=== PATIENT | female | born 1945 | race Caucasian/White ===

== ENCOUNTER → 2016-07-15 | Outpatient (REF) | payer MEDICARE ==
[2016-07-15 12:05] LABS: MEAN CORPUSCULAR HEMOGLOBIN 31.6 pg (27.0-33.0); MEAN CORPUSCULAR HGB CONC 34.4 g/dl (32.0-36.5); MEAN CORPUSCULAR VOLUME 91.9 fl (80.0-96.0); RED CELL DISTRIBUTION WIDTH 12.7 % (11.5-14.5); WHITE BLOOD COUNT 5.2 K/mm3 (4.0-10.0)
[2016-07-15 12:32] LABS: ALBUMIN 4.2 GM/DL (3.2-5.2); ALBUMIN/GLOBULIN RATIO 1.45 (1.00-1.93); ALKALINE PHOSPHATASE 83 U/L (45-117); ALT/SGPT 22 U/L (12-78); ANION GAP 7 MEQ/L (8-16); AST/SGOT 14 U/L (15-37); BILIRUBIN,TOTAL 0.5 MG/DL (0.2-1.0); BLOOD UREA NITROGEN 16 MG/DL (7-18); CALCIUM LEVEL 9.5 MG/DL (8.8-10.2); CARBON DIOXIDE LEVEL 31 MEQ/L (21-32); CHLORIDE LEVEL 104 MEQ/L (98-107); CHOLESTEROL LEVEL 174 MG/DL (<200); CREATININE FOR GFR 0.93 MG/DL (0.55-1.02); FERRITIN 34 NG/ML (8-252); GLOMERULAR FILTRATION RATE > 60.0 (>39); GLUCOSE, FASTING 108 MG/DL (83-110); PERCENT SATURATION 21.3 % (13.2-37.4); POTASSIUM SERUM 4.1 MEQ/L (3.5-5.1); SODIUM LEVEL 142 MEQ/L (136-145); TOTAL IRON BINDING CAPACITY 367 UG/DL (250-450); TOTAL PROTEIN 7.1 GM/DL (6.4-8.2); TRIGLYCERIDES LEVEL 120 MG/DL (<150)
== END ==
LOC: M SFHCPLAZ 08:22
PROVIDERS: ATTEND Family Medicine
DX: D64.9 Anemia, unspecified (principal); E78.2 Mixed hyperlipidemia

== ENCOUNTER → 2016-07-16 | Outpatient (CLI) | payer MEDICARE ==
--- NOTE | 2016-07-16 16:00 | REP ---
LEFT KNEE, FIVE VIEWS: HISTORY: Arthritis. There is no acute fracture or dislocation. There is narrowing of the joint spaces. Osteophytes are present on the femur, tibia and patella. IMPRESSION: Degenerative change as described above. Signed by Doug Butler MD 07/16/2016 04:01 P
== END ==
LOC: M ADAMS 15:06
PROVIDERS: ATTEND Family Medicine
DX: M17.12 Unilateral primary osteoarthritis, left knee (principal)

== ENCOUNTER 2016-10-22 06:24 | Day surgery (SDC) | payer MEDICARE ==
[~2016-10-22] VITALS: Ht 160 cm; Wt 94.8 kg
[~2016-10-22 06:24] MED LIST: CALC500T49 PO; LIPI10TA PO; LISI-538 PO; LUTE6CAP2 PO; NORV2TAB PO; OCUVCAP PO; OMEP40CA2 PO; STOO100C PO; TORS10TA3 PO; TYLE650T35 PO; VITA100067 PO
[2016-10-22] MEDS ORDERED: BALANCED SALT IRRIGATION SOLUTION 500ML BAG (FOR OR EYE MACHINE) As Ordered ONE (06:30)
[2016-10-22] MEDS ORDERED: LR 1,000 ML IV ONE (06:30)
[2016-10-22] MEDS ORDERED: ACETYLCHOLINE OPHTH SOLN 1% 2ML (MIOCHOL-E) As Ordered ONE (06:30)
[2016-10-22] MEDS ORDERED: LIDOCAINE 1% MDV 20ML VIAL SC ONE (06:30)
[2016-10-22] MEDS ORDERED: POVIDONE-IODINE 5% OPHTH PREP SOL 30ML As Ordered ONE (06:30)
[2016-10-22] MEDS ORDERED: DUOVISC (0.50ML VISCOAT/0.55ML PROVISC) OPHTH KIT As Ordered ONE (06:31)
[2016-10-22] MEDS ORDERED: LIDOCAINE 0.75%/EPINEPHRINE 0.025% IN BSS 1ML SYR INTRACAMERAL (OR ONLY) As Ordered ONE (06:31)
[2016-10-22] MEDS ORDERED: PROPARACAINE 0.5% OPHTH SOL 15ML OD ONE (07:00)
[2016-10-22] MEDS ORDERED: TROPICAMIDE 1% OPHTH SOLN 2ML OD ONE (07:00)
[2016-10-22] MEDS ORDERED: OFLOXACIN 0.3 % (OCUFLOX) OPTH SOL 5ML OD ONE (07:00)
[2016-10-22] MEDS ORDERED: PHENYLEPHRINE 2.5% OPHTH SOL 2ML OD ONE (07:00)
[2016-10-22] MEDS ORDERED: fentaNYL 100 MCG/2 ML INJECTION (J3010) As Ordered ONE (07:41)
[2016-10-22] MEDS ORDERED: MIDAZOLAM INJ 2 MG/2 ML VIAL (J2250) As Ordered ONE (07:41)
[2016-10-22 09:00] VITALS: BP 184/81
[2016-10-22] MEDS ORDERED: CEFUROXIME 1MG/0.1ML INTRACAMERAL INJ As Ordered ONE (10:06)
--- NOTE | 2016-10-22 17:00 | RO ---
DATE OF PROCEDURE: 10/22/2016 PREOPERATIVE DIAGNOSIS: Visually significant nuclear sclerotic cataract right eye. POSTOPERATIVE DIAGNOSIS: Visually significant nuclear sclerotic cataract right eye. PROCEDURE: Cataract extraction with use of phacoemulsification, and placement of intraocular lens, AU00T0 23.5D, right eye. SURGEON: Keon Galeas DO OPERATIONAL RISK ANALYST: ANESTHESIA: Local with monitored anesthesia care (MAC). COMPLICATIONS: None. POSTOPERATIVE CONDITION: Stable. INDICATION FOR SURGERY: Blurred vision right eye affecting patient's activities of daily living. DESCRIPTION OF PROCEDURE: The patient was seen in the preoperative area and properly identified. The correct operative eye was identified and marked. Attention was turned to that eye. The patient received topical antibiotics in the preoperative area. The patient then received topical dilating drops consisting of Tropicamide and Phenylephrine. The patient was then transferred to the operating room. The correct side was re-identified. The patient received topical anesthetics and antibiotics on the surface of the eye. The eye was prepped and draped in a sterile fashion. The upper and lower eyelids were isolated with Tegaderm tape, and the lids were held open with an adjustable speculum. Using a sideport blade, a paracentesis incision was made. Intraocular preservative-free lidocaine was then injected into the anterior chamber. Viscoelastic was then injected into the anterior chamber through the paracentesis. Using a 2.6 mm sharp-tipped keratome, the anterior chamber was entered via a temporal clear corneal incision. A continuous curvilinear capsulorrhexis was created with the aid of a 26g cystotome and utrata forceps. Hydrodissection was performed with balanced salt solution (BSS) on a blunt cannula until the nucleus was freely mobile. The crystalline lens was phacoemulsified and aspirated. Additional cohesive viscoelastic was placed into the capsular bag to deepen it. An AU00T0 23.5 lens D was placed into the capsular bag and confirmed by visualizing the continuous curvilinear capsulorrhexis. Additional irrigation and aspiration was used to remove cortical material and remaining viscoelastic. The clear corneal incision was hydrated with BSS on a blunt cannula. The lens was well positioned. The incisions were then tested for leaks and found to be negative. The eye was then palpated for appropriate pressure and adjusted accordingly with BSS. The eyelid speculum was carefully removed. A shield was placed. The patient tolerated the procedure well and was discharged to the recovery unit in a stable condition. [facility]
== END 2016-10-22 09:00 | disposition home or self-care (01) ==
LOC: M SDC 06:24
PROVIDERS: ATTEND Ophthalmology
DX: H25.11 Age-related nuclear cataract, right eye (principal); I10 Essential (primary) hypertension; E78.5 Hyperlipidemia, unspecified; D64.9 Anemia, unspecified; R01.1 Cardiac murmur, unspecified; K44.9 Diaphragmatic hernia without obstruction or gangrene; K21.9 Gastro-esophageal reflux disease without esophagitis; R06.83 Snoring; Z88.0 Allergy status to penicillin; Z88.1 Allergy status to other antibiotic agents; Z88.8 Allergy status to other drugs, medicaments and biological substances; Z79.899 Other long term (current) drug therapy; Z84.89 Family history of other specified conditions; Z78.0 Asymptomatic menopausal state
CPT/HCPCS: 66984; J2250; J3010; V2632

== ENCOUNTER → 2017-01-06 | Outpatient (REF) | payer MEDICARE ==
[2017-01-06 12:06] LABS: MEAN CORPUSCULAR HEMOGLOBIN 26.2 pg (27.0-33.0); MEAN CORPUSCULAR HGB CONC 30.8 g/dl (32.0-36.5); MEAN CORPUSCULAR VOLUME 85.1 fl (80.0-96.0); PLATELET COUNT, AUTOMATED 280 10^3/uL (150-450); RED CELL DISTRIBUTION WIDTH 12.6 % (11.5-14.5); RETIC HEMOGLOBIN EQUIVALENT 23.2 pg (24-36); RETICULOCYTE % 2.2 % (0.5-1.5); WHITE BLOOD COUNT 3.5 10^3/uL (4.0-10.0)
[2017-01-06 13:08] LABS: CALCIUM LEVEL 9.2 MG/DL (8.8-10.2); CREATININE FOR GFR 0.99 MG/DL (0.55-1.02); GLOMERULAR FILTRATION RATE 58.7 (>39); PERCENT SATURATION 6.3 % (13.2-45.0); POTASSIUM SERUM 4.3 MEQ/L (3.5-5.1)
== END ==
LOC: M SFHCPLAZ 09:02
PROVIDERS: ATTEND Family Medicine
DX: D50.8 Other iron deficiency anemias (principal); I10 Essential (primary) hypertension

== ENCOUNTER → 2017-06-02 | Outpatient (REF) | payer MEDICARE ==
[2017-06-02 11:46] LABS: HEMOGLOBIN 11.2 g/dl (12.0-15.5); MEAN CORPUSCULAR HEMOGLOBIN 29.9 pg (27.0-33.0); MEAN CORPUSCULAR HGB CONC 32.9 g/dl (32.0-36.5); MEAN CORPUSCULAR VOLUME 90.7 fl (80.0-96.0); PLATELET COUNT, AUTOMATED 215 10^3/uL (150-450); RED BLOOD COUNT 3.75 10^6/uL (4.00-5.40); RED CELL DISTRIBUTION WIDTH 12.7 % (11.5-14.5); RETIC HEMOGLOBIN EQUIVALENT 35.2 pg (24-36); RETICULOCYTE # 59.6 10^9/L (17-77); RETICULOCYTE % 1.6 % (0.5-1.5); WHITE BLOOD COUNT 4.1 10^3/uL (4.0-10.0)
[2017-06-02 12:16] LABS: ANION GAP 5 MEQ/L (8-16); BLOOD UREA NITROGEN 17 MG/DL (7-18); CALCIUM LEVEL 9.5 MG/DL (8.8-10.2); CARBON DIOXIDE LEVEL 31 MEQ/L (21-32); CHLORIDE LEVEL 109 MEQ/L (98-107); CREATININE FOR GFR 1.03 MG/DL (0.55-1.30); FERRITIN 26 NG/ML (8-252); GLOMERULAR FILTRATION RATE 55.9 (>39); GLUCOSE, FASTING 109 MG/DL (70-100); IRON (FE) 109 UG/DL (50-170); PERCENT SATURATION 31.7 % (13.2-45.0); POTASSIUM SERUM 4.3 MEQ/L (3.5-5.1); SODIUM LEVEL 145 MEQ/L (136-145); TOTAL IRON BINDING CAPACITY 344 UG/DL (250-450)
== END ==
LOC: M SFHCPLAZ 08:57
DX: D50.8 Other iron deficiency anemias (principal); I10 Essential (primary) hypertension
CPT/HCPCS: 83550

== ENCOUNTER → 2017-09-24 | Outpatient (CLI) | payer MEDICARE | LOC: M WHC 10:07 | DX: Z12.31 Encounter for screening mammogram for malignant neoplasm of breast (principal); Z78.0 Asymptomatic menopausal state; Z92.89 Personal history of other medical treatment | CPT/HCPCS: 77067 ==

== ENCOUNTER → 2018-04-21 | Outpatient (REF) | payer MEDICARE ==
[~2018-04-21] MED LIST changes: +FERR325T3 PO; +OPTI0.5D5 OU; +SODI2OPD OU
[2018-04-21 13:17] LABS: HEMATOCRIT 30.4 % (36.0-47.0); HEMOGLOBIN 9.6 g/dl (12.0-15.5); MEAN CORPUSCULAR HEMOGLOBIN 29.2 pg (27.0-33.0); MEAN CORPUSCULAR HGB CONC 31.6 g/dl (32.0-36.5); MEAN CORPUSCULAR VOLUME 92.4 fl (80.0-96.0); PLATELET COUNT, AUTOMATED 285 10^3/uL (150-450); RED BLOOD COUNT 3.29 10^6/uL (4.00-5.40); WHITE BLOOD COUNT 4.7 10^3/uL (4.0-10.0)
[2018-04-21 14:01] LABS: ALBUMIN 4.4 GM/DL (3.2-5.2); BILIRUBIN,TOTAL 0.3 MG/DL (0.2-1.0); CHOLESTEROL RISK RATIO 2.314 (<5); CREATININE FOR GFR 1.03 MG/DL (0.55-1.30); GLOMERULAR FILTRATION RATE 55.9 (>39); PERCENT SATURATION 61.8 % (13.2-45.0); POTASSIUM SERUM 4.6 MEQ/L (3.5-5.1); TOTAL 25(OH) VITAMIN D 33.9 NG/ML (30.0-100.0); TOTAL PROTEIN 7.1 GM/DL (6.4-8.2)
[2018-04-21 14:42] LABS: HEMOGLOBIN A1c 4.6 %
== END ==
LOC: M SFHCPLAZ 10:23
PROVIDERS: ATTEND Family Medicine
DX: D50.8 Other iron deficiency anemias (principal); E78.2 Mixed hyperlipidemia; R73.01 Impaired fasting glucose; E55.9 Vitamin D deficiency, unspecified; Z79.899 Other long term (current) drug therapy

== ENCOUNTER 2018-06-02 12:28 | Outpatient (CLI) | payer MEDICARE ==
[~2018-06-02] VITALS: Ht 160 cm; Wt 92.7 kg
[2018-06-02 12:30] VITALS: BP 173/81
[2018-06-02] MEDS ORDERED: IRON SUCROSE 200 MG in NS 200 ML IV ONE (13:00)
[2018-06-02 13:23] VITALS: BP 154/69
[2018-06-02 14:30] VITALS: BP 155/68
[2018-06-02 15:00] VITALS: BP 150/67
[2018-06-02 15:20] VITALS: BP 176/74
== END 2018-06-02 15:20 | disposition home or self-care (01) ==
LOC: M INFU 12:28
PROVIDERS: ATTEND Family Medicine
DX: D50.8 Other iron deficiency anemias (principal); Z79.899 Other long term (current) drug therapy
CPT/HCPCS: 96365; 96366; J1756

== ENCOUNTER 2018-06-15 12:41 | Outpatient (CLI) | payer MEDICARE ==
[~2018-06-15] VITALS: Ht 160 cm; Wt 92.7 kg
[2018-06-15 13:01] VITALS: BP 169/69
[2018-06-15] MEDS ORDERED: IRON SUCROSE 200 MG in NS 200 ML IV ONE (14:00)
[2018-06-15 14:05] VITALS: BP 150/69
[2018-06-15 15:15] VITALS: BP 122/57
[2018-06-15 16:16] VITALS: BP 139/63
[2018-06-15 16:42] VITALS: BP 147/62
== END 2018-06-15 16:45 | disposition home or self-care (01) ==
LOC: M INFU 12:41
PROVIDERS: ATTEND Family Medicine
DX: D50.9 Iron deficiency anemia, unspecified (principal); Z88.0 Allergy status to penicillin; Z88.1 Allergy status to other antibiotic agents
CPT/HCPCS: 96365; 96366; J1756

== ENCOUNTER → 2018-10-14 | Outpatient (CLI) | payer MEDICARE ==
[~2018-10-14] MED LIST changes: +ACET-897 PO; +ASPE16CR TOP; +CALC500T68 PO; +D200CAP3 PO; +EUFL10IN INJ; +MM S100C PO; +RISATAB3 PO; -STOO100C PO; +SUCR10SS PO
[2018-10-14 20:22] LABS: PERCENT SATURATION 4.7 % (13.2-45.0)
[2018-10-14 20:24] LABS: HEMATOCRIT 29.7 % (36.0-47.0); HEMOGLOBIN 8.9 g/dl (12.0-15.5); MEAN CORPUSCULAR HEMOGLOBIN 24.4 pg (27.0-33.0); MEAN CORPUSCULAR VOLUME 81.4 fl (80.0-96.0); PLATELET COUNT, AUTOMATED 255 10^3/uL (150-450); RED BLOOD COUNT 3.65 10^6/uL (4.00-5.40); WHITE BLOOD COUNT 5.4 10^3/uL (4.0-10.0)
== END ==
LOC: M WUC 15:42
PROVIDERS: ATTEND Family Medicine
DX: D50.8 Other iron deficiency anemias (principal)

== ENCOUNTER 2018-10-15 21:44 | Inpatient (IN) | payer MEDICARE ==
[~2018-10-15] VITALS: Ht 157.5 cm; Wt 93.6 kg
[~2018-10-15 21:44] MED LIST changes: -ACET-897 PO; -ASPE16CR TOP; -CALC500T68 PO; -D200CAP3 PO; -EUFL10IN INJ; -RISATAB3 PO; -SUCR10SS PO
[2018-10-15] MEDS ORDERED: NS 1,000 ML IV ONE (22:00)
[2018-10-15] MEDS ORDERED: ONDANSETRON 4MG/2ML VIAL (J2405) IV ONE (22:00)
[2018-10-15 22:31] LABS: BASO % 0.2 % (0.0-1.0); EOS % 0.2 % (0.0-3.0); HEMATOCRIT 22.1 % (36.0-47.0); LYMPH # 0.7 10^3/uL (1.5-4.5); LYMPH % 8.3 % (24.0-44.0); MEAN CORPUSCULAR HEMOGLOBIN 24.2 pg (27.0-33.0); MEAN CORPUSCULAR HGB CONC 29.9 g/dl (32.0-36.5); MONO # 0.5 10^3/uL (0.0-0.8); MONO % 5.6 % (0.0-5.0); NEUTROPHILS # 7.4 10^3/uL (1.8-7.7); NEUTROPHILS % 85.4 % (36.0-66.0); PLATELET COUNT, AUTOMATED 240 10^3/uL (150-450); RED BLOOD COUNT 2.73 10^6/uL (4.00-5.40); WHITE BLOOD COUNT 8.7 10^3/uL (4.0-10.0)
[2018-10-15 22:36] LABS: HEMOGLOBIN 6.6 g/dl (12.0-15.5)
[2018-10-15 22:55] LABS: MEAN CORPUSCULAR HEMOGLOBIN 23.6 pg (27.0-33.0); MEAN CORPUSCULAR VOLUME 81.1 fl (80.0-96.0); PLATELET COUNT, AUTOMATED 224 10^3/uL (150-450); RED BLOOD COUNT 2.59 10^6/uL (4.00-5.40); WHITE BLOOD COUNT 8.6 10^3/uL (4.0-10.0)
[2018-10-15 22:57] LABS: HEMOGLOBIN 6.1 g/dl (12.0-15.5)
[2018-10-15 23:03] LABS: ALBUMIN 3.3 GM/DL (3.2-5.2); ALT/SGPT 16 U/L (12-78); BILIRUBIN,DIRECT < 0.1 MG/DL (0.0-0.2); BILIRUBIN,TOTAL 0.2 MG/DL (0.2-1.0); BLOOD UREA NITROGEN 64 MG/DL (7-18); CALCIUM LEVEL 8.2 MG/DL (8.8-10.2); CARBON DIOXIDE LEVEL 24 MEQ/L (21-32); CHLORIDE LEVEL 113 MEQ/L (98-107); CREATININE FOR GFR 1.05 MG/DL (0.55-1.30); GLOMERULAR FILTRATION RATE 54.5 (>39); GLUCOSE, FASTING 144 MG/DL (70-100); LIPASE 133 U/L (73-393); POTASSIUM SERUM 4.3 MEQ/L (3.5-5.1); SODIUM LEVEL 146 MEQ/L (136-145)
[2018-10-15] MEDS ORDERED: PANTOPRAZOLE 40MG INJ (PROTONIX) (C9113) IV ONE (23:45)
[2018-10-16] VITALS (10 sets, daily range): BP systolic 122–161; BP diastolic 59–74
[2018-10-16] MEDS ORDERED: ASPE16CR TOP (00:10)
[2018-10-16] MEDS ORDERED: EUFL10IN INJ (00:10)
[2018-10-16] MEDS ORDERED: D200CAP3 PO (00:10)
[2018-10-16] MEDS ORDERED: CALC500T68 PO (00:10)
[2018-10-16] MEDS ORDERED: ACET-897 PO (00:10)
[2018-10-16] MEDS ORDERED: PANTOPRAZOLE 40MG INJ (PROTONIX) (C9113) IV ONE (00:45)
[2018-10-16] MEDS ORDERED: ISOVUE-370 76% 100ML VIAL (Q9967) As Ordered ONE (00:55)
[2018-10-16] MEDS: PANTOPRAZOLE SODIUM 40 MG in D5W 50 ML IV SCH ×5 (01:10→20:47)
[2018-10-16 01:23] LABS: MAGNESIUM LEVEL 1.9 MG/DL (1.8-2.4); THYROID STIMULATING HORMONE 0.442 uIU/ML (0.358-3.740)
[2018-10-16] MEDS: ACETAMINOPHEN TAB 650MG DOSE (2X325MG) PO PRN (02:14)
--- NOTE | 2018-10-16 02:17 | REPVR ---
EXAM: CT Abdomen and Pelvis With Contrast EXAM DATE/TIME: 10/16/18 (1:24am) CLINICAL HISTORY: 73 year old female with nausea and vomiting. Possible GI bleeding. TECHNIQUE: Imaging protocol: Computed tomography of the abdomen and pelvis with intravenous contrast. Radiation optimization: All CT scans at this facility use at least one of these dose optimization techniques: automated exposure control; mA and/or kV adjustment per patient size (includes targeted exams where dose is matched to clinical indication); or iterative reconstruction. Contrast material: Isovue 370 Contrast volume: 100 ml Contrast route: IV COMPARISON: CT ABDOMEN PELVIS of 07/31/15 FINDINGS: Liver: Normal. No solid mass. Gallbladder and bile ducts: Previous cholecystectomy. No ductal dilatation. Pancreas: Normal. No ductal dilatation. Spleen: Normal. No splenomegaly. Adrenals: Normal. No mass. Kidneys and ureters: No hydronephrosis. Small left lower renal pole cyst. Stomach and bowel: Large hiatal hernia (7.8 x 4.5 cm in axial dimensions) (vs. intrathoracic location of the proximal stomach). No bowel obstruction. Appendix: No evidence of appendicitis. Intraperitoneal space: Normal. No free air. No significant fluid collection. Vasculature: Unremarkable. No abdominal aortic aneurysm. Lymph nodes: Unremarkable. No enlarged lymph nodes. Bladder: Unremarkable as visualized. Reproductive: Unremarkable as visualized. Bones/joints: No acute fracture. Scattered degenerative thoracolumbar spine changes. Soft tissues: Unremarkable. IMPRESSION: No acute findings. No acute bowel pathology. No hydronephrosis. Previous cholecystectomy. See additional comments above. Electronically signed by: Ana Mayen On 10/16/2018 02:17:24 AM
--- NOTE | 2018-10-16 05:11 | HPEPDOC ---
General Date of Admission Oct 16, 2018 at 00:30 Date of Service: Oct 16, 2018 Primary Care Physician: Jay Chou MD Attending Physician: SRIRAM LOWE MD Chief Complaint The patient is a 73-year-old female admitted with a reason for visit of Gastrointestinal Bleed. Source: Patient, Family, Old records Exam Limitations: No limitations Timing/Duration: Day(s) Severity: Moderate Associated Symptoms: Malaise, Nausea, Vomiting, Shortness of breath History of Present Illness 73 year old elderly female presents to the ED at [facility] with complaints of shortness of breath with ambulation, fatigue, weakness, dry mouth, lightheadedness which began a couple days ago with an episode of diarrhea. Yesterday she experienced nausea, vomiting and abdominal pain with those symptoms before making the decision to come to the ED. She reports she had some popcorn and had a hamburger from a local restaurant which she thought was perhaps undercooked causing her to have food poisoning thus the culprit of her symptoms. She denies chest pain, syncope and collapse, palpitations, fever, body aches and chills at this time. She has a significant medical history of Essential Hypertension, Hyperlipidemia, GERD, Iron Deficient Anemia, DJD/Arthritis, Varicose Veins, Osteoporosis.Labs collected CBC with H&H 6.6/22.1 which was repeated and confirmed H&H 6.1/22.1, patient typed and cross with blood transfusion consent signed in ED for 2 units of PRBC. Patient will be admitted to Inpatient services under Hospitalist program for ongoing evaluation. Home Medications Scheduled Acetaminophen (Tylenol Extra Strength) 500 Mg Tablet, 1,000 MG PO Q4H, (Reported) Amlodipine Besylate (Norvasc) 2.5 Mg Tab, 2.5 MG PO DAILY, (Reported) Atorvastatin Calcium (Lipitor) 10 Mg Tab, 10 MG PO DAILY, (Reported) Calcium Carbonate (Calcium) 500 Mg Tab.chew, 500 MG PO DAILY, (Reported) Cholecalciferol (Vitamin D3) (Vitamin D3) 2,000 Unit Capsule, 2,000 UNIT PO DAILY, (Reported) Hyaluronate Sodium (Euflexxa) 20 Mg/2 Ml Syringe, 20 MG INJ QWEEK, (Reported) INJ IN KNEE WEEKLY FOR 3 WEEKS; DUE 10/19/18 FOR INJ. Lisinopril (Lisinopril) 20 Mg Tab, 40 MG PO DAILY, (Reported) Lutein (Lutein) 6 Mg Cap, 20 MG PO DAILY, (Reported) Omeprazole (Omeprazole) 40 Mg Cap, 40 MG PO DAILY, (Reported) Torsemide (Torsemide) 10 Mg Tab, 10 MG PO DAILY, (Reported) Vit C/E/Zn/Coppr/Lutein/Zeaxan (Ocuvite Lutein-Zeaxanthin Cap) 1 Cap Cap, 1 CAP PO DAILY, (Reported) Scheduled PRN Acetaminophen (Tylenol Arthritis) 650 Mg Tab, 1,300 MG PO Q12H PRN for PAIN, (Reported) Carboxymethylcellulos/Glycerin (Refresh Optive Eye Drops) 1 Jewel Jewel, 1 JEWEL OU for DRY EYES, (Reported) Docusate Sodium (Stool Softener) 100 Mg Cap, 100 MG PO DAILY PRN for CONSTIPATION, (Reported) Lidocaine HCl (Aspercreme) 4% Cream..g., 1 APLCT TOP TID PRN for PAIN, (Reported) APPLIES TO KNEES Allergies Coded Allergies: Anesthetics - Kirsten Type- Parabens (Verified Allergy, Severe, MALIGNANT HYPERTHERMIA, 10/16/18) REACTION TO ANESTHETIC GASES; FAMILY MEMBERS HAVE FROM REACTION tetracycline (Verified Allergy, Severe, TONGUE SWELLING, 05/26/18) Penicillins (Verified Allergy, Intermediate, RASH, 05/26/18) Past Medical History Medical History Essential Hypertension, Hyperlipidemia, Congestive Heart Failure, GERD, Iron Deficient Anemia, DJD/Arthritis, Varicose Veins, Osteoporosis Surgical History Tonsillectomy and adenoidectomy in childhood, Cholecystectomy-2002, Right Eye Cataract, Colonoscopy & EGD Family History Significant Family History: Diabetes (mom), Heart disease (mpm), Vascular disease (CVA-DAD-62 ), Other (IN-Dad) Social History * Smoker: former Smoker (cigarettes) Alcohol: occationally Drugs: denies Recent Travel/Sick Contacts: Denies: Recent travel, Recent sick contacts Psychosocial History: Derick SI and HI A-FIB/CHADSVASC A-FIB History Current/History of A-Fib/PAF?: No Review of Systems Constitutional: Reports: Malaise, Weakness, Fatigue Eyes: Denies: Pain, Vision change ENT: Reports: Other Symptoms (dry mouth) Skin: Denies: Rash, Lesions, Breakdown Pulmonary: Reports: Dyspnea Cardiovascular: Reports: Lt Headedness Gastrointestinal: Reports: Nausea, Vomiting, Abdominal Pain, Diarrhea Genitourinary: Denies: Dysuria, Frequency, Incontinence, Retention Endocrine: Denies: Polydipsia, Polyphagia, Polyuria, Heat Intolerance, Cold Intolerance, Other Endocrine Sx Musculoskeletal: Reports: Back Pain Neurological: Reports: Weakness Psych: Reports: Anxiety Physical Examination General Exam: Positive: Alert, Cooperative, No Acute Distress Eye Exam: Positive: PERRLA, Conjunctiva & lids normal, Sclera icteric ENT Exam: Positive: Atraumatic, Pharynx Normal, Tongue Midline Neck Exam: Positive: Supple, JVD Chest Exam: Positive: Clear to auscultation, Normal air movement Heart Exam: Positive: Tachycardic, Regular Rhythm, Normal S1, Normal S2 Telemetry: Positive: Sinus, Tachycardia Abdomen Exam: Positive: Normal bowel sounds, Soft, Tenderness (to palpation periumbilical) Extremity Exam: Positive: Edema (pitting BLE and ankles) Skin Exam: Positive: Other skin issue (extra dry peeling skin bilateral lower legs and feet; feet cool to touch) Neuro Exam: Positive: Normal Speech, Normal Tone, Cranial Nerves 3-12 NL Psych Exam: Positive: Mental status NL, Oriented x 3, Other (anxious) Vital Signs Vital Signs Date Time Temp Pulse Resp B/P (MAP) Pulse Ox O2 Delivery O2 Flow Rate FiO2 10/16/18 01:07 153/67 (95) 10/16/18 00:59 100 97 10/15/18 23:55 16 Room Air 10/15/18 22:03 99.3 Laboratory Data Labs 24H Laboratory Tests 2 10/15/18 22:25: Immature Granulocyte % (Auto) 0.3, White Blood Count 8.7, Red Blood Count 2.73L, Hemoglobin 6.6#*L, Hematocrit 22.1L, Mean Corpuscular Volume 81.0, Mean Corpuscular Hemoglobin 24.2L, Mean Corpuscular Hemoglobin Concent 29.9L, Red Cell Distribution Width 15.1H, Platelet Count 240, Neutrophils (%) (Auto) 85.4H, Lymphocytes (%) (Auto) 8.3L, Monocytes (%) (Auto) 5.6H, Eosinophils (%) (Auto) 0.2, Basophils (%) (Auto) 0.2, Neutrophils # (Auto) 7.4, Lymphocytes # (Auto) 0.7L, Monocytes # (Auto) 0.5, Eosinophils # (Auto) 0.0, Basophils # (Auto) 0.0, Nucleated Red Blood Cells % (auto) 0.0, Anion Gap 9, Glomerular Filtration Rate 54.5, Calcium Level 8.2L, Aspartate Amino Transf (AST/SGOT) 20, Alanine Aminotransferase (ALT/SGPT) 16, Alkaline Phosphatase 82, Total Bilirubin 0.2, Direct Bilirubin < 0.1, Total Protein 6.0L, Albumin 3.3, Albumin/Globulin Ratio 1.22, Lipase 133 10/15/18 22:50: Nucleated Red Blood Cells % (auto) 0.0 CBC/BMP Laboratory Tests 10/15/18 22:25 Red Blood Count 2.73 L, Mean Corpuscular Volume 81.0, Mean Corpuscular Hemoglobi n 24.2 L, Mean Corpuscular Hemoglobin Concent 29.9 L, Red Cell Distribution Width 15.1 H, Neutrophils (%) (Auto) 85.4 H, Lymphocytes (%) (Auto) 8.3 L, Monocytes (%) (Auto) 5.6 H, Eosinophils (%) (Auto) 0.2, Basophils (%) (Auto) 0.2, Neutrophils # (Auto) 7.4, Lymphocytes # (Auto) 0.7 L, Monocytes # (Auto) 0.5, Eosinophils # (Auto) 0.0, Basophils # (Auto) 0.0 10/15/18 22:50 Red Blood Count 2.59 L, Mean Corpuscular Volume 81.1, Mean Corpuscular Hemoglobin 23.6 L, Mean Corpuscular Hemoglobin Concent 29.0 L, Red Cell Distribution Width 15.0 H Assessment/Plan 73 year old elderly female presents to the ED at [facility] with complaints of shortness of breath with ambulation, fatigue, weakness, dry mouth, lightheadedness which began a couple days ago with an episode of diarrhea. Yesterday she experienced nausea, vomiting and abdominal pain with those symptoms before making the decision to come to the ED. She reports she had some popcorn and had a hamburger from a local restaurant which she thought was perhaps undercooked causing her to have food poisoning thus the culprit of her symptoms. She denies chest pain, syncope and collapse, palpitations, fever, body aches and chills at this time. She has a significant medical history of Essential Hypertension, Hyperlipidemia, Congestive Heart Failure, GERD, Iron Deficient Anemia, DJD/Arthritis, Varicose Veins, Osteoporosis.Labs collected CBC with H&H 6.08/06.1 which was repeated and confirmed H&H 6.03/08., patient typed and cross with blood transfusion consent signed in ED for 2 units of PRBC. Patient will be admitted to Inpatient services under Hospitalist program for ongoing evaluation. I personally reviewed patients CT Chest/Abdomen with IV Contrast which shows no abdominal aneurysm, no appendicitis, Large Hiatal hernia, and degenerative changes in thoracolumbar spine, I personally reviewed patients EKG which shows sinus tachycardia with nonspecific ST & T wave abnormality. Vent rate 89, MT interval 134, QRS duration 79, QT/QTc 349/396, PRT axis 55 20 59 GI Bleed-Acute -Admit to Inpatient PCU under Hospitalist -Telemetry monitory with continuous pulse oximetry -Fecal Occult Blood -Positive (in ED) - CBC repeat 1 hour post blood transfusion -StrictI&O's, daily weight -IV Fluid resuscitation Normal Saline 125 cc/hr -Trending H&H q 6 hour -CT Chest Abdomen w IV contrast Stat -Morning labs: CBC, CMP, LA (lactic acid), MG, Phos Nausea/Vomiting and diarrhea Acute Possible gastroenteritis -Stop Zofran 4mg -Compazine 5 mg IV q 6 hours as needed for nausea/vomiting Essential Hypertension-chronic -Continue taking home medication Amlodipine 2.5 mg daily, Lisinopril 20 mg po twice a day, Torsemide 10 mg po daily (EDEMA BLE) -Repeat EKG on unit GERD-chronic -Hold Omeprazole 40 mg daily -Start Protonix 40 mg IV now -Protonix 10 mg IV drip Hyperlipidemia-chronic -Continue Lipitor 10 mg po at bedtime Macular Degeneration -Chronic -Continue vitamins DJD/Osteoarthritis-chronic -Continue taking Tylenol Arthritis as needed Prognosis: Fair DVT prophylaxis: SCDS bilateral lower extremities Discharge: Pending Problems (1) GI bleed Status: Acute Response to Treatment: Progressing Discussed With: Patient, Family with Pt Consent Problem Specific Plan: Monitor Clinically, Repeat Labs Plan / VTE VTE Prophylaxis Ordered?: Yes VTE Exclusion Mechanical Proph: Ruddy Lower Ex DVT Plan IVF: Continue Diet: Make NPO Activity: Continue Current Medications: Replete Electrolytes IV Diagnostics: Check Labs, Repeat Labs in AM Attending Note Attending Note Will check GI panel. Severe Iron deficiency possibly has underlying chronic slow GIB. I dose of lasix in between 2 units of PRBC. will not give fluid for now. allow clear liquids. DAPHNEY GOODWIN Oct 16, 2018 01:31 SRIRAM LOWE MD Oct 16, 2018 22:51
[2018-10-16 05:45] LABS: PLATELET COUNT, AUTOMATED 201 10^3/uL (150-450)
[2018-10-16 06:08] LABS: INR 1.14; PARTIAL THROMBOPLASTIN TIME 20.9 SECONDS (25.0-38.4); PROTHROMBIN TIME 14.3 SECONDS (11.8-14.0)
[2018-10-16 06:11] LABS: D-DIMER QUANT 3278.69 ng/ml (<500)
[2018-10-16] MEDS ORDERED: NS 1,000 ML IV SCH ×2 (06:15→18:30)
[2018-10-16] MEDS ORDERED: PROCHLORPERAZINE 10 MG/2 ML VIAL (J0780) IV PRN (06:15)
[2018-10-16 06:54] LABS: PHOSPHORUS LEVEL 3.6 MG/DL (2.5-4.9)
--- NOTE | 2018-10-16 07:20 | ECGEPIP ---
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
[2018-10-16 07:45] LABS: HEMATOCRIT 25.5 % (36.0-47.0)
[2018-10-16] MEDS: ATORVASTATIN 10 MG TAB PO SCH (10:02)
[2018-10-16] MEDS: OCUVITE 1 TAB PO SCH (10:03)
[2018-10-16] MEDS: LISINOPRIL 20 MG TAB PO SCH (10:03)
[2018-10-16] MEDS: TORSEMIDE 10 MG TABLET PO SCH (10:06)
[2018-10-16] MEDS: VITAMIN D 1,000 INTERNATIONAL UNITS TABLET PO SCH (10:06)
[2018-10-16 12:19] LABS: HEMATOCRIT 24.5 % (36.0-47.0); HEMOGLOBIN 7.9 g/dl (12.0-15.5)
--- NOTE | 2018-10-16 12:20 | ECGEPIP ---
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
--- NOTE | 2018-10-16 14:02 | IPNPDOC ---
Subjective Date Seen The patient was seen on 10/16/18. Subjective Chief Complaint/HPI improved dyspnea since admission Constitutional: Denies: Chills Eyes: Denies: Pain ENT: Denies: Head Aches Skin: Denies: Rash Pulmonary: Denies: Dyspnea, Cough Cardiovascular: Denies: Chest Pain Gastrointestinal: Denies: Nausea, Vomiting Genitourinary: Denies: Dysuria Objective Physical Examination General Exam: Positive: Alert, Cooperative, No Acute Distress Eye Exam: Positive: PERRLA, Conjunctiva & lids normal, Sclera icteric ENT Exam: Positive: Atraumatic, Pharynx Normal, Tongue Midline Neck Exam: Positive: Supple, JVD Chest Exam: Positive: Clear to auscultation, Normal air movement Heart Exam: Positive: Tachycardic, Regular Rhythm, Normal S1, Normal S2 Telemetry: Positive: Sinus, Tachycardia Abdomen Exam: Positive: Normal bowel sounds, Soft, Tenderness (to palpation periumbilical) Extremity Exam: Positive: Edema (pitting BLE and ankles) Skin Exam: Positive: Other skin issue (extra dry peeling skin bilateral lower legs and feet; feet cool to touch) Neuro Exam: Positive: Normal Speech, Normal Tone, Cranial Nerves 3-12 NL Psych Exam: Positive: Mental status NL, Oriented x 3, Other (anxious) Assessment /Plan Problems (1) GI bleed Status: Acute Response to Treatment: Progressing Discussed With: Patient, Family with Pt Consent Problem Specific Plan: Monitor Clinically, Repeat Labs Problem Text: acute on chronic, favor acute GE (4D prior low grade fever, intermittent diarrhea, increased burping; on DOA NBNB vomitus x 3 and black diarrhea) continue panto gtt (was on HD omep 40) 10/18 UGISBFT P (tc EGD/colon repeat by W, +/- outpx capsule) 10/16 7.4-tx 1u, SLIV, advance to clears, + sulcraf, check GI panel-ETCE; therefore, cipro 3D 10/15/18 6.1 sp 2u PRBCs 04/2018 9.6, 92 06/2016 hgb 13.4 10/16 TTG, H pylori Ab P 10/15 +HO 10/15 5%/meghann 8/CHr 22/RC 2 10/15 B12 P 10/15 CT AP NAD 05/2017 EGD/colon desc/sig/rectal losis-W (2) Hypertension Problem Text: Stable on HD lsin 40, tor 10, amlo 2.5 (3) Systolic murmur Status: Chronic Problem Text: repeat 05/2006 TTE c mild aortic sclerosis (4) Anemia, iron deficiency Status: Chronic Problem Text: as per GI bleed plan Fe sucrose 500 mg total prior to dc Plan/VTE VTE Prophylaxis Ordered?: No VTE Exclusion Mechanical Proph: Ruddy Lower Ex DVT VTE Exclusion Pharmacological: Hemorrhage Plan IVF: Continue Diet: Make NPO Activity: Continue Current Medications: Replete Electrolytes IV Diagnostics: Check Labs, Repeat Labs in AM VS, I&O, 24H, Fishbone Vital Signs/I&O Vital Signs Date Time Temp Pulse Resp B/P (MAP) Pulse Ox O2 Delivery O2 Flow Rate FiO2 10/16/18 11:55 99.2 83 18 122/67 (85) 100 10/15/18 23:55 Room Air I&O- Last 24 Hours up to 6 AM 10/16/18 05:59 Intake Total 1132 ml Balance 1132 ml Laboratory Data 24H LABS Laboratory Tests 2 10/15/18 22:25: Immature Granulocyte % (Auto) 0.3, White Blood Count 8.7, Red Blood Count 2.73L, Hemoglobin 6.6#*L, Hematocrit 22.1L, Mean Corpuscular Volume 81.0, Mean Corpuscular Hemoglobin 24.2L, Mean Corpuscular Hemoglobin Concent 29.9L, Red Cell Distribution Width 15.1H, Platelet Count 240, Neutrophils (%) (Auto) 85.4H, Lymphocytes (%) (Auto) 8.3L, Monocytes (%) (Auto) 5.6H, Eosinophils (%) (Auto) 0.2, Basophils (%) (Auto) 0.2, Neutrophils # (Auto) 7.4, Lymphocytes # (Auto) 0.7L, Monocytes # (Auto) 0.5, Eosinophils # (Auto) 0.0, Basophils # (Auto) 0.0, Nucleated Red Blood Cells % (auto) 0.0, Anion Gap 9, Glomerular Filtration Rate 54.5, Calcium Level 8.2L, Magnesium Level 1.9, Aspartate Amino Transf (AST/SGOT) 20, Alanine Aminotransferase (ALT/SGPT) 16, Alkaline Phosphatase 82, Total Bilirubin 0.2, Direct Bilirubin < 0.1, Total Protein 6.0L, Albumin 3.3, Albumin/Globulin Ratio 1.22, Lipase 133, Thyroid Stimulating Hormone (TSH) 0.442 10/15/18 22:50: Nucleated Red Blood Cells % (auto) 0.0 10/16/18 05:35: Prothrombin Time 14.3H, Prothromb Time International Ratio 1.14, Activated Partial Thromboplast Time 20.9L, Fibrinogen 284, D-Dimer, Quantitative 3278.69H, Ammonia 39H, Lactate Dehydrogenase 322H 10/16/18 06:22: Magnesium Level 2.0, Lactic Acid Level 0.8, Phosphorus Level 3.6 CBC/BMP Laboratory Tests 10/15/18 22:25 Red Blood Count 2.73 L, Mean Corpuscular Volume 81.0, Mean Corpuscular Hemoglobin 24.2 L, Mean Corpuscular Hemoglobin Concent 29.9 L, Red Cell Distribution Width 15.1 H, Neutrophils (%) (Auto) 85.4 H, Lymphocytes (%) (Auto) 8.3 L, Monocytes (%) (Auto) 5.6 H, Eosinophils (%) (Auto) 0.2, Basophils (%) (Auto) 0.2, Neutrophils # (Auto) 7.4, Lymphocytes # (Auto) 0.7 L, Monocytes # (Auto) 0.5, Eosinophils # (Auto) 0.0, Basophils # (Auto) 0.0 10/15/18 22:50 Red Blood Count 2.59 L, Mean Corpuscular Volume 81.1, Mean Corpuscular Hemoglobin 23.6 L, Mean Corpuscular Hemoglobin Concent 29.0 L, Red Cell Distribution Width 15.0 H 10/16/18 05:35 10/16/18 12:07 Massimo Mayen M.D. Oct 16, 2018 14:02
[2018-10-16] MEDS: SUCRALFATE SUSP 1GM/10ML UD PO SCH ×2 (14:40→18:31)
[2018-10-16 18:03] LABS: HEMATOCRIT 23.6 % (36.0-47.0); HEMOGLOBIN 7.4 g/dl (12.0-15.5)
[2018-10-16] MEDS: CIPROFLOXACIN 500 MG TAB PO SCH (18:46)
[2018-10-16] MEDS ORDERED: FUROSEMIDE 40 MG/4 ML VIAL (J1940) IV ONE (20:00)
[2018-10-17] MEDS: ACETAMINOPHEN TAB 650MG DOSE (2X325MG) PO PRN ×2 (00:08→12:43)
[2018-10-17] MEDS: SUCRALFATE SUSP 1GM/10ML UD PO SCH ×4 (00:08→17:46)
[2018-10-17 00:50] VITALS: BP 150/68
[2018-10-17 00:54] LABS: HEMATOCRIT 28.9 % (36.0-47.0)
[2018-10-17 01:06] LABS: HEMOGLOBIN 9.4 g/dl (12.0-15.5)
[2018-10-17] MEDS: PANTOPRAZOLE SODIUM 40 MG in D5W 50 ML IV SCH ×2 (01:15→06:13)
[2018-10-17 04:00] VITALS: BP 138/61
[2018-10-17 06:13] LABS: HEMATOCRIT 25.4 % (36.0-47.0); MEAN CORPUSCULAR HEMOGLOBIN 25.3 pg (27.0-33.0); MEAN CORPUSCULAR HGB CONC 31.5 g/dl (32.0-36.5); MEAN CORPUSCULAR VOLUME 80.4 fl (80.0-96.0); PLATELET COUNT, AUTOMATED 185 10^3/uL (150-450); RED BLOOD COUNT 3.16 10^6/uL (4.00-5.40); WHITE BLOOD COUNT 6.7 10^3/uL (4.0-10.0)
[2018-10-17] MEDS: CIPROFLOXACIN 500 MG TAB PO SCH ×2 (06:13→17:46)
[2018-10-17 06:50] LABS: ALBUMIN 3.2 GM/DL (3.2-5.2); ALT/SGPT 13 U/L (12-78); BILIRUBIN,TOTAL 0.5 MG/DL (0.2-1.0); BLOOD UREA NITROGEN 22 MG/DL (7-18); CALCIUM LEVEL 8.3 MG/DL (8.8-10.2); CARBON DIOXIDE LEVEL 27 MEQ/L (21-32); CHLORIDE LEVEL 114 MEQ/L (98-107); CREATININE FOR GFR 0.91 MG/DL (0.55-1.30); GLOMERULAR FILTRATION RATE > 60.0 (>39); GLUCOSE, FASTING 101 MG/DL (70-100); POTASSIUM SERUM 3.2 MEQ/L (3.5-5.1); SODIUM LEVEL 149 MEQ/L (136-145); TOTAL PROTEIN 5.8 GM/DL (6.4-8.2)
[2018-10-17 08:00] VITALS: BP 138/64
[2018-10-17] MEDS: OCUVITE 1 TAB PO SCH (09:22)
[2018-10-17] MEDS: ATORVASTATIN 10 MG TAB PO SCH (09:22)
[2018-10-17] MEDS: VITAMIN D 1,000 INTERNATIONAL UNITS TABLET PO SCH (09:22)
[2018-10-17] MEDS: LISINOPRIL 20 MG TAB PO SCH (09:23)
[2018-10-17] MEDS: TORSEMIDE 10 MG TABLET PO SCH (10:08)
[2018-10-17] MEDS ORDERED: POTASSIUM CHLORIDE 10 MEQ SR TABLET PO ONE (10:15)
--- NOTE | 2018-10-17 10:27 | IPNPDOC ---
Subjective Date Seen The patient was seen on 10/17/18. Subjective Chief Complaint/HPI GIB, EPEC Events since last encounter Stool + for EPEC. Started on Cipro. Had 2 very small formed black stools last evening. tolerating full liquids. States fatigue is mildly improved. Planned capsule endoscopy in am. Constitutional: Denies: Chills, Fever, Night Sweats Pulmonary: Denies: Dyspnea, Cough Cardiovascular: Denies: Chest Pain, Palpitations, Orthopnea, Paroxysmal Noc. Dyspnea, Lt Headedness Gastrointestinal: Reports: Nausea; Denies: Vomiting, Abdominal Pain, Diarrhea, Constipation Psych: Reports: Mood Normal; Denies: Depression, Memory Issues Objective Physical Examination General Exam: Positive: Alert, Cooperative, No Acute Distress Eye Exam: Positive: PERRLA, Conjunctiva & lids normal, Sclera icteric ENT Exam: Positive: Atraumatic, Pharynx Normal, Tongue Midline Neck Exam: Positive: Supple, JVD Chest Exam: Positive: Clear to auscultation, Normal air movement Heart Exam: Positive: Tachycardic, Regular Rhythm, Normal S1, Normal S2 Telemetry: Positive: Sinus, Tachycardia Abdomen Exam: Positive: Normal bowel sounds, Soft, Tenderness (to palpation periumbilical) Extremity Exam: Positive: Edema (trace, + PP) Skin Exam: Positive: Other skin issue (extra dry peeling skin bilateral lower legs and feet; feet cool to touch) Neuro Exam: Positive: Normal Speech, Normal Tone, Cranial Nerves 3-12 NL Psych Exam: Positive: Mental status NL, Oriented x 3, Other (anxious) Assessment /Plan Problems (1) Enteropathogenic Escherichia coli infection Status: Acute Problem Text: D2/3 cipro BID (2) GI bleed Status: Acute Response to Treatment: Progressing Discussed With: Patient, Family with Pt Consent Problem Specific Plan: Monitor Clinically, Repeat Labs Problem Text: acute on chronic, favor acute GE (4D prior low grade fever, intermittent diarrhea, increased burping; on DOA NBNB vomitus x 3 and black diarrhea) 10/18 UGISBFT P (tc EGD/colon repeat by W, +/- outpx capsule) 10/17/2018: planned capsule endoscopy 10/18. Change to Pantoprazole 40 mg IV q 12hrs. DC tele. Add on probiotic. 10/16 7.4-tx 1u, SLIV, advance to clears, + sulcraf, check GI panel-ETCE; therefore, cipro 3D 10/15/18 6.1 sp 2u PRBCs 04/2018 9.6, 92 06/2016 hgb 13.4 10/16 TTG, H pylori Ab P 10/15 +HO 10/15 5%/meghann 8/CHr 22/RC 2 10/15 B12 P 10/15 CT AP NAD 05/2017 EGD/colon desc/sig/rectal losis-W (3) Hypertension Problem Text: Stable on HD lsin 40, tor 10, amlo 2.5 (4) Anemia, iron deficiency Status: Chronic Problem Text: as per GI bleed 10/17 + Fe sucrose 100 IV QD x 5D (5) Diastolic congestive heart failure Status: Acute Response to Treatment: Stable Problem Text: Euvolemic on current regimen 1. Moderate focal wall thickening and focal calcific deposits of a 3-cusp aortic valve. Moderate aortic valve sclerosis. No aortic stenosis or regurgitation. 2. Moderate mitral annular calcification. No mitral stenosis or regurgitation. 3. Mild concentric left ventricle hypertrophy. Normal regional LV wall motion and wall thickening. Normal LV systolic function. Left ventricular ejection fraction of 65% by visual estimate. Grade 1 LV diastolic dysfunction. 4. Otherwise normal appearing echocardiogram Doppler findings. Plan/VTE VTE Prophylaxis Ordered?: No VTE Exclusion Mechanical Proph: Ruddy Lower Ex DVT VTE Exclusion Pharmacological: Hemorrhage Plan IVF: Continue Diet: Make NPO Activity: Continue Current Medications: Replete Electrolytes IV Diagnostics: Check Labs, Repeat Labs in AM VS, I&O, 24H, Fishbone Vital Signs/I&O Vital Signs Date Time Temp Pulse Resp B/P (MAP) Pulse Ox O2 Delivery O2 Flow Rate FiO2 10/17/18 09:23 138/64 10/17/18 09:23 80 10/17/18 08:00 98.2 20 97 10/15/18 23:55 Room Air I&O- Last 24 Hours up to 6 AM 10/17/18 06:00 Intake Total 1268 ml Output Total 3800 ml Balance -2532 ml Laboratory Data 24H LABS Laboratory Tests 2 10/17/18 05:29: Nucleated Red Blood Cells % (auto) 0.0, Anion Gap 8, Glomerular Filtration Rate > 60.0, Blood Urea Nitrogen 22#H, Creatinine 0.91, Sodium Level 149H, Potassium Level 3.2#L, Chloride Level 114H, Carbon Dioxide Level 27, Calcium Level 8.3L, Aspartate Amino Transf (AST/SGOT) 10, Alanine Aminotransferase (ALT/SGPT) 13, Alkaline Phosphatase 71, Total Bilirubin 0.5#, Total Protein 5.8L, Albumin 3.2, Albumin/Globulin Ratio 1.23 CBC/BMP Laboratory Tests 10/16/18 12:07 10/16/18 17:52 10/17/18 00:47 10/17/18 05:29 Red Blood Count 3.16 L, Mean Corpuscular Volume 80.4, Mean Corpuscular Hemoglobin 25.3 L, Mean Corpuscular Hemoglobin Concent 31.5 L, Red Cell Distribution Width 14.7 H, Calcium Level 8.3 L, Aspartate Amino Transf (AST/SGOT) 10, Alanine Aminotransferase (ALT/SGPT) 13, Alkaline Phosphatase 71, Total Bilirubin 0.5 #, Total Protein 5.8 L, Albumin 3.2 Microbiology Microbiology 10/16/18 Stool Occult Blood (PABLO) - Final, Complete 10/16/18 Gastrointestinal Tract Panel (PCR) - Final, Complete Enteropathogenic E.coli Loren Alas Oct 17, 2018 10:27 Massimo Mayen M.D. Oct 17, 2018 16:49
[2018-10-17] MEDS: LACTOBACILLUS ACIDOPHILUS CAP (BACID) PO SCH ×2 (12:14→17:46)
--- NOTE | 2018-10-17 12:53 | ECHO ---
DATE OF PROCEDURE: 10/16/2018 REFERRING PHYSICIAN: Dr. Massimo Mayen INDICATION: Cardiac murmur, unspecified. HEIGHT: 62 inches. WEIGHT: 210 pounds. 2D MEASUREMENTS: Aortic root: 3.1 cm Left atrium: 3.2 cm Ventricular septum: 1.23 cm Posterior wall: 1.31 cm Left ventricle diastole: 4.6 cm Left ventricle systole: 2.9 cm Right ventricle 3.8 cm Inferior vena cava: 1.8 cm DOPPLER MEASUREMENTS: Aortic valve velocity: 214 cm/s LVOT velocity: 137 cm/s LVOT VTI: 28.0 cm Mitral E velocity: 86.3 cm/s Mitral A velocity: 108 cm/s Mitral deceleration time: 257 ms Very mild tricuspid regurgitation. Estimated right ventricle systolic pressure: 32 mmHg assuming a right atrial pressure of 5 mmHg. No aortic stenosis. No aortic regurgitation. No mitral regurgitation. No pulmonic regurgitation. MITRAL ANNULAR TISSUE DOPPLER: E prime septal: 6.5 cm/s E prime lateral: 6.5 cm/s DESCRIPTION: Rhythm was sinus, image quality was fair. No pericardial effusion. This was a 2D, M-mode, color flow Doppler and pulse wave Doppler examination and included mitral annular tissue Doppler. CONCLUSIONS: 1. Moderate focal wall thickening and focal calcific deposits of a 3-cusp aortic valve. Moderate aortic valve sclerosis. No aortic stenosis or regurgitation. 2. Moderate mitral annular calcification. No mitral stenosis or regurgitation. 3. Mild concentric left ventricle hypertrophy. Normal regional LV wall motion and wall thickening. Normal LV systolic function. Left ventricular ejection fraction of 65% by visual estimate. Grade 1 LV diastolic dysfunction. 4. Otherwise normal appearing echocardiogram Doppler findings.
[2018-10-17 13:06] LABS: HEMATOCRIT 27.7 % (36.0-47.0)
[2018-10-17 14:55] VITALS: BP 158/80
[2018-10-17] MEDS: PANTOPRAZOLE 40MG INJ (PROTONIX) (C9113) IV SCH (17:46)
[2018-10-17 18:00] VITALS: BP 155/78
[2018-10-17] MEDS: IRON SUCROSE 200 MG in NS 100 ML OVER 1 HR IV SCH (18:48)
[2018-10-17 22:00] VITALS: BP 147/68
[2018-10-18] MEDS: SUCRALFATE SUSP 1GM/10ML UD PO SCH ×5 (00:06→23:33)
[2018-10-18 02:00] VITALS: BP 147/67
[2018-10-18] MEDS: CIPROFLOXACIN 500 MG TAB PO SCH ×2 (05:23→17:34)
[2018-10-18 06:00] VITALS: BP 149/69
[2018-10-18 06:13] LABS: BASO % 0.5 % (0.0-1.0); EOS # 0.3 10^3/uL (0.0-0.5); EOS % 4.6 % (0.0-3.0); HEMOGLOBIN 8.3 g/dl (12.0-15.5); LYMPH # 0.9 10^3/uL (1.5-5.0); LYMPH % 14.9 % (24.0-44.0); MEAN CORPUSCULAR HEMOGLOBIN 26.4 pg (27.0-33.0); MEAN CORPUSCULAR HGB CONC 31.9 g/dl (32.0-36.5); MEAN CORPUSCULAR VOLUME 82.8 fl (80.0-96.0); MONO # 0.6 10^3/uL (0.0-0.8); MONO % 9.4 % (0.0-5.0); NEUTROPHILS # 4.1 10^3/uL (1.5-8.5); NEUTROPHILS % 70.3 % (36.0-66.0); PLATELET COUNT, AUTOMATED 182 10^3/uL (150-450); RED BLOOD COUNT 3.14 10^6/uL (4.00-5.40); WHITE BLOOD COUNT 5.8 10^3/uL (4.0-10.0)
[2018-10-18 06:32] LABS: ALBUMIN 3.2 GM/DL (3.2-5.2); ALT/SGPT 13 U/L (12-78); BILIRUBIN,TOTAL 0.3 MG/DL (0.2-1.0); BLOOD UREA NITROGEN 12 MG/DL (7-18); CALCIUM LEVEL 8.2 MG/DL (8.8-10.2); CARBON DIOXIDE LEVEL 29 MEQ/L (21-32); CHLORIDE LEVEL 114 MEQ/L (98-107); CREATININE FOR GFR 0.85 MG/DL (0.55-1.30); GLOMERULAR FILTRATION RATE > 60.0 (>39); GLUCOSE, FASTING 101 MG/DL (70-100); POTASSIUM SERUM 3.3 MEQ/L (3.5-5.1); SODIUM LEVEL 147 MEQ/L (136-145); TOTAL PROTEIN 5.8 GM/DL (6.4-8.2)
[2018-10-18] MEDS: PANTOPRAZOLE 40MG INJ (PROTONIX) (C9113) IV SCH ×2 (06:34→17:34)
[2018-10-18] MEDS ORDERED: E-Z-PAQUE 96% w/w SUSP 176GM BTL As Ordered ONE (08:33)
[2018-10-18] MEDS ORDERED: E-Z-HD 98% w/w 340GM SUSP BTL As Ordered ONE (08:33)
[2018-10-18] MEDS ORDERED: E-Z-GAS II EFFERVESCENT PACKET (SODIUM BICARB./CITRIC ACID/SIMETHICONE) As Ordered ONE (08:33)
[2018-10-18] MEDS ORDERED: IRON SUCROSE 100MG 5ML VIAL (J1756 PER 1MG) IV SCH (09:00)
[2018-10-18 09:36] LABS: FOLATE 20.1 NG/ML (>5.4)
[2018-10-18] MEDS: LISINOPRIL 20 MG TAB PO SCH (11:54)
[2018-10-18] MEDS: LACTOBACILLUS ACIDOPHILUS CAP (BACID) PO SCH ×3 (11:54→17:34)
[2018-10-18] MEDS: ATORVASTATIN 10 MG TAB PO SCH (11:54)
[2018-10-18] MEDS: VITAMIN D 1,000 INTERNATIONAL UNITS TABLET PO SCH (11:55)
[2018-10-18] MEDS: OCUVITE 1 TAB PO SCH (11:55)
[2018-10-18] MEDS: TORSEMIDE 10 MG TABLET PO SCH (11:55)
[2018-10-18 14:00] VITALS: BP 153/75
--- NOTE | 2018-10-18 16:58 | REP ---
UPPER GI AIR CONTRAST AND SMALL BOWEL FOLLOW THROUGH The procedure was performed under the direct supervision of Dr. Carpenter. The images were reviewed with Dr. Carpenter The eyewear manufacturing tech film shows no organomegaly or pathological masses. The intestinal gas pattern is non-specific. There are surgical clips noted in the right upper quadrant. Liquid barium and gas producing crystals were given in the erect position as well as liquid barium in the prone oblique position in order to perform a double contrast upper GI examination. Additionally liquid barium was given at the end of the examination in order to perform a small bowel follow through. The oral and pharyngeal stages of deglutition are unremarkable. Esophageal transport is prompt and efficient and there is no esophagitis, stricture or mucosal ring. There is a large fixed hiatal hernia. There is gastroesophageal reflux demonstrated to the level of the thoracic inlet. Within the stomach there are suspected multiple sub centimeter polyps. Recommend endoscopy for further evaluation. The stomach is otherwise unremarkable. The duodenal mosher are normally aligned. The mucosal folds are smooth and regular. There is no duodenitis pancreatitis peptic ulcer disease or neoplasm. The visualized portion of the proximal small bowel appears normal in course and caliber. The barium column was followed through the small bowel to the level of the terminal ileum. Small bowel transit time is approximately 60 minutes . During fluoroscopy gentle palpation shows all loops are freely movable and pliable. There are no fixed or angulated loops. The small bowel mucosal pattern is normal in course and caliber. There is no transition to suggest a partial small-bowel obstruction. Spot filming of the terminal ileum shows it to be unremarkable. Impression: 1. There is a large fixed hiatal hernia. There is gastroesophageal reflux demonstrated to the level of the thoracic inlet. 2. There are suspected multiple sub centimeter polyps within the stomach. Recommend endoscopy for further evaluation. 2.2 minutes of fluoro time was utilized for this procedure. Reviewed by SONIA Lizarraga 10/18/2018 04:48 P Electronically Signed by Kaushik Carpenter MD 10/18/2018 04:48 P
[2018-10-18] MEDS: IRON SUCROSE 200 MG in NS 100 ML OVER 1 HR IV SCH (18:38)
--- NOTE | 2018-10-18 20:07 | IPNPDOC ---
Subjective Date Seen The patient was seen on 10/18/18. Subjective Chief Complaint/HPI feels "great", wants to eat, no abdominal pain/diarrhea Constitutional: Denies: Chills, Fever Eyes: Denies: Pain ENT: Denies: Head Aches Skin: Denies: Rash, Lesions Pulmonary: Denies: Dyspnea, Cough Cardiovascular: Denies: Chest Pain Gastrointestinal: Denies: Nausea, Vomiting Genitourinary: Denies: Dysuria Objective Physical Examination General Exam: Positive: Alert, Cooperative, No Acute Distress Eye Exam: Positive: PERRLA, Conjunctiva & lids normal, Sclera icteric ENT Exam: Positive: Atraumatic, Pharynx Normal, Tongue Midline Neck Exam: Positive: Supple, JVD Chest Exam: Positive: Clear to auscultation, Normal air movement Heart Exam: Positive: Tachycardic, Regular Rhythm, Normal S1, Normal S2 Telemetry: Positive: Sinus, Tachycardia Abdomen Exam: Positive: Normal bowel sounds, Soft, Tenderness (to palpation periumbilical) Extremity Exam: Positive: Edema (trace, + PP) Skin Exam: Positive: Other skin issue (extra dry peeling skin bilateral lower legs and feet; feet cool to touch) Neuro Exam: Positive: Normal Speech, Normal Tone, Cranial Nerves 3-12 NL Psych Exam: Positive: Mental status NL, Oriented x 3, Other (anxious) Assessment /Plan Problems (1) GI bleed Status: Acute Response to Treatment: Progressing Discussed With: Patient, Family with Pt Consent Problem Specific Plan: Monitor Clinically, Repeat Labs Problem Text: acute on chronic, favor acute GE (4D prior low grade fever, intermittent diarrhea, increased burping; on DOA NBNB vomitus x 3 and black diarrhea) 10/18 UGISBFT: 1. There is a large fixed hiatal hernia. There is gastroesophageal reflux demonstrated to the level of the thoracic inlet. 2. There are suspected multiple sub centimeter polyps within the stomach. Recommend endoscopy for further evaluation. (04/2001 EGD Kailash: A - Small bowel, biopsy: Small intestinal mucosa with preserved villous architecture. -2. B - Stomach, gastric body polyp, biopsy: Hyperplastic fundal polyps. -2. C - Stomach, antrum, biopsy: Mild nonspecific chronic inflammation. No acute inflammation or H. pylori identified on H&E stains. -2.) W, +/- outpx capsule 10/18 8.3 (9.0)-given UGI results and low (albeit stable) hgb, favor leroy Gudelia in AM re repeat EGD/colon +/- capsule-would favor to do as outpx 10/16 7.4-tx 1u, SLIV, advance to clears, + sulcraf, check GI panel-ETCE; therefore, cipro 3D 10/15/18 6.1 sp 2u PRBCs 04/2018 9.6, 92 06/2016 hgb 13.4 10/16 TTG, H pylori Ab P 10/15 +HO 10/15 5%/meghann 8/CHr 22/RC 2 10/15 B12 P 10/15 CT AP NAD 05/2017 EGD/colon desc/sig/rectal losis-W (2) Enteropathogenic Escherichia coli infection Status: Acute Problem Text: / cipro BID (3) Hypertension Problem Text: Stable on HD lsin 40, tor 10, amlo 2.5 (4) Anemia, iron deficiency Status: Chronic Problem Text: as per GI bleed 10/17 + Fe sucrose 200 IV QD x 3D (5) Diastolic congestive heart failure Status: Acute Response to Treatment: Stable Problem Text: Euvolemic on current regimen 1. Moderate focal wall thickening and focal calcific deposits of a 3-cusp aortic valve. Moderate aortic valve sclerosis. No aortic stenosis or regurgitation. 2. Moderate mitral annular calcification. No mitral stenosis or regurgitation. 3. Mild concentric left ventricle hypertrophy. Normal regional LV wall motion and wall thickening. Normal LV systolic function. Left ventricular ejection fraction of 65% by visual estimate. Grade 1 LV diastolic dysfunction. 4. Otherwise normal appearing echocardiogram Doppler findings. Plan/VTE VTE Prophylaxis Ordered?: No VTE Exclusion Mechanical Proph: Ruddy Lower Ex DVT VTE Exclusion Pharmacological: Hemorrhage Plan IVF: Continue Diet: Make NPO Activity: Continue Current Medications: Replete Electrolytes IV Diagnostics: Check Labs, Repeat Labs in AM VS, I&O, 24H, Fishbone Vital Signs/I&O Vital Signs Date Time Temp Pulse Resp B/P (MAP) Pulse Ox O2 Delivery O2 Flow Rate FiO2 10/18/18 14:00 97.2 70 20 153/75 (101) 97 10/15/18 23:55 Room Air I&O- Last 24 Hours up to 6 AM 10/18/18 06:00 Intake Total 855 ml Output Total 900 ml Balance -45 ml Laboratory Data 24H LABS Laboratory Tests 2 10/18/18 05:32: Immature Granulocyte % (Auto) 0.3, White Blood Count 5.8, Red Blood Count 3.14L, Hemoglobin 8.3L, Hematocrit 26.0L, Mean Corpuscular Volume 82.8, Mean Corpuscular Hemoglobin 26.4L, Mean Corpuscular Hemoglobin Concent 31.9L, Red Cell Distribution Width 15.1H, Platelet Count 182, Neutrophils (%) (Auto) 70.3H, Lymphocytes (%) (Auto) 14.9L, Monocytes (%) (Auto) 9.4H, Eosinophils (%) (Auto) 4.6H, Basophils (%) (Auto) 0.5, Neutrophils # (Auto) 4.1, Lymphocytes # (Auto) 0.9L, Monocytes # (Auto) 0.6, Eosinophils # (Auto) 0.3, Basophils # (Auto) 0.0, Nucleated Red Blood Cells % (auto) 0.0, Anion Gap 4L, Glomerular Filtration Rate > 60.0, Blood Urea Nitrogen 12, Creatinine 0.85, Sodium Level 147H, Potassium Level 3.3L, Chloride Level 114H, Carbon Dioxide Level 29, Calcium Level 8.2L, Aspartate Amino Transf (AST/SGOT) 12, Alanine Aminotransferase (ALT/SGPT) 13, Alkaline Phosphatase 76, Total Bilirubin 0.3, Total Protein 5.8L, Albumin 3.2, Albumin/Globulin Ratio 1.23 CBC/BMP Laboratory Tests 10/18/18 05:32 Red Blood Count 3.14 L, Mean Corpuscular Volume 82.8, Mean Corpuscular Hemoglobin 26.4 L, Mean Corpuscular Hemoglobin Concent 31.9 L, Red Cell Distribution Width 15.1 H, Neutrophils (%) (Auto) 70.3 H, Lymphocytes (%) (Auto) 14.9 L, Monocytes (%) (Auto) 9.4 H, Eosinophils (%) (Auto) 4.6 H, Basophils (%) (Auto) 0.5, Neutrophils # (Auto) 4.1, Lymphocytes # (Auto) 0.9 L, Monocytes # (Auto) 0.6, Eosinophils # (Auto) 0.3, Basophils # (Auto) 0.0, Calcium Level 8.2 L, Aspartate Amino Transf (AST/SGOT) 12, Alanine Aminotransferase (ALT/SGPT) 13, Alkaline Phosphatase 76, Total Bilirubin 0.3, Total Protein 5.8 L, Albumin 3.2 Microbiology Microbiology 10/16/18 Stool Occult Blood (PABLO) - Final, Complete 10/16/18 Gastrointestinal Tract Panel (PCR) - Final, Complete Enteropathogenic E.coli Massimo Mayen M.D. Oct 18, 2018 20:07
[2018-10-18] MEDS ORDERED: POTASSIUM CHLORIDE 10 MEQ SR TABLET PO ONE (21:00)
[2018-10-18 22:00] VITALS: BP 128/72
[2018-10-19 02:00] VITALS: BP 123/75
[2018-10-19] MEDS: CIPROFLOXACIN 500 MG TAB PO SCH (05:25)
[2018-10-19 06:00] VITALS: BP 113/70
[2018-10-19 06:02] LABS: BASO % 0.8 % (0.0-1.0); EOS # 0.2 10^3/uL (0.0-0.5); EOS % 4.8 % (0.0-3.0); HEMATOCRIT 25.3 % (36.0-47.0); LYMPH # 0.8 10^3/uL (1.5-5.0); LYMPH % 14.9 % (24.0-44.0); MEAN CORPUSCULAR HEMOGLOBIN 25.7 pg (27.0-33.0); MEAN CORPUSCULAR HGB CONC 31.6 g/dl (32.0-36.5); MEAN CORPUSCULAR VOLUME 81.4 fl (80.0-96.0); MONO # 0.4 10^3/uL (0.0-0.8); MONO % 8.1 % (0.0-5.0); NEUTROPHILS # 3.6 10^3/uL (1.5-8.5); PLATELET COUNT, AUTOMATED 196 10^3/uL (150-450); RED BLOOD COUNT 3.11 10^6/uL (4.00-5.40); WHITE BLOOD COUNT 5.1 10^3/uL (4.0-10.0)
[2018-10-19 06:19] LABS: ALBUMIN 3.2 GM/DL (3.2-5.2); ALT/SGPT 13 U/L (12-78); BILIRUBIN,TOTAL 0.3 MG/DL (0.2-1.0); BLOOD UREA NITROGEN 8 MG/DL (7-18); CALCIUM LEVEL 8.3 MG/DL (8.8-10.2); CARBON DIOXIDE LEVEL 29 MEQ/L (21-32); CHLORIDE LEVEL 110 MEQ/L (98-107); CREATININE FOR GFR 0.72 MG/DL (0.55-1.30); GLOMERULAR FILTRATION RATE > 60.0 (>39); GLUCOSE, FASTING 95 MG/DL (70-100); POTASSIUM SERUM 3.3 MEQ/L (3.5-5.1); SODIUM LEVEL 145 MEQ/L (136-145); TOTAL PROTEIN 5.9 GM/DL (6.4-8.2)
[2018-10-19] MEDS: SUCRALFATE SUSP 1GM/10ML UD PO SCH (06:26)
[2018-10-19] MEDS ORDERED: PANTOPRAZOLE 40MG TAB (PROTONIX) PO SCH (09:00)
[2018-10-19] MEDS: VITAMIN D 1,000 INTERNATIONAL UNITS TABLET PO SCH (09:34)
[2018-10-19] MEDS: TORSEMIDE 10 MG TABLET PO SCH (09:35)
[2018-10-19] MEDS: ATORVASTATIN 10 MG TAB PO SCH (09:35)
[2018-10-19] MEDS: LACTOBACILLUS ACIDOPHILUS CAP (BACID) PO SCH (09:35)
[2018-10-19 09:36] VITALS: BP 116/58
[2018-10-19] MEDS: LISINOPRIL 20 MG TAB PO SCH (09:36)
[2018-10-19] MEDS: OCUVITE 1 TAB PO SCH (09:36)
[2018-10-19 10:00] VITALS: BP 153/88
[2018-10-19] MEDS ORDERED: RISATAB3 PO (10:12)
[2018-10-19] MEDS ORDERED: SUCR10SS PO (10:12)
[2018-10-19 15:18] LABS: TISSUE TRANSGLUTAMINASE IgA <2 U/mL (0-3)
--- NOTE | 2018-10-20 14:25 | DSES ---
DATE OF ADMISSION: 10/16/2018 DATE OF DISCHARGE: 10/19/2018 HISTORY OF PRESENT ILLNESS: A 73-year-old female who presented to the emergency department (ED) at [facility] with complaints of shortness of breath with ambulation, fatigue, weakness, dry mouth, lightheadedness, along with some diarrhea. Patient had also experienced nausea with vomiting. Workup in the ED proved positive for significant anemia with a hemoglobin and hematocrit of 6.6 and 22.1. Patient was subsequently transfused 2 units of packed red cells and admitted under the family medicine service. HOSPITAL COURSE: Patient is status post CT abdomen and pelvis as well as an upper gastrointestinal (GI) with small-bowel follow-through. CT was negative. Upper GI with small-bowel follow-through completed on October 18. Patient was noted to have a large fixed hiatal hernia, significant gastroesophageal reflux demonstrated to the level of the thoracic inlet, and multiple subcentimeter polyps within the stomach. Patient's hemoglobin has remained stable throughout hospitalization after her transfusion. Her electrolytes have been replaced accordingly. She has had no further bloody stools, and her bowels have become formed. Her diet was advanced yesterday, and she has tolerated oral well and is anxious to return home, as she feels she is at her baseline. Patient did test positive to enteropathogenic Escherichia (E) coli and was placed on ciprofloxacin for 3 days, which she tolerated well. PROCEDURES: Patient received two transfusions of Venofer. PHYSICAL EXAMINATION: Today, vital signs are stable. She is afebrile. HEENT: Neck is supple without lymphadenopathy or jugular venous distention (JVD). CARDIOVASCULAR: Heart rate and rhythm are regular. PULMONARY: Lungs are clear. ABDOMEN: Soft and nontender. Bilateral lower extremities without any edema. NEUROLOGIC: Patient is alert and oriented times three. ASSESSMENT: 1. Gastrointestinal (GI) bleed. 2. Gastroesophageal reflux disease (GERD) to the level of thoracic inlet. 3. Polyps located at the stomach lining. 4. Hypertension. 5. Enteropathogenic Escherichia (E) coli. PLAN: Patient will be discharged home. Diet is as tolerated. Activity is as tolerated. She will followup with primary care physician (PCP) within the next 5 days. She will followup with Dr. Galeas, who is her customer success intern, within the next 2 weeks for consideration of upper endoscopy. Prescriptions are as follows: - probiotic with meals three times a day - Carafate 1 gram by mouth every 6 hours - Tylenol 650 mg by mouth every 12 hours as needed for pain - amlodipine 2.5 mg by mouth daily - atorvastatin 10 mg daily - calcium carbonate 500 mg by mouth daily - Refresh Eyedrops, one drop both eyes as needed for dry eyes - vitamin D3 at 2000 international units by mouth daily - Colace 100 mg by mouth daily as needed for constipation - Euflexxa 20 mg injection weekly - lidocaine one application topically three times a day as needed for pain - lisinopril 20 mg tablets two by mouth daily - lutein eyedrops 20 mg daily - omeprazole 40 mg by mouth daily - torsemide 10 mg by mouth daily - Ocuvite vitamin one capsule by mouth daily Patient is discharged in stable and satisfactory condition with no further questions at time of discharge.
== END 2018-10-19 12:38 | disposition home or self-care (01) | DRG 378 ==
LOC: M ED 21:44 → M ED INP 10-16 00:30 → M PCU 10-16 01:45 → M MSPAV 10-17 14:54
PROVIDERS: ADMIT Internal Medicine Nephrology; ATTEND Family Medicine
PROC: 30233N1 Transfusion of Nonautologous Red Blood Cells into Peripheral Vein, Percutaneous Approach (ICD-10-PCS; principal; 2018-10-16)
DX: K92.2 Gastrointestinal hemorrhage, unspecified (principal); I50.32 Chronic diastolic (congestive) heart failure; A04.0 Enteropathogenic Escherichia coli infection; K21.9 Gastro-esophageal reflux disease without esophagitis; I11.0 Hypertensive heart disease with heart failure; Z79.899 Other long term (current) drug therapy; E78.5 Hyperlipidemia, unspecified; D50.9 Iron deficiency anemia, unspecified; M19.90 Unspecified osteoarthritis, unspecified site; M81.0 Age-related osteoporosis without current pathological fracture; I83.90 Asymptomatic varicose veins of unspecified lower extremity; Z88.0 Allergy status to penicillin; H35.30 Unspecified macular degeneration; K44.9 Diaphragmatic hernia without obstruction or gangrene; K31.7 Polyp of stomach and duodenum

== ENCOUNTER → 2018-10-25 | Outpatient (REF) | payer MEDICARE ==
[~2018-10-25] MED LIST changes: +ACET-897 PO; +ASPE16CR TOP; +CALC500T68 PO; +D200CAP3 PO; +EUFL10IN INJ; +FERR325T18 PO; +LUTE2000 PO; -OMEP40CA2 PO; +OMEP40CA97 PO; +PANT40TA3 PO; +RISATAB3 PO; +SUCR10SS PO; +VITA200010 PO
[2018-10-25 13:16] LABS: HEMATOCRIT 33.3 % (36.0-47.0); HEMOGLOBIN 10.4 g/dl (12.0-15.5); MEAN CORPUSCULAR HEMOGLOBIN 26.5 pg (27.0-33.0); MEAN CORPUSCULAR HGB CONC 31.2 g/dl (32.0-36.5); MEAN CORPUSCULAR VOLUME 84.7 fl (80.0-96.0); PLATELET COUNT, AUTOMATED 297 10^3/uL (150-450); RED BLOOD COUNT 3.93 10^6/uL (4.00-5.40); WHITE BLOOD COUNT 5.2 10^3/uL (4.0-10.0)
[2018-10-25 13:44] LABS: ALBUMIN 4.1 GM/DL (3.2-5.2); ALT/SGPT 18 U/L (12-78); BILIRUBIN,TOTAL 0.4 MG/DL (0.2-1.0); BLOOD UREA NITROGEN 10 MG/DL (7-18); CALCIUM LEVEL 9.4 MG/DL (8.8-10.2); CARBON DIOXIDE LEVEL 31 MEQ/L (21-32); CHLORIDE LEVEL 103 MEQ/L (98-107); CREATININE FOR GFR 0.87 MG/DL (0.55-1.30); FERRITIN 136 NG/ML (8-252); GLOMERULAR FILTRATION RATE > 60.0 (>39); GLUCOSE, FASTING 101 MG/DL (70-100); IRON (FE) 43 UG/DL (50-170); PERCENT SATURATION 10.3 % (13.2-45.0); POTASSIUM SERUM 3.5 MEQ/L (3.5-5.1); SODIUM LEVEL 145 MEQ/L (136-145); TOTAL IRON BINDING CAPACITY 418 UG/DL (250-450); TOTAL PROTEIN 7.1 GM/DL (6.4-8.2)
== END ==
LOC: M SFHCADAM 11:06
PROVIDERS: ATTEND Family Medicine
DX: D50.8 Other iron deficiency anemias (principal); I10 Essential (primary) hypertension

== ENCOUNTER 2018-11-30 06:24 | Day surgery (SDC) | payer MEDICARE ==
[~2018-11-30] VITALS: Ht 158.8 cm; Wt 91.2 kg
[~2018-11-30 06:24] MED LIST changes: -FERR325T18 PO; -LUTE2000 PO; +NS 1,000 ML IV ONE; -PANT40TA3 PO; -VITA200010 PO
[2018-11-30] MEDS ORDERED: PROPOFOL 500 MG/50 ML VIAL As Ordered ONE (07:33)
[2018-11-30] MEDS ORDERED: LIDOCAINE 2% INJ 100 MG/5 ML SDV (FOR ANES.) As Ordered ONE (07:33)
--- NOTE | 2018-11-30 07:51 | ROOR ---
Patient Name: Stephanie Thompson Procedure Date: 11/30/2018 7:32 AM Date of : 1945 Age: 73 Room: [facility] Gender: Female Note Status: Finalized Procedure: Upper Endoscopy + Biopsies Indications: Iron deficiency anemia, Unexplained iron deficiency anemia Providers: Quincy Galeas MD Referring MD: Jay Chou MD Requesting Provider: Medicines: Monitored Anesthesia Care Complications: No immediate complications. Procedure: Pre-Anesthesia Assessment: - The heart rate, respiratory rate, oxygen saturations, blood pressure, adequacy of pulmonary ventilation, and response to care were monitored throughout the procedure. The Endoscope was introduced through the mouth, and advanced to the second part of duodenum. The upper GI endoscopy was accomplished without difficulty. The patient tolerated the procedure well. Findings: The Z-line was variable and was found 30 cm from the incisors. Multiple biopsies were obtained with cold forceps for evaluation to rule out Arroyo's Esophagus randomly at the gastroesophageal junction. A small hiatal hernia was present. Multiple small pedunculated and sessile polyps with no bleeding and no stigmata of recent bleeding were found on the greater curvature of the stomach. Biopsies were taken with a cold forceps for Helicobacter pylori testing. The exam of the duodenum was otherwise normal. Biopsies for histology were taken with a cold forceps in the first portion of the duodenum for evaluation of celiac disease. The exam was otherwise without abnormality. Impression: - Z-line variable, 30 cm from the incisors. - Small hiatal hernia. - Multiple gastric polyps. Resected and retrieved. Biopsied. - The examination was otherwise normal. - Multiple biopsies were obtained at the gastroesophageal junction. - Biopsies were taken with a cold forceps for evaluation of celiac disease. - The examination was otherwise normal. Recommendation: - Patient has a contact number available for emergencies. The signs and symptoms of potential delayed complications were discussed with the patient. Return to normal activities tomorrow. Written discharge instructions were provided to the patient. - High fiber diet. - Discharge patient to home. - Continue present medications. - Await pathology results. - Telephone GI clinic for pathology results in 1 week. - Return to referring physician. - The findings and recommendations were discussed with the patient's family. Quincy Galeas MD Quincy Galeas MD 11/30/2018 7:50:26 AM Electronically signed by Quincy Galeas MD Number of Addenda: 0 Note Initiated On: 11/30/2018 7:32 AM Estimated Blood Loss: Estimated blood loss: none.
--- NOTE | 2018-11-30 08:08 | ROOR ---
Patient Name: Stephanie Thompson Procedure Date: 11/30/2018 7:33 AM Date of : 1945 Age: 73 Room: [facility] Gender: Female Note Status: Finalized Procedure: Total Colonoscopy to Cecum Indications: Iron deficiency anemia, Unexplained iron deficiency anemia Providers: Quincy Galeas MD Referring MD: Jay Chou MD Requesting Provider: Medicines: Monitored Anesthesia Care Complications: No immediate complications. Procedure: Pre-Anesthesia Assessment: - The heart rate, respiratory rate, oxygen saturations, blood pressure, adequacy of pulmonary ventilation, and response to care were monitored throughout the procedure. The Colonoscope was introduced through the anus and advanced to the cecum, identified by appendiceal orifice and ileocecal valve. The colonoscopy was performed without difficulty. The patient tolerated the procedure well. The quality of the bowel preparation was excellent. Findings: The perianal and digital rectal examinations were normal. Non-bleeding internal hemorrhoids were found during retroflexion. The hemorrhoids were small and Grade I (internal hemorrhoids that do not prolapse). No other significant abnormalities were identified in a careful examination of the remainder of the colon. The exam was otherwise without abnormality on direct and retroflexion views. Impression: - Non-bleeding internal hemorrhoids. - The examination was otherwise normal on direct and retroflexion views. - No specimens collected. - The exam was otherwise normal to the cecum. Recommendation: - Patient has a contact number available for emergencies. The signs and symptoms of potential delayed complications were discussed with the patient. Return to normal activities tomorrow. Written discharge instructions were provided to the patient. - High fiber diet. - Discharge patient to home. - Continue present medications. - Repeat colonoscopy for symptoms only. - Return to referring physician. - The findings and recommendations were discussed with the patient's family. Quincy Galeas MD Quincy Galeas MD 11/30/2018 8:07:52 AM Electronically signed by Quincy Galeas MD Number of Addenda: 0 Note Initiated On: 11/30/2018 7:33 AM Estimated Blood Loss: Estimated blood loss: none.
[2018-11-30] MEDS ORDERED: fentaNYL 100 MCG/2 ML INJECTION (J3010) As Ordered ONE (08:17)
[2018-11-30 08:25] VITALS: BP 177/83
== END 2018-11-30 08:37 | disposition home or self-care (01) ==
LOC: M OPP 06:24
PROVIDERS: ATTEND Internal Medicine Gastroenterology
DX: K64.0 First degree hemorrhoids (principal); K22.8 Other specified diseases of esophagus; K44.9 Diaphragmatic hernia without obstruction or gangrene; K31.9 Disease of stomach and duodenum, unspecified; D50.9 Iron deficiency anemia, unspecified; I10 Essential (primary) hypertension; Z79.899 Other long term (current) drug therapy; Z88.0 Allergy status to penicillin; Z88.8 Allergy status to other drugs, medicaments and biological substances; Z91.048 Other nonmedicinal substance allergy status; Z87.891 Personal history of nicotine dependence; Z84.89 Family history of other specified conditions
CPT/HCPCS: 43239; 45378; 88305; J3010

== ENCOUNTER → 2019-01-09 | Outpatient (REF) | payer MEDICARE ==
[~2019-01-09] MED LIST changes: -NS 1,000 ML IV ONE
[2019-01-09 13:02] LABS: HEMATOCRIT 31.3 % (36.0-47.0); HEMOGLOBIN 9.4 g/dl (12.0-15.5); MEAN CORPUSCULAR HEMOGLOBIN 25.5 pg (27.0-33.0); MEAN CORPUSCULAR VOLUME 85.1 fl (80.0-96.0); PLATELET COUNT, AUTOMATED 257 10^3/uL (150-450); RED BLOOD COUNT 3.68 10^6/uL (4.00-5.40); WHITE BLOOD COUNT 3.7 10^3/uL (4.0-10.0)
[2019-01-09 13:27] LABS: CALCIUM LEVEL 9.5 MG/DL (8.8-10.2); CREATININE FOR GFR 1.18 MG/DL (0.55-1.30); GLOMERULAR FILTRATION RATE 47.7 (>39); POTASSIUM SERUM 3.9 MEQ/L (3.5-5.1)
[2019-01-09 14:14] LABS: HEMOGLOBIN A1c 5.6 %
== END ==
LOC: M SFHCADAM 11:13
PROVIDERS: ATTEND Physician Assistant Medical
DX: R55 Syncope and collapse (principal); R73.01 Impaired fasting glucose

== ENCOUNTER 2019-01-26 17:16 | Inpatient (IN) | payer MEDICARE ==
[~2019-01-26] VITALS: Ht 160 cm; Wt 93.4 kg
[2019-01-26] MEDS ORDERED: ONDANSETRON 4MG/2ML VIAL (J2405) IV ONE (18:00)
[2019-01-26] MEDS ORDERED: NS 1,000 ML IV ONE (18:00)
[2019-01-26 19:25] LABS: ALBUMIN 3.6 GM/DL (3.2-5.2); ALT/SGPT 20 U/L (12-78); BILIRUBIN,DIRECT < 0.1 MG/DL (0.0-0.2); BILIRUBIN,TOTAL 0.3 MG/DL (0.2-1.0); BLOOD UREA NITROGEN 54 MG/DL (7-18); CALCIUM LEVEL 8.6 MG/DL (8.8-10.2); CARBON DIOXIDE LEVEL 27 MEQ/L (21-32); CHLORIDE LEVEL 109 MEQ/L (98-107); CK-MB VALUE MASS < 1.0 NG/ML (<3.6); CPK CREATINE PHOSPHOKINASE 56 U/L (26-192); CREATININE FOR GFR 0.92 MG/DL (0.55-1.30); GLOMERULAR FILTRATION RATE > 60.0 (>39); GLUCOSE, FASTING 113 MG/DL (70-100); LIPASE 115 U/L (73-393); MB/CK RELATIVE INDEX 1.79 (< OR =4); POTASSIUM SERUM 4.7 MEQ/L (3.5-5.1); SODIUM LEVEL 144 MEQ/L (136-145); TOTAL PROTEIN 6.5 GM/DL (6.4-8.2); TROPONIN I 0.06 NG/ML (< 0.10)
[2019-01-26 19:58] LABS: BASO % 0.2 % (0.0-1.0); HEMATOCRIT 25.8 % (36.0-47.0); HEMOGLOBIN 7.5 g/dl (12.0-15.5); LYMPH # 0.7 10^3/uL (1.5-5.0); LYMPH % 8.1 % (24.0-44.0); MEAN CORPUSCULAR HGB CONC 29.1 g/dl (32.0-36.5); MEAN CORPUSCULAR VOLUME 89.6 fl (80.0-96.0); MONO # 0.3 10^3/uL (0.0-0.8); MONO % 3.7 % (0.0-5.0); NEUTROPHILS # 7.4 10^3/uL (1.5-8.5); NEUTROPHILS % 87.6 % (36.0-66.0); PLATELET COUNT, AUTOMATED 231 10^3/uL (150-450); RED BLOOD COUNT 2.88 10^6/uL (4.00-5.40); WHITE BLOOD COUNT 8.5 10^3/uL (4.0-10.0)
--- NOTE | 2019-01-26 20:22 | HPEPDOC ---
[facility] Medical History & Physical Date of Admission Jan 26, 2019 Date of Service: Jan 26, 2019 Primary Care Physician: Jay Chou MD Attending Physician: Jay Chou MD History and Physical TIME OF SERVICE: 10:50 PM CHIEF COMPLAINT:, Nausea, vomiting and diarrhea HISTORY OF PRESENT ILLNESS: This is a 73-year-old female last presented on October 16 with complaints of dyspnea, fatigue and lightheadedness. She was found to have a hemoglobin of 6.6 and admitted for management of an acute upper GI bleed GI bleed. During that admission, she received 3 units of PRBCs and [address] of the abdomen and upper GI series with small bowel follow-through was remarkable for a large fixed hiatal hernia, GERD, and multiple's subcentimeter polyps in the stom ach. Today she presented with complaints of nausea, diaphoresis, multiple episodes of dark colored vomitus, and 2 episodes of dark brown loose stools. Per discussion with the RN in the ER, she had one episode of emesis and a BM which are consistent with the patient's reports. She denies having dyspnea, abdominal pain, fevers or chills. REVIEW OF SYSTEMS: 12 point review of systems negative except as listed in HPI PAST MEDICAL/ SURGICAL HISTORY: Grade 1 diastolic CHF / Chronic hypertension. Iron Deficiency DJD GERD History of upper GI bleed / Stomach polyps Osteoporosis. Status post tonsillectomy and adenoidectomy Status post cholecystectomy Status post right eye cataract surgery SOCIAL HISTORY: She is a former smoker. She takes alcohol occasionally FAMILY HISTORY: Diabetes Vascular disease CVA CAD ALLERGIES: Please see below. HOME MEDICATIONS: Please see below. PHYSICAL EXAMINATION: VITAL SIGNS: Please see below. GEN: Obese/ well developed/ NAD INTEGUMENT: not flushed/ not jaundice HEENT: normocephalic / atraumatic / lips acyanotic /mucus membranes moist and pink / she has conjunctival pallor CVS: RRR/systolic murmur/ radial and dorsalis pedis pulses intact LUNGS: lungs are clear to auscultation bilaterally on room air ABDOMEN: there are no masses or lesions / bowel sounds are present / tympanic on percussion, soft & not tender with palpation MSK/EXTREMITIES: range of motion intact in all 4 extremities NEURO: CN 2-12 are grossly intact / speech is not dysarthric PSYCH: alert and oriented to person place and time/ able to understand and follow all commands LABORATORY DATA: See below. ASSESSMENT: Ms. Thompson is a 73-year-old with a history of chronic HTN, chronic diastolic CHF, iron deficiency anemia, stomach polyps, GERD, and osteoporosis who will be ad mitted for management of acute blood loss anemia likely 2/2 upper GI bleed. PLAN: 1. GI Bleed (Upper) She has a history of stomach polyps, iron deficiency anemia and GERD Plan: Admit to PCU/check orthostatics/Zofran for nausea and vomiting/follow-up serial hemoglobin, type and screen reticulocyte count and iron panel/IV PPI / Octreotide drip / ciprofloxacin / f/u stool H pylori /nothing by mouth with IV fluids/hold nonessential oral meds/ GI consult for EGD +/-c-scope 2. Hypertensive Crisis / Chronic Grade 1 diastolic CHF Resolved On arrival, the highest blood pressure was 235/96 Her troponin was 0.06 and the EKG showed normal sinus rhythm with mild ST segment depression The GFR and creatinine within normal limits Plan: resume torsemide / will not resume amlodipine and lisinopril as I am anticipating that her blood pressure will drop if she has additional episodes of bleeding 3.Obesity BMI is 35.9 Discomfort gets care Plan: She can f/u w PCP for the STOP BANG questionnaire& acid wash operator consult DVT prophylaxis with SCDs. Disposition likely home after more than 2 midnight's stay Vital Signs Vital Signs Date Time Temp Pulse Resp B/P (MAP) Pulse Ox O2 Delivery O2 Flow Rate FiO2 01/26/19 18:01 98.6 91 139/65 (89) 99 01/26/19 17:22 17 Room Air Laboratory Data Labs 24H Laboratory Tests 2 01/26/19 17:51: Anion Gap 8, Glomerular Filtration Rate > 60.0, Calcium Level 8.6L, Total Bilirubin 0.3, Direct Bilirubin < 0.1, Aspartate Amino Transf (AST/SGOT) 11, Alanine Aminotransferase (ALT/SGPT) 20, Alkaline Phosphatase 93, Total Creatine Kinase 56, Creatine Kinase MB < 1.0, Creatine Kinase MB Relative Index 1.79, Troponin I 0.06, Total Protein 6.5, Albumin 3.6, Albumin/Globulin Ratio 1.24, Lipase 115 01/26/19 19:42: Immature Granulocyte % (Auto) 0.4, Neutrophils (%) (Auto) 87.6H, Lymphocytes (%) (Auto) 8.1L, Monocytes (%) (Auto) 3.7, Eosinophils (%) (Auto) 0.0, Basophils (%) (Auto) 0.2, Neutrophils # (Auto) 7.4, Lymphocytes # (Auto) 0.7L, Monocytes # (Auto) 0.3, Eosinophils # (Auto) 0.0, Basophils # (Auto) 0.0, Nucleated Red Blood Cells % (auto) 0.0 CBC/BMP Laboratory Tests 01/26/19 17:51 01/26/19 19:42 Home Medications Scheduled Amlodipine Besylate (Norvasc) 2.5 Mg Tab, 2.5 MG PO DAILY Atorvastatin Calcium (Lipitor) 10 Mg Tab, 10 MG PO DAILY Calcium Carbonate (Calcium) 500 Mg Tab.chew, 500 MG PO DAILY Cholecalciferol (Vitamin D3) (Vitamin D3) 2,000 Unit Tablet, 2,000 UNIT PO DAILY L.acidoph/L.bulg/B.bif/S.therm (Venessa-Bid Caplet) 1 Each Tablet, 1 TAB PO WM Lisinopril (Lisinopril) 20 Mg Tab, 40 MG PO DAILY Lutein (Lutein) 20 Mg Capsule, 20 MG PO DAILY Omeprazole (Omeprazole) 40 Mg Cap, 40 MG PO DAILY Torsemide (Torsemide) 10 Mg Tab, 10 MG PO DAILY Vit C/E/Zn/Coppr/Lutein/Zeaxan (Ocuvite Lutein-Zeaxanthin Cap) 1 Cap Cap, 1 CAP PO DAILY Scheduled PRN Acetaminophen (Tylenol Extra Strength) 500 Mg Tablet, 1,000 MG PO Q4H PRN for PAIN Carboxymethylcellulos/Glycerin (Refresh Optive Eye Drops) 1 Jewel Jewel, 1 DROP OU Q6H PRN for DRY EYES Docusate Sodium (Stool Softener) 100 Mg Cap, 100 MG PO DAILY PRN for CONSTIPATION Lidocaine HCl (Aspercreme) 4% Cream..g., 1 APLCT TOP TID PRN for PAIN APPLIES TO KNEES Allergies Coded Allergies: Anesthetics - Kirsten Type- Parabens (Verified Allergy, Severe, MALIGNANT HYPERTHERMIA, 11/22/18) REACTION TO ANESTHETIC GASES; FAMILY MEMBERS HAVE FROM REACTION tetracycline (Verified Allergy, Severe, TONGUE SWELLING, 11/22/18) Penicillins (Verified Allergy, Intermediate, RASH, 11/22/18) TAPE (Verified Allergy, Intermediate, irritation, 11/22/18) A-FIB/CHADSVASC A-FIB History Current/History of A-Fib/PAF?: No Current PO Anticoag Therapy: KARLOS Colmenares MD Jan 26, 2019 20:22
[2019-01-26] MEDS ORDERED: PANTOPRAZOLE 40MG INJ (PROTONIX) (C9113) IV ONE (20:30)
[2019-01-26] MEDS ORDERED: METOCLOPRAMIDE INJ 10MG/2ML VIAL (J2765) IV ONE (20:30)
[2019-01-26] MEDS ORDERED: SODIUM CHLORIDE 0.9% 1000ML IV SCH (20:30)
[2019-01-26] MEDS: NS 1,000 ML IV SCH (20:30)
[2019-01-26] MEDS: CIPROFLOXACIN 400 MG in IV 1 EA IV SCH (21:00)
[2019-01-26] MEDS ORDERED: RISATAB3 PO (21:36)
[2019-01-26] MEDS ORDERED: VITA200010 PO (21:36)
[2019-01-26] MEDS ORDERED: LUTE2000 PO (21:36)
[2019-01-26] MEDS ORDERED: OCTREOTIDE ACETATE 100 MCG/ML VIAL (J2354) IV SCH (22:00)
--- NOTE | 2019-01-26 22:13 | ECGEPIP ---
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
[2019-01-26 22:35] LABS: INR 1.17; PROTHROMBIN TIME 14.6 SECONDS (11.8-14.0)
[2019-01-26 22:36] LABS: PARTIAL THROMBOPLASTIN TIME 26.1 SECONDS (25.0-38.4)
[2019-01-26] MEDS ORDERED: OCTREOTIDE ACETATE 100 MCG/ML VIAL (J2354) IV ONE (22:45)
[2019-01-26] MEDS: ONDANSETRON 4MG/2ML VIAL (J2405) IV PRN (22:49)
[2019-01-26] MEDS ORDERED: OCTREOTIDE ACETATE 1,200 MCG in NS 238.8 ML IV SCH (23:00)
[2019-01-26] MEDS ORDERED: MAGIC MOUTHWASH SUSPENSION BTL SS PRN (23:45)
[2019-01-27] VITALS (10 sets, daily range): BP systolic 125–158; BP diastolic 61–90
[2019-01-27 01:49] LABS: HEMOGLOBIN 6.8 g/dl (12.0-15.5)
[2019-01-27 02:16] LABS: FERRITIN 59 NG/ML (8-252); IRON (FE) 235 UG/DL (50-170); PERCENT SATURATION 70.6 % (13.2-45.0); TOTAL IRON BINDING CAPACITY 333 UG/DL (250-450)
[2019-01-27] MEDS: NS 1,000 ML IV SCH ×2 (09:00→18:58)
[2019-01-27] MEDS: PANTOPRAZOLE 40MG INJ (PROTONIX) (C9113) IV SCH ×2 (09:01→20:13)
[2019-01-27] MEDS: CIPROFLOXACIN 400 MG in IV 1 EA IV SCH ×2 (09:01→20:14)
[2019-01-27] MEDS: TORSEMIDE 10 MG TABLET PO SCH (09:01)
[2019-01-27 09:44] LABS: HEMATOCRIT 30.7 % (36.0-47.0); MEAN CORPUSCULAR HEMOGLOBIN 27.3 pg (27.0-33.0); MEAN CORPUSCULAR VOLUME 91.1 fl (80.0-96.0); PLATELET COUNT, AUTOMATED 187 10^3/uL (150-450); RED BLOOD COUNT 3.37 10^6/uL (4.00-5.40); WHITE BLOOD COUNT 6.1 10^3/uL (4.0-10.0)
[2019-01-27 09:48] LABS: HEMOGLOBIN 9.2 g/dl (12.0-15.5)
[2019-01-27 10:16] LABS: BLOOD UREA NITROGEN 45 MG/DL (7-18); CALCIUM LEVEL 8.3 MG/DL (8.8-10.2); CARBON DIOXIDE LEVEL 23 MEQ/L (21-32); CHLORIDE LEVEL 117 MEQ/L (98-107); CREATININE FOR GFR 0.92 MG/DL (0.55-1.30); GLOMERULAR FILTRATION RATE > 60.0 (>39); GLUCOSE, FASTING 120 MG/DL (70-100); MAGNESIUM LEVEL 2.2 MG/DL (1.8-2.4); POTASSIUM SERUM 4.6 MEQ/L (3.5-5.1); SODIUM LEVEL 149 MEQ/L (136-145); TROPONIN I 0.07 NG/ML (< 0.10)
[2019-01-27 14:03] LABS: HEMATOCRIT 30.1 % (36.0-47.0)
[2019-01-27] MEDS ORDERED: PROPOFOL 200 MG/20 ML VIAL As Ordered ONE (15:35)
--- NOTE | 2019-01-27 16:30 | ROOR ---
Patient Name: Stephanie Thompson Procedure Date: 01/27/2019 3:17 PM Date of : 1945 Age: 73 Room: Main OR Gender: Female Note Status: Finalized Procedure: Upper GI endoscopy Indications: Acute post hemorrhagic anemia, Iron deficiency anemia Providers: Aurelio VALLE MD Referring MD: Jay Chou MD, Quincy Galeas MD, 2. Inpatient 2. Inpatient Requesting Provider: Medicines: Monitored Anesthesia Care Complications: No immediate complications. Procedure: Pre-Anesthesia Assessment: - The heart rate, respiratory rate, oxygen saturations, blood pressure, adequacy of pulmonary ventilation, and response to care were monitored throughout the procedure. The Endoscope was introduced through the mouth, and advanced to the second part of duodenum. The upper GI endoscopy was accomplished without difficulty. The patient tolerated the procedure well. Findings: The examined esophagus was normal. Hematin (altered blood/zwiolj-ptcpin-opdf material) was found in the entire examined stomach. A large hiatal hernia with multiple Jeff ulcers was found. The exam of the stomach was otherwise normal. The examined duodenum was normal. Impression: - Normal esophagus. - Large Hematin (altered blood/lluzij-rgkfxc-hdvr material) in the entire stomach. - Large hiatal hernia with multiple Jeff erosions/ulcerations at waist of hernia. - Normal examined duodenum. - No specimens collected. Recommendation: - Use a proton pump inhibitor BID. - Avoid NSAIDS. - Iron supplement. - Consider eventual repair of hiatal hernia as the cause for intermittent blood loss/chronic anemia.--to be discussed with her team. Aurelio Valle MD Aurelio VALLE MD 01/27/2019 4:29:40 PM Electronically signed by Aurelio VALLE MD Number of Addenda: 0 Note Initiated On: 01/27/2019 3:17 PM Estimated Blood Loss: Estimated blood loss: none.
[2019-01-27] MEDS ORDERED: ONDANSETRON 4MG/2ML VIAL (J2405) IV PRN (16:45)
[2019-01-27] MEDS ORDERED: LR 1,000 ML IV SCH (16:45)
--- NOTE | 2019-01-27 17:01 | IPNPDOC ---
Subjective Date Seen The patient was seen on 01/27/19. Subjective Chief Complaint/HPI She states that she is currently feeling fairly well, especially as compared to when she came in. She has been transfused 2 units PRBCs, and denies any symptoms of anemia. She plans to be scoped by GI later today. Constitutional: Denies: Chills, Fever Pulmonary: Denies: Dyspnea, Cough Cardiovascular: Denies: Chest Pain Gastrointestinal: Denies: Nausea, Vomiting, Abdominal Pain, Diarrhea, Constipation Neurological: Reports: Other Symptoms (no dizziness); Denies: Weakness Objective Physical Examination General Exam: Positive: Alert, Cooperative, No Acute Distress Eye Exam: Positive: Conjunctiva & lids normal, EOMI; Negative: Sclera icteric Chest Exam: Positive: Clear to auscultation, Normal air movement Heart Exam: Positive: Rate Normal Abdomen Exam: Positive: BS Hypoactive, Soft; Negative: Tenderness Psych Exam: Positive: Mental status NL, Mood NL, Oriented x 3 Assessment /Plan Problems (1) GIB (gastrointestinal bleeding) Status: Acute Problem Text: Perhaps also acute on chronic. S/p transfusion. Previous evaluation has suggested gastritis and esophagitis. She is being scoped today to see if this helps establish an etiology of her bleeding. (2) Hypertension Status: Chronic (3) Anemia, iron deficiency Status: Acute Problem Text: Acute on chronic, s/p iron transfusion. (4) GERD (gastroesophageal reflux disease) Status: Chronic Problem Text: on Protonix Plan/VTE VTE Prophylaxis Ordered?: Yes VS, I&O, 24H, Fishbone Vital Signs/I&O Vital Signs Date Time Temp Pulse Resp B/P (MAP) Pulse Ox O2 Delivery O2 Flow Rate FiO2 01/27/19 16:40 79 18 98 Room Air 01/27/19 16:35 163/72 (102) 01/27/19 16:24 98.4 01/27/19 06:52 2.0 I&O- Last 24 Hours up to 6 AM 01/27/19 06:00 Intake Total 2810 ml Balance 2810 ml Laboratory Data 24H LABS Laboratory Tests 2 01/26/19 17:51: Anion Gap 8, Glomerular Filtration Rate > 60.0, Calcium Level 8.6L, Iron Level 235H, Total Iron Binding Capacity 333, Transferrin % Saturation 70.6H, Ferritin 59, Total Bilirubin 0.3, Direct Bilirubin < 0.1, Aspartate Amino Transf (AST/SGOT) 11, Alanine Aminotransferase (ALT/SGPT) 20, Alkaline Phosphatase 93, Total Creatine Kinase 56, Creatine Kinase MB < 1.0, Creatine Kinase MB Relative Index 1.79, Troponin I 0.06, Total Protein 6.5, Albumin 3.6, Albumin/Globulin Ratio 1.24, Lipase 115 01/26/19 19:42: Immature Granulocyte % (Auto) 0.4, Neutrophils (%) (Auto) 87.6H, Lymphocytes (%) (Auto) 8.1L, Monocytes (%) (Auto) 3.7, Eosinophils (%) (Auto) 0.0, Basophils (%) (Auto) 0.2, Neutrophils # (Auto) 7.4, Lymphocytes # (Auto) 0.7L, Monocytes # (Auto) 0.3, Eosinophils # (Auto) 0.0, Basophils # (Auto) 0.0, Nucleated Red Blood Cells % (auto) 0.0 01/26/19 22:19: Prothrombin Time 14.6H, Prothromb Time International Ratio 1.17, Activated Partial Thromboplast Time 26.1 01/27/19 01:41: Reticulocyte # (auto) 111.2H, Percent Reticulocyte Count 4.3H, Reticulocyte Hemoglobin Equivalent 34.0 01/27/19 09:30: Nucleated Red Blood Cells % (auto) 0.0, Anion Gap 9, Glomerular Filtration Rate > 60.0, Calcium Level 8.3L, Magnesium Level 2.2, Troponin I 0.07 CBC/BMP Laboratory Tests 01/26/19 17:51 01/26/19 19:42 01/27/19 01:41 01/27/19 09:30 01/27/19 13:41 Microbiology Microbiology 01/26/19 Blood Culture, Received Pending FERNANDO MATHEW DO Jan 27, 2019 17:01
[2019-01-27] MEDS: ONDANSETRON 4MG/2ML VIAL (J2405) IV PRN (21:31)
--- NOTE | 2019-01-27 22:13 | ECGEPIP ---
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 Electronically Signed on 01-27-2019 22:13:42 EST by Aurelio Nelson
[2019-01-28] VITALS: BP 148/82
[2019-01-28 06:14] LABS: HEMATOCRIT 27.3 % (36.0-47.0); HEMOGLOBIN 8.1 g/dl (12.0-15.5); MEAN CORPUSCULAR HEMOGLOBIN 27.2 pg (27.0-33.0); MEAN CORPUSCULAR HGB CONC 29.7 g/dl (32.0-36.5); MEAN CORPUSCULAR VOLUME 91.6 fl (80.0-96.0); PLATELET COUNT, AUTOMATED 174 10^3/uL (150-450); RED BLOOD COUNT 2.98 10^6/uL (4.00-5.40); WHITE BLOOD COUNT 4.9 10^3/uL (4.0-10.0)
[2019-01-28 06:32] LABS: ALBUMIN 3.1 GM/DL (3.2-5.2); BILIRUBIN,TOTAL 0.3 MG/DL (0.2-1.0); GLOMERULAR FILTRATION RATE 57.7 (>39); POTASSIUM SERUM 3.9 MEQ/L (3.5-5.1); TOTAL PROTEIN 5.6 GM/DL (6.4-8.2)
[2019-01-28] MEDS: NS 1,000 ML IV SCH ×2 (07:21→18:11)
[2019-01-28 08:00] VITALS: BP 130/80
[2019-01-28] MEDS: TORSEMIDE 10 MG TABLET PO SCH (09:03)
[2019-01-28] MEDS: PANTOPRAZOLE 40MG INJ (PROTONIX) (C9113) IV SCH ×2 (09:03→20:50)
[2019-01-28] MEDS: CIPROFLOXACIN 400 MG in IV 1 EA IV SCH ×2 (09:03→20:50)
[2019-01-28 12:00] VITALS: BP 135/80
[2019-01-28 16:00] VITALS: BP 145/80
--- NOTE | 2019-01-28 16:33 | IPNPDOC ---
Subjective Date Seen The patient was seen on 01/28/19. Subjective Chief Complaint/HPI Stephanie reports that she feels reasonably good today. She does still feel a little light headed if she gets up (e.g. to go to the bathroom). She is starting to feel hungry and would like to talk about advancing her diet. General: Reports: Normal Appetite Constitutional: Denies: Chills, Fever Pulmonary: Reports: Dyspnea; Denies: Cough Cardiovascular: Denies: Chest Pain, Palpitations Gastrointestinal: Denies: Nausea, Vomiting Psych: Reports: Mood Normal Objective Physical Examination General Exam: Positive: Alert, Cooperative (laying bed watching TV when I ente red the room), No Acute Distress Eye Exam: Positive: Conjunctiva & lids normal, EOMI; Negative: Sclera icteric ENT Exam: Positive: Mucous membr. moist/pink Neck Exam: Positive: Supple; Negative: Lymphadenopathy Chest Exam: Positive: Clear to auscultation, Normal air movement Heart Exam: Positive: Rate Normal Abdomen Exam: Positive: BS Hypoactive, Soft; Negative: Tenderness (including deeper epigastric palpation) Extremity Exam: Negative: Edema Psych Exam: Positive: Mental status NL, Mood NL, Oriented x 3 Assessment /Plan Problems (1) Acute Jeff ulcer Status: Acute Problem Specific Plan: Monitor Clinically, Repeat Labs Problem Text: She had acute bleeding ulcers noted in her hiatal hernia on the EGD yesterday. We will stabilize her blood counts and start her on a PPI BID, but eventually she will need a surgical repair. I spoke briefly with the patient about this today; she was pleasantly surprised to find it could be done laproscopically now. She would like to do this, but after the Holiday season. (2) GIB (gastrointestinal bleeding) Status: Acute Problem Text: Probably acute on chronic. S/p 2 unit transfusion. Her Hb has drifted down again after the transfusion, but seems to have stabilized in the low 8s. She is mildly, but not severely symptomatic. Will continue to monitor. If she drops below 8, I will plan on transfusing her again. (3) Acute blood loss anemia Status: Acute Problem Specific Plan: Monitor Clinically, Repeat Labs Problem Text: Monitoring for stability as above. (4) Anemia, iron deficiency Status: Acute Problem Text: Acute on chronic, s/p iron transfusion. (5) Hypertension Status: Chronic (6) GERD (gastroesophageal reflux disease) Status: Chronic Problem Text: on Protonix Plan/VTE VTE Prophylaxis Ordered?: Yes (SCD/TEDS) VTE Exclusion Pharmacological: Active Bleeding VS, I&O, 24H, Fishbone Vital Signs/I&O Vital Signs Date Time Temp Pulse Resp B/P (MAP) Pulse Ox O2 Delivery O2 Flow Rate FiO2 01/28/19 12:00 97.9 74 18 135/80 (98) 97 Room Air 01/27/19 06:52 2.0 I&O- Last 24 Hours up to 6 AM 01/28/19 06:00 Intake Total 2190 ml Output Total 1500 ml Balance 690 ml Laboratory Data 24H LABS Laboratory Tests 2 01/28/19 05:35: Nucleated Red Blood Cells % (auto) 0.0, Anion Gap 9, Glomerular Filtration Rate 57.7, Calcium Level 8.0L, Total Bilirubin 0.3, Aspartate Amino Transf (AST/SGOT) 11, Alanine Aminotransferase (ALT/SGPT) 14, Alkaline Phosphatase 69, Total Protein 5.6L, Albumin 3.1L, Albumin/Globulin Ratio 1.24 CBC/BMP Laboratory Tests 01/28/19 05:35 Microbiology Microbiology 01/26/19 Blood Culture - Preliminary, Resulted No growth after 24 hours . All specim... Chris Larsen MD Jan 28, 2019 16:33
[2019-01-28 17:23] LABS: HEMOGLOBIN 8.3 g/dl (12.0-15.5)
[2019-01-28] MEDS: ATORVASTATIN 10 MG TAB PO SCH (18:11)
[2019-01-28] MEDS: LACTOBACILLUS ACIDOPHILUS CAP (BACID) PO SCH (18:11)
[2019-01-28 20:00] VITALS: BP 148/80
[2019-01-28] MEDS: SUCRALFATE SUSP 1GM/10ML UD PO SCH (20:50)
[2019-01-28 23:59] VITALS: BP 150/64
[2019-01-29] VITALS (14 sets, daily range): BP systolic 139–168; BP diastolic 72–86
[2019-01-29 06:07] LABS: HEMATOCRIT 23.8 % (36.0-47.0); HEMOGLOBIN 7.5 g/dl (12.0-15.5); MEAN CORPUSCULAR HEMOGLOBIN 28.1 pg (27.0-33.0); MEAN CORPUSCULAR HGB CONC 31.5 g/dl (32.0-36.5); MEAN CORPUSCULAR VOLUME 89.1 fl (80.0-96.0); PLATELET COUNT, AUTOMATED 147 10^3/uL (150-450); RED BLOOD COUNT 2.67 10^6/uL (4.00-5.40); WHITE BLOOD COUNT 4.2 10^3/uL (4.0-10.0)
[2019-01-29 06:35] LABS: ALBUMIN 2.9 GM/DL (3.2-5.2); ALT/SGPT 16 U/L (12-78); BILIRUBIN,TOTAL 0.3 MG/DL (0.2-1.0); BLOOD UREA NITROGEN 11 MG/DL (7-18); CALCIUM LEVEL 7.8 MG/DL (8.8-10.2); CARBON DIOXIDE LEVEL 28 MEQ/L (21-32); CHLORIDE LEVEL 113 MEQ/L (98-107); CREATININE FOR GFR 0.74 MG/DL (0.55-1.30); GLOMERULAR FILTRATION RATE > 60.0 (>39); GLUCOSE, FASTING 104 MG/DL (70-100); POTASSIUM SERUM 3.1 MEQ/L (3.5-5.1); SODIUM LEVEL 147 MEQ/L (136-145); TOTAL PROTEIN 5.3 GM/DL (6.4-8.2)
[2019-01-29] MEDS: SUCRALFATE SUSP 1GM/10ML UD PO SCH ×4 (07:32→20:18)
[2019-01-29] MEDS ORDERED: POTASSIUM CHLORIDE 10 MEQ SR TABLET PO ONE ×2 (08:00→18:00)
[2019-01-29] MEDS ORDERED: FUROSEMIDE 20 MG/2 ML VIAL (J1940) IV ONE (09:00)
[2019-01-29] MEDS: CIPROFLOXACIN 400 MG in IV 1 EA IV SCH ×2 (09:32→20:19)
[2019-01-29] MEDS: ATORVASTATIN 10 MG TAB PO SCH (09:32)
[2019-01-29] MEDS: LACTOBACILLUS ACIDOPHILUS CAP (BACID) PO SCH ×2 (09:32→17:46)
[2019-01-29] MEDS: PANTOPRAZOLE 40MG INJ (PROTONIX) (C9113) IV SCH ×2 (09:33→20:19)
[2019-01-29] MEDS: NS 1,000 ML IV SCH ×2 (09:34→18:46)
--- NOTE | 2019-01-29 17:20 | IPNPDOC ---
Subjective Date Seen The patient was seen on 01/29/19. Objective Physical Examination General Exam: Positive: Alert, Cooperative (laying bed watching TV when I entered the room), No Acute Distress Eye Exam: Positive: Conjunctiva & lids normal, EOMI; Negative: Sclera icteric ENT Exam: Positive: Mucous membr. moist/pink Neck Exam: Positive: Supple; Negative: Lymphadenopathy Chest Exam: Positive: Clear to auscultation, Normal air movement Heart Exam: Positive: Rate Normal Abdomen Exam: Positive: BS Hypoactive, Soft; Negative: Tenderness (including deeper epigastric palpation) Extremity Exam: Negative: Edema Psych Exam: Positive: Mental status NL, Mood NL, Oriented x 3 Assessment /Plan Problems (1) Acute Jeff ulcer Status: Acute Problem Specific Plan: Monitor Clinically, Repeat Labs Problem Text: She had acute bleeding ulcers noted in her hiatal hernia on the EGD yesterday. We will stabilize her blood counts and start her on a PPI BID, but eventually she will need a surgical repair. I spoke briefly with the patient about this today; she was pleasantly surprised to find it could be done laproscopically now. She would like to do this, but after the season. (2) GIB (gastrointestinal bleeding) Status: Acute Problem Text: Probably acute on chronic. S/p 2 unit transfusion. Her Hb has drifted down again after the transfusion, but seems to have stabilized in the low 8s. She is mildly, but not severely symptomatic. Will continue to monitor. If she drops below 8, I will plan on transfusing her again. (3) Acute blood loss anemia Status: Acute Problem Specific Plan: Monitor Clinically, Repeat Labs Problem Text: Monitoring for stability as above. (4) Anemia, iron deficiency Status: Acute Problem Text: Acute on chronic, s/p iron transfusion. (5) Hypertension Status: Chronic (6) GERD (gastroesophageal reflux disease) Status: Chronic Problem Text: on Protonix Plan/VTE VTE Prophylaxis Ordered?: Yes (SCD/TEDS) VTE Exclusion Pharmacological: Active Bleeding VS, I&O, 24H, Fishbone Vital Signs/I&O Vital Signs Date Time Temp Pulse Resp B/P (MAP) Pulse Ox O2 Delivery O2 Flow Rate FiO2 01/29/19 16:00 98.0 68 16 168/86 (113) 96 Room Air 01/27/19 06:52 2.0 I&O- Last 24 Hours up to 6 AM 01/29/19 06:00 Intake Total 360 ml Output Total 1000 ml Balance -640 ml Laboratory Data 24H LABS Laboratory Tests 2 01/29/19 05:12: Nucleated Red Blood Cells % (auto) 0.0, Anion Gap 6L, Glomerular Filtration Rate > 60.0, Calcium Level 7.8L, Total Bilirubin 0.3, Aspartate Amino Transf (AST/SGOT) 12, Alanine Aminotransferase (ALT/SGPT) 16, Alkaline Phosphatase 64, Total Protein 5.3L, Albumin 2.9L, Albumin/Globulin Ratio 1.21 CBC/BMP Laboratory Tests 01/29/19 05:12 Microbiology Microbiology 01/26/19 Blood Culture - Preliminary, Resulted No Growth after 48 hours. All Specime... Chris Larsen MD Jan 29, 2019 17:20
[2019-01-29 20:39] LABS: HEMATOCRIT 32.4 % (36.0-47.0); HEMOGLOBIN 10.3 g/dl (12.0-15.5)
[2019-01-29 20:53] LABS: POTASSIUM SERUM 3.8 MEQ/L (3.5-5.1)
[2019-01-30] VITALS (7 sets, daily range): BP systolic 142–170; BP diastolic 68–84
[2019-01-30 05:31] LABS: HEMATOCRIT 32.2 % (36.0-47.0); HEMOGLOBIN 9.9 g/dl (12.0-15.5); MEAN CORPUSCULAR HEMOGLOBIN 27.6 pg (27.0-33.0); MEAN CORPUSCULAR HGB CONC 30.7 g/dl (32.0-36.5); MEAN CORPUSCULAR VOLUME 89.7 fl (80.0-96.0); PLATELET COUNT, AUTOMATED 142 10^3/uL (150-450); RED BLOOD COUNT 3.59 10^6/uL (4.00-5.40); WHITE BLOOD COUNT 4.4 10^3/uL (4.0-10.0)
[2019-01-30 05:53] LABS: ALT/SGPT 15 U/L (12-78); BILIRUBIN,TOTAL 0.5 MG/DL (0.2-1.0); BLOOD UREA NITROGEN 6 MG/DL (7-18); CARBON DIOXIDE LEVEL 28 MEQ/L (21-32); CHLORIDE LEVEL 112 MEQ/L (98-107); CREATININE FOR GFR 0.66 MG/DL (0.55-1.30); GLOMERULAR FILTRATION RATE > 60.0 (>39); GLUCOSE, FASTING 103 MG/DL (70-100); POTASSIUM SERUM 3.6 MEQ/L (3.5-5.1); SODIUM LEVEL 148 MEQ/L (136-145); TOTAL PROTEIN 5.6 GM/DL (6.4-8.2)
[2019-01-30] MEDS: NS 1,000 ML IV SCH (06:11)
[2019-01-30] MEDS: ATORVASTATIN 10 MG TAB PO SCH (08:13)
[2019-01-30] MEDS: LACTOBACILLUS ACIDOPHILUS CAP (BACID) PO SCH ×2 (08:13→17:19)
[2019-01-30] MEDS: SUCRALFATE SUSP 1GM/10ML UD PO SCH ×4 (08:17→20:11)
[2019-01-30] MEDS: CIPROFLOXACIN 400 MG in IV 1 EA IV SCH (08:18)
[2019-01-30] MEDS: PANTOPRAZOLE 40MG INJ (PROTONIX) (C9113) IV SCH ×2 (08:18→20:11)
--- NOTE | 2019-01-30 10:01 | IPNPDOC ---
Subjective Date Seen The patient was seen on 01/30/19. Subjective Chief Complaint/HPI GIB Events since last encounter Patient denies c/o today. Constitutional: Denies: Chills, Fever, Night Sweats Gastrointestinal: Denies: Nausea, Vomiting, Abdominal Pain, Diarrhea, C onstipation Genitourinary: Denies: Dysuria, Frequency, Incontinence, Retention Psych: Reports: Mood Normal; Denies: Depression, Memory Issues Objective Physical Examination General Exam: Positive: Alert, Cooperative (laying bed watching TV when I entered the room), No Acute Distress Eye Exam: Positive: Conjunctiva & lids normal, EOMI; Negative: Sclera icteric ENT Exam: Positive: Mucous membr. moist/pink Neck Exam: Positive: Supple; Negative: Lymphadenopathy Chest Exam: Positive: Clear to auscultation, Normal air movement Heart Exam: Positive: Rate Normal Abdomen Exam: Positive: BS Hypoactive, Soft; Negative: Tenderness (including deeper epigastric palpation) Extremity Exam: Negative: Edema Psych Exam: Positive: Mental status NL, Mood NL, Oriented x 3 Assessment /Plan Problems (1) Acute Jeff ulcer Status: Acute Problem Specific Plan: Monitor Clinically, Repeat Labs Problem Text: 01/30/19: Continue Protonix 40 mg IV bid. If hgb remains stable, consider DC home tomorrow with outpatient surgical consult for potential Jaclyn Fundoplication +/- [facility] rx c BID PPI, QHS H2B She had acute bleeding ulcers noted in her hiatal hernia on the EGD yesterday. We will stabilize her blood counts and start her on a PPI BID, but eventually she will need a surgical repair. I spoke briefly with the patient about this today; she was pleasantly surprised to find it could be done laproscopically now . She would like to do this, but after the Holiday season. (2) GIB (gastrointestinal bleeding) Status: Acute Problem Text: Probably acute on chronic. S/p 2 unit transfusion. Her Hb has drifted down again after the transfusion, but seems to have stabilized in the low 8s. She is mildly, but not severely symptomatic. Will continue to monitor. If she drops below 8, I will plan on transfusing her again. (3) Acute blood loss anemia Status: Acute Problem Specific Plan: Monitor Clinically, Repeat Labs Problem Text: Monitoring for stability as above. (4) Anemia, iron deficiency Status: Acute Problem Text: Acute on chronic, s/p iron transfusion. (5) Hypertension Status: Chronic (6) GERD (gastroesophageal reflux disease) Status: Chronic Problem Text: on Protonix Plan/VTE VTE Prophylaxis Ordered?: Yes (SCD/TEDS) VTE Exclusion Pharmacological: Active Bleeding VS, I&O, 24H, Fishbone Vital Signs/I&O Vital Signs Date Time Temp Pulse Resp B/P (MAP) Pulse Ox O2 Delivery O2 Flow Rate FiO2 01/30/19 08:19 97.5 67 18 164/74 (104) 96 Room Air 01/27/19 06:52 2.0 I&O- Last 24 Hours up to 6 AM 01/30/19 06:00 Intake Total 3300 ml Output Total 980 ml Balance 2320 ml Laboratory Data 24H LABS Laboratory Tests 2 01/29/19 20:18: Anion Gap 6L, Magnesium Level 2.0 01/30/19 05:00: Anion Gap 8, Nucleated Red Blood Cells % (auto) 0.0, Glomerular Filtration Rate > 60.0, Calcium Level 8.0L, Total Bilirubin 0.5#, Aspartate Amino Transf (AST/SGOT) 13, Alanine Aminotransferase (ALT/SGPT) 15, Alkaline Phosphatase 72, Total Protein 5.6L, Albumin 3.0L, Albumin/Globulin Ratio 1.15 CBC/BMP Laboratory Tests 01/29/19 20:18 01/30/19 05:00 Microbiology Microbiology 01/26/19 Blood Culture - Preliminary, Resulted No Growth after 72 hours. All specime... Loren Alas Jan 30, 2019 10:01 Massimo Mayen M.D. Jan 30, 2019 15:26
[2019-01-30] MEDS: lisinopriL 20 MG TAB PO SCH (10:26)
[2019-01-30] MEDS: DOCUSATE SODIUM 100 MG CAP PO PRN (10:26)
[2019-01-30] MEDS: FERROUS SULFATE 325MG TAB PO SCH (10:26)
[2019-01-30] MEDS: OCUVITE 1 TAB PO SCH (11:29)
[2019-01-30] MEDS ORDERED: CIPROFLOXACIN 500 MG TAB PO SCH (18:00)
[2019-01-31 04:00] VITALS: BP 158/72
[2019-01-31 06:07] LABS: HEMATOCRIT 34.1 % (36.0-47.0); HEMOGLOBIN 10.6 g/dl (12.0-15.5); MEAN CORPUSCULAR HEMOGLOBIN 27.9 pg (27.0-33.0); MEAN CORPUSCULAR HGB CONC 31.1 g/dl (32.0-36.5); MEAN CORPUSCULAR VOLUME 89.7 fl (80.0-96.0); PLATELET COUNT, AUTOMATED 156 10^3/uL (150-450); WHITE BLOOD COUNT 4.5 10^3/uL (4.0-10.0)
[2019-01-31 06:39] LABS: ALBUMIN 3.2 GM/DL (3.2-5.2); ALT/SGPT 14 U/L (12-78); BILIRUBIN,TOTAL 0.5 MG/DL (0.2-1.0); BLOOD UREA NITROGEN 8 MG/DL (7-18); CALCIUM LEVEL 8.6 MG/DL (8.8-10.2); CARBON DIOXIDE LEVEL 28 MEQ/L (21-32); CHLORIDE LEVEL 110 MEQ/L (98-107); CREATININE FOR GFR 0.78 MG/DL (0.55-1.30); GLOMERULAR FILTRATION RATE > 60.0 (>39); GLUCOSE, FASTING 103 MG/DL (70-100); POTASSIUM SERUM 3.6 MEQ/L (3.5-5.1); SODIUM LEVEL 144 MEQ/L (136-145)
[2019-01-31] MEDS: SUCRALFATE SUSP 1GM/10ML UD PO SCH (08:07)
[2019-01-31 08:23] VITALS: BP 142/62
[2019-01-31] MEDS: LACTOBACILLUS ACIDOPHILUS CAP (BACID) PO SCH (09:21)
[2019-01-31] MEDS ORDERED: ACETAMINOPHEN 500 MG TAB PO ONE (10:00)
[2019-01-31] MEDS ORDERED: PANT40TA3 PO (10:03)
[2019-01-31] MEDS ORDERED: SUCR10SS PO (10:03)
[2019-01-31] MEDS ORDERED: FERR325T18 PO (10:03)
[2019-01-31] MEDS: PANTOPRAZOLE 40MG INJ (PROTONIX) (C9113) IV SCH (10:11)
[2019-01-31] MEDS: OCUVITE 1 TAB PO SCH (10:12)
[2019-01-31] MEDS: lisinopriL 20 MG TAB PO SCH (10:12)
[2019-01-31 10:13] VITALS: BP 142/62
[2019-01-31] MEDS: ATORVASTATIN 10 MG TAB PO SCH (10:14)
[2019-01-31] MEDS: FERROUS SULFATE 325MG TAB PO SCH (10:14)
[2019-01-31] MEDS: DOCUSATE SODIUM 100 MG CAP PO PRN (10:37)
--- NOTE | 2019-02-01 00:17 | DSES ---
DATE OF ADMISSION: 01/26/2019 DATE OF DISCHARGE: 01/31/2019 PRIMARY CARE PROVIDER: Dr. Jay Chou ATTENDING PHYSICIAN: Dr. Jay Chou HISTORY OF THE PRESENT ILLNESS: This is a 73-year-old female who presented to the emergency department (ED) with complaints of nausea, diaphoresis, multiple episodes of dark-colored vomit and melenic stools. Workup in the ED proved positive for significant anemia. The patient was subsequently admitted to the family medicine service for management. HOSPITAL COURSE: The patient received a total of 4 units of packed red cells. She is status post endoscopy with Dr. Valle on 01/27/2019. The patient was found to have a large hiatal hernia with multiple Jeff ulcers and Hematin found in the entire examined stomach. The patient was subsequently placed on Protonix 40 mg IV as well as Carafate before food and nightly. She received her last transfusion on 01/29/2019, and her hemoglobin has remained stable over the last 48 hours. Patient has not had any further melenic stools. IMAGING: None for this hospitalization. CONSULTATIONS: Dr. Aurelio Valle, Gastroenterology. PROCEDURES: Upper endoscopy with Dr. Aurelio Valle, as previously stated. On physical exam, vital signs are stable. She is afebrile. HEENT: Neck is supple without lymphadenopathy or jugular venous distention (JVD). Cardiovascular: Rhythm regular. Pulmonary: Lungs are clear. Abdomen is soft and nontender. Bilateral lower extremities are without any edema. Neurologic: Patient is alert and oriented times three. ASSESSMENT: 1. Gastrointestinal (GI) bleed with Jeff ulcers. 2. Large hiatal hernia. 3. Acute blood loss anemia. 4. Iron deficiency anemia. 5. Hypertension. 6. Gastroesophageal reflux disease (GERD). PLAN: The patient will be discharged to home. Diet is 2-gram sodium. Activity is as tolerated. Medications are as follows: - ferrous sulfate 325 mg by mouth twice a day - pantoprazole sodium 40 mg by mouth twice a day - Carafate 1 gram by mouth before food and nightly - Tylenol 500 mg two by mouth every 4 hours as needed for pain - amlodipine 2.5 mg by mouth daily - atorvastatin 10 mg by mouth daily - calcium carbonate 500 mg by mouth daily - Refresh eye drops one drop both eyes every 6 hours as needed for dry eyes - vitamin D3 2000 international units by mouth daily - Colace 100 mg by mouth daily as needed constipation - probiotic one tablet by mouth with meals - Aspercreme topically three times a day as needed for pain - lisinopril 40 mg by mouth daily - Lutein 20 mg by mouth daily - torsemide 10 mg daily - Ocuvite one by mouth daily Patient is discharged in stable and satisfactory condition at the time of discharge.
== END 2019-01-31 12:10 | disposition home or self-care (01) | DRG 378 ==
LOC: M ED 17:16 → M ED INP 20:21 → M PCU 01-27 13:08
PROVIDERS: ADMIT Internal Medicine; ATTEND Family Medicine
PROC: 30233N1 Transfusion of Nonautologous Red Blood Cells into Peripheral Vein, Percutaneous Approach (ICD-10-PCS; 2019-01-27)
PROC: 0DJ08ZZ Inspection of Upper Intestinal Tract, Via Natural or Artificial Opening Endoscopic (ICD-10-PCS; principal; 2019-01-27 15:30)
DX: K25.0 Acute gastric ulcer with hemorrhage (principal); I50.32 Chronic diastolic (congestive) heart failure; D62 Acute posthemorrhagic anemia; I11.0 Hypertensive heart disease with heart failure; M81.0 Age-related osteoporosis without current pathological fracture; Z87.891 Personal history of nicotine dependence; Z98.41 Cataract extraction status, right eye; D50.9 Iron deficiency anemia, unspecified; K21.9 Gastro-esophageal reflux disease without esophagitis; K44.9 Diaphragmatic hernia without obstruction or gangrene; E66.9 Obesity, unspecified; Z68.35 Body mass index [BMI] 35.0-35.9, adult; Z79.899 Other long term (current) drug therapy; Z88.4 Allergy status to anesthetic agent; Z88.0 Allergy status to penicillin; Z88.8 Allergy status to other drugs, medicaments and biological substances; Z91.048 Other nonmedicinal substance allergy status

== ENCOUNTER → 2019-02-23 | Outpatient (CLI) | payer MEDICARE ==
[~2019-02-23] MED LIST changes: +FERR325T18 PO; +LUTE2000 PO; +PANT40TA3 PO; +VITA200010 PO
[2019-02-23 17:06] LABS: HEMOGLOBIN 12.4 g/dl (12.0-15.5); MEAN CORPUSCULAR HEMOGLOBIN 28.4 pg (27.0-33.0); MEAN CORPUSCULAR VOLUME 91.5 fl (80.0-96.0); PLATELET COUNT, AUTOMATED 225 10^3/uL (150-450); RED BLOOD COUNT 4.37 10^6/uL (4.00-5.40); WHITE BLOOD COUNT 6.1 10^3/uL (4.0-10.0)
[2019-02-23 17:08] LABS: ALBUMIN 4.3 GM/DL (3.2-5.2); ALT/SGPT 22 U/L (12-78); BILIRUBIN,TOTAL 0.5 MG/DL (0.2-1.0); BLOOD UREA NITROGEN 11 MG/DL (7-18); CALCIUM LEVEL 8.9 MG/DL (8.8-10.2); CARBON DIOXIDE LEVEL 32 MEQ/L (21-32); CHLORIDE LEVEL 105 MEQ/L (98-107); CHOLESTEROL LEVEL 170 MG/DL (<200); CHOLESTEROL RISK RATIO 2.361 (<5); GLOMERULAR FILTRATION RATE > 60.0 (>39); GLUCOSE, FASTING 110 MG/DL (70-100); HDL CHOLESTEROL 72 MG/DL (>40); LDL CHOLESTEROL 76 MG/DL (<100); NON-HDL-C 98 MG/DL; POTASSIUM SERUM 3.6 MEQ/L (3.5-5.1); SODIUM LEVEL 144 MEQ/L (136-145); TOTAL PROTEIN 7.3 GM/DL (6.4-8.2); TRIGLYCERIDES LEVEL 112 MG/DL (<150)
[2019-02-23 17:17] LABS: VITAMIN B12 LEVEL 1334 PG/ML (247-911)
[2019-02-23 17:23] LABS: HEMOGLOBIN A1c 5.3 %
== END ==
LOC: M PLALAB 12:02
PROVIDERS: ATTEND Family Medicine
DX: D51.9 Vitamin B12 deficiency anemia, unspecified (principal); D50.8 Other iron deficiency anemias; E78.2 Mixed hyperlipidemia; R73.01 Impaired fasting glucose

== ENCOUNTER → 2019-03-28 | Outpatient (CLI) | payer MEDICARE ==
[~2019-03-28] MED LIST changes: -SUCR10SS PO; +SUCR1ORA2 PO
[2019-03-28 14:26] LABS: HEMATOCRIT 37.4 % (36.0-47.0); HEMOGLOBIN 12.1 g/dl (12.0-15.5); MEAN CORPUSCULAR HEMOGLOBIN 29.4 pg (27.0-33.0); MEAN CORPUSCULAR HGB CONC 32.4 g/dl (32.0-36.5); MEAN CORPUSCULAR VOLUME 90.8 fl (80.0-96.0); PLATELET COUNT, AUTOMATED 210 10^3/uL (150-450); RED BLOOD COUNT 4.12 10^6/uL (4.00-5.40); WHITE BLOOD COUNT 4.6 10^3/uL (4.0-10.0)
[2019-03-28 14:37] LABS: BLOOD UREA NITROGEN 14 MG/DL (7-18); CALCIUM LEVEL 9.4 MG/DL (8.8-10.2); CARBON DIOXIDE LEVEL 33 MEQ/L (21-32); CHLORIDE LEVEL 105 MEQ/L (98-107); FERRITIN 25 NG/ML (8-252); GLOMERULAR FILTRATION RATE > 60.0 (>39); GLUCOSE, FASTING 103 MG/DL (70-100); IRON (FE) 80 UG/DL (50-170); PERCENT SATURATION 23.6 % (13.2-45.0); POTASSIUM SERUM 3.7 MEQ/L (3.5-5.1); SODIUM LEVEL 142 MEQ/L (136-145); TOTAL IRON BINDING CAPACITY 339 UG/DL (250-450)
== END ==
LOC: M PLALAB 11:43
PROVIDERS: ATTEND Family Medicine
DX: K25.3 Acute gastric ulcer without hemorrhage or perforation (principal); D50.8 Other iron deficiency anemias; I11.9 Hypertensive heart disease without heart failure

== ENCOUNTER → 2019-04-17 | Outpatient (CLI) | payer MEDICARE ==
--- NOTE | 2019-04-17 12:37 | REP ---
Right lower extremity Duplex Doppler venous ultrasound: Real time compression and duplex Doppler interrogation of the right lower extremity deep venous system is performed. The right common femoral, superficial femoral and popliteal veins are fully compressible with transducer pressure and demonstrate normal spontaneous and phasic flow, without evidence of deep venous thrombosis. Impression: No evidence of deep venous thrombosis of the right lower extremity femoral popliteal venous system. Electronically Signed by Kaushik Carpenter MD 04/17/2019 12:29 P
== END ==
LOC: M RAD 11:44
PROVIDERS: ATTEND Physician Assistant Surgical
DX: M17.11 Unilateral primary osteoarthritis, right knee (principal); M79.604 Pain in right leg

== ENCOUNTER → 2019-06-27 | Outpatient (REF) | payer MEDICARE ==
[~2019-06-27] MED LIST changes: +ACET650T61 PO; +D31000TA2 PO; -LISI-538 PO; +LISI20TA33 PO; +PANT40TA29 PO; -PANT40TA3 PO; -TYLE650T35 PO
[2019-06-27 18:17] LABS: ALBUMIN 3.9 GM/DL (3.2-5.2); ALT/SGPT 22 U/L (12-78); BILIRUBIN,TOTAL 0.3 MG/DL (0.2-1.0); BLOOD UREA NITROGEN 8 MG/DL (7-18); CALCIUM LEVEL 8.8 MG/DL (8.8-10.2); CARBON DIOXIDE LEVEL 33 MEQ/L (21-32); CHLORIDE LEVEL 106 MEQ/L (98-107); CHOLESTEROL LEVEL 187 MG/DL (<200); CHOLESTEROL RISK RATIO 2.671 (<5); CREATININE FOR GFR 0.78 MG/DL (0.55-1.30); FERRITIN 28 NG/ML (8-252); GLOMERULAR FILTRATION RATE > 60.0 (>39); GLUCOSE, FASTING 108 MG/DL (70-100); HDL CHOLESTEROL 70 MG/DL (>40); IRON (FE) 37 UG/DL (50-170); LDL CHOLESTEROL 96 MG/DL (<100); NON-HDL-C 117 MG/DL; PERCENT SATURATION 11.3 % (13.2-45.0); POTASSIUM SERUM 3.1 MEQ/L (3.5-5.1); SODIUM LEVEL 144 MEQ/L (136-145); TOTAL IRON BINDING CAPACITY 326 UG/DL (250-450); TOTAL PROTEIN 6.9 GM/DL (6.4-8.2); TRIGLYCERIDES LEVEL 104 MG/DL (<150)
[2019-06-27 18:30] LABS: HEMOGLOBIN A1c 5.6 %
[2019-06-27 18:47] LABS: HEMATOCRIT 34.1 % (36.0-47.0); HEMOGLOBIN 11.6 g/dl (12.0-15.5); MEAN CORPUSCULAR HEMOGLOBIN 30.4 pg (27.0-33.0); MEAN CORPUSCULAR VOLUME 89.3 fl (80.0-96.0); PLATELET COUNT, AUTOMATED 257 10^3/uL (150-450); RED BLOOD COUNT 3.82 10^6/uL (4.00-5.40); WHITE BLOOD COUNT 4.2 10^3/uL (4.0-10.0)
== END ==
LOC: M SFHCADAM 10:52
PROVIDERS: ATTEND Family Medicine
DX: K25.3 Acute gastric ulcer without hemorrhage or perforation (principal); D50.8 Other iron deficiency anemias; I11.9 Hypertensive heart disease without heart failure; R73.01 Impaired fasting glucose; E78.2 Mixed hyperlipidemia

== ENCOUNTER → 2019-06-30 | Outpatient (CLI) | payer MEDICARE ==
[~2019-06-30] MED LIST changes: -ACET650T61 PO; -D31000TA2 PO; +LISI-538 PO; -LISI20TA33 PO; -PANT40TA29 PO; +PANT40TA3 PO; +TYLE650T35 PO; +VITAD1000T PO
== END ==
LOC: M LABSMTC 10:06
PROVIDERS: ATTEND Anesthesiology
DX: Z03.818 Encounter for observation for suspected exposure to other biological agents ruled out (principal); Z11.59 Encounter for screening for other viral diseases
CPT/HCPCS: C9803; U0003

== ENCOUNTER 2019-07-03 06:31 | Day surgery (SDC) | payer MEDICARE ==
[~2019-07-03] VITALS: Ht 157.5 cm; Wt 90.3 kg
[~2019-07-03 06:31] MED LIST changes: +NS 1,000 ML IV ONE
[2019-07-03] MEDS ORDERED: LIDOCAINE 2% 100MG/5ML SDV (FOR ANES.) As Ordered ONE (07:48)
[2019-07-03] MEDS ORDERED: propofoL 200 MG/20 ML VIAL As Ordered ONE (07:48)
--- NOTE | 2019-07-03 07:53 | ROOR ---
Patient Name: Stephanie Thompson Procedure Date: 07/03/2019 7:33 AM Date of : 1945 Age: 74 Room: [facility] Gender: Female Note Status: Finalized Procedure: Upper Endoscopy + Biopsies Indications: Iron deficiency anemia, Unexplained iron deficiency anemia Providers: Quincy Galeas MD Referring MD: Jay Chou MD Requesting Provider: Medicines: Monitored Anesthesia Care Complications: No immediate complications. Procedure: Pre-Anesthesia Assessment: - The heart rate, respiratory rate, oxygen saturations, blood pressure, adequacy of pulmonary ventilation, and response to care were monitored throughout the procedure. The Endoscope was introduced through the mouth, and advanced to the second part of duodenum. Findings: The Z-line was irregular and was found 30 cm from the incisors. Multiple biopsies were obtained with cold forceps for evaluation to rule out Arroyo's Esophagus randomly at the gastroesophageal junction. A medium-sized hiatal hernia was present. No other significant abnormalities were identified in a careful examination of the stomach. Biopsies were taken with a cold forceps in the gastric antrum for Helicobacter pylori testing. The exam of the duodenum was otherwise normal. Biopsies for histology were taken with a cold forceps in the first portion of the duodenum for evaluation of celiac disease. The exam was otherwise without abnormality. Impression: - Z-line irregular, 30 cm from the incisors. - Medium-sized hiatal hernia. - The examination was otherwise normal. - Multiple biopsies were obtained at the gastroesophageal junction. - Biopsies were taken with a cold forceps for Helicobacter pylori testing. - Biopsies were taken with a cold forceps for evaluation of celiac disease. - The examination was otherwise normal. Recommendation: - Patient has a contact number available for emergencies. The signs and symptoms of potential delayed complications were discussed with the patient. Return to normal activities tomorrow. Written discharge instructions were provided to the patient. - High fiber diet. - Discharge patient to home. - Continue present medications. - Await pathology results. - Telephone GI clinic for pathology results in 1 week. - Return to referring physician. - The findings and recommendations were discussed with the patient. Quincy Galeas MD Quincy Galeas MD 07/03/2019 7:53:00 AM Electronically signed by Quincy Galeas MD Number of Addenda: 0 Note Initiated On: 07/03/2019 7:33 AM Estimated Blood Loss: Estimated blood loss: none.
[2019-07-03 08:22] VITALS: BP 158/86
== END 2019-07-03 08:21 | disposition home or self-care (01) ==
LOC: M OPP 06:31
PROVIDERS: ATTEND Internal Medicine Gastroenterology
DX: K22.8 Other specified diseases of esophagus (principal); K44.9 Diaphragmatic hernia without obstruction or gangrene; D50.9 Iron deficiency anemia, unspecified; I10 Essential (primary) hypertension; K29.80 Duodenitis without bleeding; K29.70 Gastritis, unspecified, without bleeding; Z79.899 Other long term (current) drug therapy; Z88.0 Allergy status to penicillin; Z88.8 Allergy status to other drugs, medicaments and biological substances; Z91.048 Other nonmedicinal substance allergy status; Z87.891 Personal history of nicotine dependence

== ENCOUNTER → 2019-08-02 | Outpatient (CLI) | payer MEDICARE ==
[~2019-08-02] MED LIST changes: +ACET650T61 PO; +D31000TA2 PO; -NS 1,000 ML IV ONE; +PANT40TA29 PO; -PANT40TA3 PO; -TYLE650T35 PO; -VITAD1000T PO
--- NOTE | 2019-08-02 14:41 | REPMRS ---
Patient History The patient states she had a clinical breast exam in July 2019. Family history of ovarian cancer under age 50 in maternal aunt. Benign stereotatic loc for ea lesion of the left breast, September 12, 2015. Digital Woman Screen Mammo: August 02, 2019 - Exam #: [id number] Bilateral CC and MLO view(s) were taken. Technologist: Ora Gaviria, Technologist Prior study comparison: September 24, 2017, bilateral digital woman screen mammo performed at [facility]. August 06, 2015, digital woman screen mammo performed at [facility]. June 27, 2014, digital woman screen mammo performed at [facility]. FINDINGS: There are scattered fibroglandular densities. The Volpara volumetric breast density category is:B. A needle biopsy marker clip is again noted and 12 o'clock position of the left breast biopsy site. No progressive changes. There has been no change in the appearance of the mammogram from the prior studies. There is a mild amount of scattered fibroglandular density which is fairly symmetric. There is no interval development of dominant mass, architectural distortion, or grouped microcalcification suggestive of malignancy. 3-D tomosynthesis shows no additional findings. Assessment: BI-RADS/ACR category 2 mammogram. Benign Findings. Recommendation Routine screening mammogram of both breasts in 1 year (for women over age 40). This patient's Lifetime Breast Cancer Risk is estimated at 4.7 %. This mammogram was interpreted with the aid of an FDA-approved computer-aided dectection system. Electronically Signed By: Cody Jules MD 08/02/19 [id number]
== END ==
LOC: M WHC 11:40
PROVIDERS: ATTEND Nurse Practitioner Family
DX: Z12.31 Encounter for screening mammogram for malignant neoplasm of breast (principal); Z86.018 Personal history of other benign neoplasm; R30.0 Dysuria

== ENCOUNTER → 2019-08-02 | Outpatient (REF) | payer MEDICARE ==
[~2019-08-02] MED LIST changes: -ACET650T61 PO; -D31000TA2 PO; -PANT40TA29 PO; +PANT40TA3 PO; +TYLE650T35 PO; +VITAD1000T PO
== END ==
LOC: M SFHCWAGY 15:10
PROVIDERS: ATTEND Nurse Practitioner Family
DX: R30.0 Dysuria (principal)

== ENCOUNTER → 2019-10-12 | Outpatient (REF) | payer MEDICARE ==
[~2019-10-12] MED LIST changes: +ACET650T61 PO; +D31000TA2 PO; +PANT40TA29 PO; -PANT40TA3 PO; -TYLE650T35 PO; -VITAD1000T PO
[2019-10-12 18:27] LABS: PERCENT SATURATION 24.7 % (13.2-45.0)
[2019-10-12 18:39] LABS: HEMATOCRIT 42.1 % (36.0-47.0); MEAN CORPUSCULAR HGB CONC 33.3 g/dl (32.0-36.5); MEAN CORPUSCULAR VOLUME 90.1 fl (80.0-96.0); PLATELET COUNT, AUTOMATED 238 10^3/uL (150-450); RED BLOOD COUNT 4.67 10^6/uL (4.00-5.40); WHITE BLOOD COUNT 4.6 10^3/uL (4.0-10.0)
== END ==
LOC: M LABDRWAD 17:16
PROVIDERS: ATTEND Family Medicine
DX: D50.9 Iron deficiency anemia, unspecified (principal)

== ENCOUNTER → 2020-07-17 | Outpatient (CLI) | payer MEDICARE ==
[~2020-07-17] MED LIST changes: -LISI-538 PO; +LISI20TA33 PO
[2020-07-17 17:07] LABS: HEMATOCRIT 40.8 % (36.0-47.0); HEMOGLOBIN 13.2 g/dl (12.0-15.5); MEAN CORPUSCULAR HEMOGLOBIN 30.3 pg (27.0-33.0); MEAN CORPUSCULAR HGB CONC 32.4 g/dl (32.0-36.5); MEAN CORPUSCULAR VOLUME 93.6 fl (80.0-96.0); PLATELET COUNT, AUTOMATED 237 10^3/uL (150-450); RED BLOOD COUNT 4.36 10^6/uL (4.00-5.40); WHITE BLOOD COUNT 5.4 10^3/uL (4.0-10.0)
[2020-07-17 17:32] LABS: ALBUMIN 4.2 GM/DL (3.2-5.2); ALT/SGPT 22 U/L (12-78); BILIRUBIN,TOTAL 0.5 MG/DL (0.2-1.0); BLOOD UREA NITROGEN 13 MG/DL (7-18); CALCIUM LEVEL 9.3 MG/DL (8.8-10.2); CARBON DIOXIDE LEVEL 31 MEQ/L (21-32); CHLORIDE LEVEL 109 MEQ/L (98-107); CHOLESTEROL LEVEL 199 MG/DL (<200); CHOLESTEROL RISK RATIO 2.518 (<5); CREATININE FOR GFR 0.77 MG/DL (0.55-1.30); FERRITIN 35 NG/ML (8-252); FREE T4 1.17 NG/DL (0.76-1.46); GLOMERULAR FILTRATION RATE > 60.0 (>39); GLUCOSE, FASTING 107 MG/DL (70-100); HDL CHOLESTEROL 79 MG/DL (>40); IRON (FE) 84 UG/DL (50-170); LDL CHOLESTEROL 102 MG/DL (<100); NON-HDL-C 120 MG/DL; PERCENT SATURATION 25.5 % (13.2-45.0); POTASSIUM SERUM 3.9 MEQ/L (3.5-5.1); SODIUM LEVEL 144 MEQ/L (136-145); TOTAL IRON BINDING CAPACITY 330 UG/DL (250-450); TOTAL PROTEIN 7.2 GM/DL (6.4-8.2); TRIGLYCERIDES LEVEL 89 MG/DL (<150)
[2020-07-17 18:56] LABS: HEMOGLOBIN A1c 5.6 %
== END ==
LOC: M WUC 12:45
PROVIDERS: ATTEND Family Medicine
DX: K25.3 Acute gastric ulcer without hemorrhage or perforation (principal); D50.8 Other iron deficiency anemias; R73.01 Impaired fasting glucose; I11.9 Hypertensive heart disease without heart failure; E78.2 Mixed hyperlipidemia

== ENCOUNTER → 2020-08-12 | Outpatient (CLI) | payer MEDICARE ==
[~2020-08-12] MED LIST changes: +OMEP40CA4 PO; -OMEP40CA97 PO
--- NOTE | 2020-08-12 16:32 | REPMRS ---
Patient History The patient states she had a clinical breast exam in July 2020. Family history of ovarian cancer under age 50 in maternal aunt. Benign stereotatic loc for ea lesion of the left breast, September 12, 2015. 40 lb intentional weight loss. covid vaccine 03/13/20 left arm. 04/16/20 left arm. Patient states no breast complaints today. Patient has signed MRS History Sheet. Digital Woman Screen Mammo: August 12, 2020 - Exam #: [id number] Bilateral CC and MLO view(s) were taken. Technologist: RT Ritu Prior study comparison: August 02, 2019, bilateral digital woman screen mammo performed at [facility]. September 24, 2017, bilateral digital woman screen mammo performed at [facility]. FINDINGS: There are scattered fibroglandular densities. Screening. Digital screening (2D) mammography was performed bilaterally in the CC and MLO projections. Additionally, breast tomosynthesis (3D mammography) was performed bilaterally in the CC and MLO projections. Todays exam was compared to the prior exam/exams. By history, the patient has no complaints of a palpable breast abnormality or other significant breast complaints. The breasts are unchanged in size and shape. There are no ousmane-soft tissue densities or spiculated masses. There is no internal architectural distortion.Once again, stable benign appearing calcifications are seen. There are no suspicious ousmane-calcific clusters. Skin thickening or nipple retraction is not present. IMPRESSION: BI-RADS Category 2- Benign Findings. There is no evidence of malignant alteration of the breasts. Followup examination recommended in one year. The Volpara volumetric breast density category is B, there are scattered areas of fibroglandular densities. This mammogram was read with the assistance of [employer],an FDA approved computer aided detection system for mammography. The lifetime Tyrer-Cuzick score is 4.3 % Negative x-ray reports should not delay surgical consultation if a dominant or clinically suspicious mass is present. Not all breast cancers can be identified by mammography. Therefore, we recommend that you continue to perform regular breast self-examination and physical examination and then promptly contact your physician of any concerns or changes. Adenosis and dense breasts may obscure an underlying neoplasm. Assessment: BI-RADS/ACR category 2 mammogram. Benign Findings. Recommendation Routine screening mammogram of both breasts in 1 year. Electronically Signed By: Devyn Rubio DO 08/12/20 [id number]
== END ==
LOC: M WHC 14:54
PROVIDERS: ATTEND Nurse Practitioner Women's Health
DX: Z12.31 Encounter for screening mammogram for malignant neoplasm of breast (principal); Z86.018 Personal history of other benign neoplasm; R92.1 Mammographic calcification found on diagnostic imaging of breast

== ENCOUNTER → 2020-08-12 | Outpatient (CLI) | payer MEDICARE ==
--- NOTE | 2020-08-12 16:54 | DEXAMM ---
INDICATION: M85.80 OSTEOPENIA. COMPARISON: Most recent comparison densitometry study is from June 27, 2014. The most remote is dated July 11, 1999.. TECHNIQUE: Bone density was measured using dual-energy x-ray absorptionmetry (DEXA). FINDINGS: AP SPINE L1-L4 BMD 1.031 g/cm2 Young Adult T-Score -1.2 Age Matched Z-Score 0.5. LT FEMUR, TOTAL BMD 0.661 g/cm2 Young Adult T-Score -2.7 Age Matched Z-Score -1.0. LT NECK BMD 0.623 g/cm2 Young Adult T-Score -3.0 Age Matched Z-Score -1.0. RT FEMUR, TOTAL BMD 0.679 g/cm2 Young Adult T-Score -2.6 Age Matched Z-Score -0.8. RT NECK BMD 0.665 g/cm2 Young Adult T-Score -2.7 Age Matched Z-Score -0.7. IMPRESSION: There is low bone density of the spine. There is osteoporosis of the left hip. There is osteoporosis of the right hip. The density of the spine has increased 21.2% since the initial exam on July 11, 1999. The density of the spine increased 3.9% since most recent exam on June 27, 2014. The density of the left hip has decreased 13.5% since initial exam on July 11, 1999. The density of the left hip has decreased 10.7% since most recent exam on June 27, 2014. The density of the right hip has decreased 15.9% since the initial exam on July 11, 1999. The density of the right hip has decreased 13.5% since the most recent exam on June 27, 2014. FOLLOW-UP: Recommendation for the next bone density exam: 2 years. <Electronically signed by Cody Jules > 08/12/20 [id number]
== END ==
LOC: M WHC 14:57
PROVIDERS: ATTEND Family Medicine
DX: M85.88 Other specified disorders of bone density and structure, other site (principal)

== ENCOUNTER → 2020-10-14 | Outpatient (CLI) | payer MEDICARE ==
[2020-10-14 16:43] LABS: HEMATOCRIT 40.5 % (36.0-47.0); HEMOGLOBIN 13.3 g/dl (12.0-15.5); MEAN CORPUSCULAR HEMOGLOBIN 29.4 pg (27.0-33.0); MEAN CORPUSCULAR HGB CONC 32.8 g/dl (32.0-36.5); MEAN CORPUSCULAR VOLUME 89.4 fl (80.0-96.0); PLATELET COUNT, AUTOMATED 215 10^3/uL (150-450); RED BLOOD COUNT 4.53 10^6/uL (4.00-5.40); WHITE BLOOD COUNT 5.2 10^3/uL (4.0-10.0)
[2020-10-14 17:04] LABS: BLOOD UREA NITROGEN 14 MG/DL (7-18); CALCIUM LEVEL 9.1 MG/DL (8.8-10.2); CARBON DIOXIDE LEVEL 38 MEQ/L (21-32); CHLORIDE LEVEL 101 MEQ/L (98-107); FERRITIN 31 NG/ML (8-252); GLOMERULAR FILTRATION RATE > 60.0 (>39); GLUCOSE, FASTING 115 MG/DL (70-100); IRON (FE) 71 UG/DL (50-170); PERCENT SATURATION 21.9 % (13.2-45.0); POTASSIUM SERUM 3.2 MEQ/L (3.5-5.1); SODIUM LEVEL 143 MEQ/L (136-145); TOTAL IRON BINDING CAPACITY 324 UG/DL (250-450)
== END ==
LOC: M WUC 14:56
PROVIDERS: ATTEND Family Medicine
DX: K92.2 Gastrointestinal hemorrhage, unspecified (principal); D62 Acute posthemorrhagic anemia; I11.9 Hypertensive heart disease without heart failure

== ENCOUNTER → 2021-02-04 | Outpatient (CLI) | payer MEDICARE ==
[2021-02-04 11:01] LABS: HEMATOCRIT 41.8 % (36.0-47.0); HEMOGLOBIN 14.1 g/dl (12.0-15.5); MEAN CORPUSCULAR HGB CONC 33.7 g/dl (32.0-36.5); MEAN CORPUSCULAR VOLUME 88.9 fl (80.0-96.0); PLATELET COUNT, AUTOMATED 240 10^3/uL (150-450); WHITE BLOOD COUNT 5.6 10^3/uL (4.0-10.0)
[2021-02-04 11:47] LABS: ALBUMIN 4.4 GM/DL (3.2-5.2); ALT/SGPT 16 U/L (12-78); BILIRUBIN,TOTAL 0.6 MG/DL (0.2-1.0); BLOOD UREA NITROGEN 14 MG/DL (7-18); CALCIUM LEVEL 9.5 MG/DL (8.8-10.2); CARBON DIOXIDE LEVEL 34 MEQ/L (21-32); CHLORIDE LEVEL 104 MEQ/L (98-107); CHOLESTEROL LEVEL 191 MG/DL (<200); CREATININE FOR GFR 0.83 MG/DL (0.55-1.30); FERRITIN 42 NG/ML (8-252); GLOMERULAR FILTRATION RATE > 60.0 (>39); GLUCOSE, FASTING 113 MG/DL (70-100); HDL CHOLESTEROL 77 MG/DL (>40); IRON (FE) 100 UG/DL (50-170); LDL CHOLESTEROL 95 MG/DL (<100); NON-HDL-C 114 MG/DL; PERCENT SATURATION 29.6 % (13.2-45.0); POTASSIUM SERUM 3.1 MEQ/L (3.5-5.1); PTH INTACT 93.3 PG/ML (18.5-88.0); SODIUM LEVEL 145 MEQ/L (136-145); TOTAL 25(OH) VITAMIN D 36.6 NG/ML (30.0-100.0); TOTAL IRON BINDING CAPACITY 338 UG/DL (250-450); TOTAL PROTEIN 7.4 GM/DL (6.4-8.2); TRIGLYCERIDES LEVEL 96 MG/DL (<150)
== END ==
LOC: M PLALAB 08:32
PROVIDERS: ATTEND Family Medicine
DX: M81.0 Age-related osteoporosis without current pathological fracture (principal); E55.9 Vitamin D deficiency, unspecified; D50.8 Other iron deficiency anemias; E78.2 Mixed hyperlipidemia

== ENCOUNTER → 2021-05-15 | Outpatient (CLI) | payer MEDICARE ==
[~2021-05-15] MED LIST changes: -D31000TA2 PO; +VITA100093 PO
[2021-05-15 11:08] LABS: ALBUMIN 4.2 GM/DL (3.2-5.2); BLOOD UREA NITROGEN 22 MG/DL (7-18); CALCIUM LEVEL 9.4 MG/DL (8.8-10.2); CARBON DIOXIDE LEVEL 30 MEQ/L (21-32); CHLORIDE LEVEL 106 MEQ/L (98-107); CREATININE FOR GFR 0.84 MG/DL (0.55-1.30); GLOMERULAR FILTRATION RATE > 60.0 (>39); GLUCOSE, FASTING 101 MG/DL (70-100); MAGNESIUM LEVEL 2.1 MG/DL (1.8-2.4); PHOSPHORUS LEVEL 4.5 MG/DL (2.5-4.9); POTASSIUM SERUM 3.6 MEQ/L (3.5-5.1); PTH INTACT 66.4 PG/ML (18.5-88.0); SODIUM LEVEL 142 MEQ/L (136-145)
== END ==
LOC: M PLALAB 09:05
PROVIDERS: ATTEND Family Medicine
DX: E87.6 Hypokalemia (principal); E34.9 Endocrine disorder, unspecified; M81.0 Age-related osteoporosis without current pathological fracture

== ENCOUNTER → 2021-10-08 | Outpatient (CLI) | payer MEDICARE | LOC: M WHC 13:10 | PROVIDERS: ATTEND Nurse Practitioner Family | DX: Z12.31 Encounter for screening mammogram for malignant neoplasm of breast (principal) ==

== ENCOUNTER → 2021-11-11 | Outpatient (CLI) | payer MEDICARE ==
[2021-11-11 13:59] LABS: HEMOGLOBIN 12.8 g/dl (12.0-15.5); MEAN CORPUSCULAR HEMOGLOBIN 31.3 pg (27.0-33.0); MEAN CORPUSCULAR HGB CONC 33.7 g/dl (32.0-36.5); MEAN CORPUSCULAR VOLUME 92.9 fl (80.0-96.0); PLATELET COUNT, AUTOMATED 240 10^3/uL (150-450); RED BLOOD COUNT 4.09 10^6/uL (4.00-5.40); WHITE BLOOD COUNT 5.8 10^3/uL (4.0-10.0)
[2021-11-11 14:44] LABS: ALBUMIN 4.4 GM/DL (3.2-5.2); BILIRUBIN,TOTAL 0.4 MG/DL (0.2-1.0); CALCIUM LEVEL 9.4 MG/DL (8.8-10.2); CHOLESTEROL RISK RATIO 2.388 (<5); CREATININE FOR GFR 1.02 MG/DL (0.55-1.30); FREE T4 1.12 NG/DL (0.76-1.46); GLOMERULAR FILTRATION RATE 55.9 (>39); PERCENT SATURATION 24.3 % (13.2-45.0); POTASSIUM SERUM 3.6 MEQ/L (3.5-5.1); THYROID STIMULATING HORMONE 0.954 uIU/ML (0.358-3.740); TOTAL PROTEIN 7.5 GM/DL (6.4-8.2)
[2021-11-11 15:06] LABS: TOTAL 25(OH) VITAMIN D 32.8 NG/ML (30.0-100.0)
== END ==
LOC: M PLALAB 09:35
PROVIDERS: ATTEND Family Medicine
DX: I11.9 Hypertensive heart disease without heart failure (principal); E78.2 Mixed hyperlipidemia; D50.8 Other iron deficiency anemias; E55.9 Vitamin D deficiency, unspecified; Z79.899 Other long term (current) drug therapy

== ENCOUNTER → 2022-03-05 | Outpatient (CLI) | payer MEDICARE ==
[2022-03-05 11:05] LABS: HEMOGLOBIN 10.9 g/dl (12.0-15.5); MEAN CORPUSCULAR HEMOGLOBIN 28.7 pg (27.0-33.0); MEAN CORPUSCULAR HGB CONC 32.1 g/dl (32.0-36.5); MEAN CORPUSCULAR VOLUME 89.5 fl (80.0-96.0); PLATELET COUNT, AUTOMATED 232 10^3/uL (150-450); WHITE BLOOD COUNT 5.2 10^3/uL (4.0-10.0)
[2022-03-05 11:45] LABS: FERRITIN 8.9 NG/ML (7.3-270.7)
[2022-03-05 11:46] LABS: BLOOD UREA NITROGEN 13 MG/DL (9-23); CALCIUM LEVEL 9.5 MG/DL (8.3-10.6); CARBON DIOXIDE LEVEL 32 MMOL/L (20-31); CHLORIDE LEVEL 106 MMOL/L (98-107); CREATININE FOR GFR 0.93 MG/DL (0.55-1.30); GLOMERULAR FILTRATION RATE > 60.0 (>39); GLUCOSE, FASTING 111 MG/DL (74-106); IRON (FE) 48 UG/DL (50-170); PERCENT SATURATION 12.6 % (13.2-45.0); POTASSIUM SERUM 3.4 MMOL/L (3.5-5.1); SODIUM LEVEL 146 MMOL/L (136-145); TOTAL IRON BINDING CAPACITY 381 UG/DL (250-425)
[2022-03-05 12:06] LABS: HEMOGLOBIN A1c 5.2 % (4.0-6.0)
== END ==
LOC: M PLALAB 08:56
PROVIDERS: ATTEND Family Medicine
DX: D50.8 Other iron deficiency anemias (principal); R73.01 Impaired fasting glucose

== ENCOUNTER → 2022-03-20 | Outpatient (REF) | payer MEDICARE ==
[2022-03-20 16:51] LABS: CALCIUM LEVEL 9.8 MG/DL (8.3-10.6); CREATININE FOR GFR 0.96 MG/DL (0.55-1.30); POTASSIUM SERUM 3.7 MMOL/L (3.5-5.1)
== END ==
LOC: M SFHCADAM 14:37
PROVIDERS: ATTEND Family Medicine
DX: Z01.818 Encounter for other preprocedural examination (principal); I11.9 Hypertensive heart disease without heart failure

== ENCOUNTER → 2022-04-27 | Outpatient (REF) | payer MEDICARE ==
[2022-04-27 15:40] LABS: CALCIUM LEVEL 8.8 MG/DL (8.3-10.6); CREATININE FOR GFR 1.21 MG/DL (0.55-1.30); GLOMERULAR FILTRATION RATE 45.8 (>39); POTASSIUM SERUM 3.7 MMOL/L (3.5-5.1)
== END ==
LOC: M SFHCADAM 11:40
PROVIDERS: ATTEND Physician Assistant
DX: R60.0 Localized edema (principal)

== ENCOUNTER → 2022-05-11 | Outpatient (CLI) | payer MEDICARE | LOC: M LABSMTC 10:46 | DX: Z01.812 Encounter for preprocedural laboratory examination (principal) ==

== ENCOUNTER → 2022-05-11 | Outpatient (CLI) | payer MEDICARE ==
[2022-05-11 15:07] LABS: CALCIUM LEVEL 9.5 MG/DL (8.3-10.6); CREATININE FOR GFR 1.15 MG/DL (0.55-1.30); GLOMERULAR FILTRATION RATE 48.6 (>39)
== END ==
LOC: M PLALAB 10:24
PROVIDERS: ATTEND Ophthalmology
DX: C44.1122 Basal cell carcinoma of skin of right lower eyelid, including canthus (principal)

== ENCOUNTER → 2022-07-03 | Outpatient (CLI) | payer MEDICARE ==
[~2022-07-03] MED LIST changes: -ASPE16CR TOP; +LIDO76.52 TOP
[2022-07-03 16:16] LABS: BASO % 0.6 % (0.0-1.0); EOS # 0.1 10^3/uL (0.0-0.5); EOS % 1.3 % (0.0-3.0); LYMPH # 0.7 10^3/uL (1.5-5.0); LYMPH % 12.7 % (24.0-44.0); MEAN CORPUSCULAR HEMOGLOBIN 28.7 pg (27.0-33.0); MEAN CORPUSCULAR HGB CONC 32.3 g/dl (32.0-36.5); MEAN CORPUSCULAR VOLUME 88.8 fl (80.0-96.0); MONO # 0.4 10^3/uL (0.0-0.8); NEUTROPHILS # 4.3 10^3/uL (1.5-8.5); PLATELET COUNT, AUTOMATED 232 10^3/uL (150-450); RED BLOOD COUNT 3.49 10^6/uL (4.00-5.40); WHITE BLOOD COUNT 5.4 10^3/uL (4.0-10.0)
[2022-07-03 16:36] LABS: HEMOGLOBIN A1c 5.9 % (4.0-6.0)
[2022-07-03 16:47] LABS: BILIRUBIN,TOTAL 0.4 MG/DL (0.3-1.2); CALCIUM LEVEL 9.2 MG/DL (8.3-10.6); CHOLESTEROL RISK RATIO 2.79 (<5); CREATININE FOR GFR 1.54 MG/DL (0.55-1.30); GLOMERULAR FILTRATION RATE 34.7 (>39); HDL CHOLESTEROL 51.6 MG/DL (>40); NON-HDL-C 92.4 MG/DL; POTASSIUM SERUM 4.7 MMOL/L (3.5-5.1); TOTAL PROTEIN 6.8 G/DL (5.7-8.2)
[2022-07-03 16:53] LABS: TOTAL 25(OH) VITAMIN D 35.3 NG/ML (20.0-100.0)
== END ==
LOC: M PLALAB 12:50
PROVIDERS: ATTEND Physician Assistant
DX: I11.9 Hypertensive heart disease without heart failure (principal); I48.91 Unspecified atrial fibrillation; D50.0 Iron deficiency anemia secondary to blood loss (chronic); D50.8 Other iron deficiency anemias; E55.9 Vitamin D deficiency, unspecified; E78.2 Mixed hyperlipidemia; Z79.899 Other long term (current) drug therapy

== ENCOUNTER 2022-08-23 21:22 | Inpatient (IN) | payer MEDICARE ==
[~2022-08-23] VITALS: Ht 157.5 cm; Wt 91.2 kg
[2022-08-23 23:00] LABS: BASO % 0.3 % (0.0-1.0); EOS % 0.3 % (0.0-3.0); LYMPH # 0.6 10^3/uL (1.5-5.0); LYMPH % 8.5 % (24.0-44.0); MEAN CORPUSCULAR HEMOGLOBIN 30.2 pg (27.0-33.0); MEAN CORPUSCULAR HGB CONC 30.9 g/dl (32.0-36.5); MEAN CORPUSCULAR VOLUME 97.6 fl (80.0-96.0); MONO # 0.4 10^3/uL (0.0-0.8); MONO % 5.2 % (2.0-8.0); NEUTROPHILS # 6.2 10^3/uL (1.5-8.5); NEUTROPHILS % 85.3 % (36.0-66.0); PLATELET COUNT, AUTOMATED 237 10^3/uL (150-450); RED BLOOD COUNT 2.12 10^6/uL (4.00-5.40); WHITE BLOOD COUNT 7.3 10^3/uL (4.0-10.0)
[2022-08-23 23:11] LABS: HEMOGLOBIN 6.4 g/dl (12.0-15.5)
[2022-08-23 23:12] LABS: HEMATOCRIT 20.7 % (36.0-47.0)
[2022-08-23 23:20] LABS: LIPASE 33 U/L (12-53)
[2022-08-23 23:22] LABS: ALBUMIN 3.1 G/DL (3.2-5.2); ALKALINE PHOSPHATASE 68 U/L (46-116); ALT/SGPT < 9 U/L (7.0-40); AST/SGOT < 8 U/L (<34); BILIRUBIN,DIRECT 0.1 MG/DL (<0.4); BILIRUBIN,TOTAL 0.4 MG/DL (0.3-1.2); BLOOD UREA NITROGEN 43 MG/DL (9-23); CALCIUM LEVEL 7.7 MG/DL (8.3-10.6); CARBON DIOXIDE LEVEL 25 MMOL/L (20-31); CHLORIDE LEVEL 111 MMOL/L (98-107); CK-MB VALUE MASS < 1.0 NG/ML (<3.6); CPK CREATINE PHOSPHOKINASE 106 U/L (34-145); CREATININE FOR GFR 0.76 MG/DL (0.55-1.30); GLOMERULAR FILTRATION RATE > 60.0 (>39); GLUCOSE, FASTING 139 MG/DL (74-106); MB/CK RELATIVE INDEX 0.94 (< OR =4); POTASSIUM SERUM 3.9 MMOL/L (3.5-5.1); SODIUM LEVEL 145 MMOL/L (136-145); TOTAL PROTEIN 5.4 G/DL (5.7-8.2)
[2022-08-23 23:47] LABS: INR 1.1; PROTHROMBIN TIME 14.4 SECONDS (12.5-14.5)
[2022-08-24] VITALS (16 sets, daily range): BP systolic 138–188; BP diastolic 65–88; TEMP 97.1–99.3; O2SAT 96–100
[2022-08-24 00:21] LABS: CK-MB VALUE MASS < 1.0 NG/ML (<3.6)
[2022-08-24 00:22] LABS: CPK CREATINE PHOSPHOKINASE 98 U/L (34-145); MB/CK RELATIVE INDEX 1.02 (< OR =4)
[2022-08-24] MEDS ORDERED: PANTOPRAZOLE SODIUM 40 MG in D5W 50 ML IV SCH (00:45)
[2022-08-24] MEDS ORDERED: MOM 30ML SUSPENSION UDC PO PRN (01:25)
[2022-08-24] MEDS ORDERED: AMLO1TAB24 PO (01:44)
[2022-08-24] MEDS ORDERED: FERR1TAB8 PO (01:44)
[2022-08-24] MEDS ORDERED: METO1TAB87 PO (01:44)
[2022-08-24] MEDS ORDERED: SUCR1TAB56 PO (01:44)
[2022-08-24] MEDS ORDERED: LISI40TA4 PO (01:44)
[2022-08-24] MEDS ORDERED: SPIR-10 PO (01:44)
[2022-08-24] MEDS ORDERED: PANT-23 PO (01:44)
[2022-08-24] MEDS ORDERED: B-122500 PO (01:48)
[2022-08-24] MEDS ORDERED: HOME MED LIST COMPLETE! XX SCH (01:50)
[2022-08-24 06:10] LABS: ALBUMIN 2.8 G/DL (3.2-5.2); ALKALINE PHOSPHATASE 56 U/L (46-116); ALT/SGPT < 9 U/L (7.0-40); AST/SGOT < 8 U/L (<34); BLOOD UREA NITROGEN 49 MG/DL (9-23); CALCIUM LEVEL 7.7 MG/DL (8.3-10.6); CARBON DIOXIDE LEVEL 26 MMOL/L (20-31); CHLORIDE LEVEL 114 MMOL/L (98-107); CREATININE FOR GFR 0.76 MG/DL (0.55-1.30); GLOMERULAR FILTRATION RATE > 60.0 (>39); GLUCOSE, FASTING 123 MG/DL (74-106); POTASSIUM SERUM 3.8 MMOL/L (3.5-5.1); SODIUM LEVEL 148 MMOL/L (136-145); TOTAL PROTEIN 4.7 G/DL (5.7-8.2)
[2022-08-24] MEDS: PANTOPRAZOLE 40MG VIAL IV SCH ×2 (08:48→20:29)
[2022-08-24] MEDS: lisinopriL 40MG TAB PO SCH (08:48)
[2022-08-24] MEDS: SUCRALFATE 1 GM TAB PO SCH ×4 (08:48→20:28)
[2022-08-24] MEDS: amLODIPine 5 MG TAB PO SCH (08:48)
[2022-08-24] MEDS: ATORVASTATIN 10 MG TAB PO SCH (08:48)
[2022-08-24] MEDS: METOPROLOL TART 25 MG TABLET PO SCH ×2 (08:49→20:29)
[2022-08-24 10:29] LABS: HEMATOCRIT 30.9 % (36.0-47.0); MEAN CORPUSCULAR HEMOGLOBIN 29.9 pg (27.0-33.0); MEAN CORPUSCULAR HGB CONC 32.4 g/dl (32.0-36.5); MEAN CORPUSCULAR VOLUME 92.2 fl (80.0-96.0); PLATELET COUNT, AUTOMATED 206 10^3/uL (150-450); RED BLOOD COUNT 3.35 10^6/uL (4.00-5.40); WHITE BLOOD COUNT 8.2 10^3/uL (4.0-10.0)
[2022-08-24 14:41] LABS: HEMATOCRIT 28.3 % (36.0-47.0); HEMOGLOBIN 9.3 g/dl (12.0-15.5)
[2022-08-24 16:33] LABS: HEMATOCRIT 26.5 % (36.0-47.0); HEMOGLOBIN 8.7 g/dl (12.0-15.5); MEAN CORPUSCULAR HEMOGLOBIN 29.6 pg (27.0-33.0); MEAN CORPUSCULAR HGB CONC 32.8 g/dl (32.0-36.5); MEAN CORPUSCULAR VOLUME 90.1 fl (80.0-96.0); PLATELET COUNT, AUTOMATED 182 10^3/uL (150-450); RED BLOOD COUNT 2.94 10^6/uL (4.00-5.40); WHITE BLOOD COUNT 7.8 10^3/uL (4.0-10.0)
[2022-08-24] MEDS: SPIRONOLACTONE 25 MG TAB PO SCH (20:28)
[2022-08-24 22:13] LABS: HEMATOCRIT 24.9 % (36.0-47.0); HEMOGLOBIN 8.4 g/dl (12.0-15.5); MEAN CORPUSCULAR HEMOGLOBIN 30.1 pg (27.0-33.0); MEAN CORPUSCULAR HGB CONC 33.7 g/dl (32.0-36.5); MEAN CORPUSCULAR VOLUME 89.2 fl (80.0-96.0); PLATELET COUNT, AUTOMATED 159 10^3/uL (150-450); RED BLOOD COUNT 2.79 10^6/uL (4.00-5.40); WHITE BLOOD COUNT 7.5 10^3/uL (4.0-10.0)
[2022-08-24] MEDS ORDERED: ACETAMINOPHEN TAB 650MG DOSE (2X325MG) PO PRN (23:20)
[2022-08-25] VITALS (8 sets, daily range): BP systolic 148–170; BP diastolic 64–82; TEMP 97.1–98.6; O2SAT 96–98
[2022-08-25 04:26] LABS: HEMATOCRIT 25.1 % (36.0-47.0); HEMOGLOBIN 8.2 g/dl (12.0-15.5); MEAN CORPUSCULAR HEMOGLOBIN 29.4 pg (27.0-33.0); MEAN CORPUSCULAR HGB CONC 32.7 g/dl (32.0-36.5); PLATELET COUNT, AUTOMATED 165 10^3/uL (150-450); RED BLOOD COUNT 2.79 10^6/uL (4.00-5.40); WHITE BLOOD COUNT 6.4 10^3/uL (4.0-10.0)
[2022-08-25] MEDS: D5W/0.45% SODIUM CHLORIDE 1,000 ML IV SCH ×2 (06:55→18:46)
[2022-08-25] MEDS ORDERED: PREVNAR-20 VACCINE 0.5ML SYRINGE IM.IMMUN ONE (09:00)
[2022-08-25] MEDS: PANTOPRAZOLE 40MG VIAL IV SCH ×2 (09:18→22:15)
[2022-08-25] MEDS: ATORVASTATIN 10 MG TAB PO SCH (09:18)
[2022-08-25] MEDS: METOPROLOL TART 25 MG TABLET PO SCH ×2 (09:18→22:15)
[2022-08-25] MEDS: lisinopriL 40MG TAB PO SCH (09:19)
[2022-08-25] MEDS: amLODIPine 5 MG TAB PO SCH (09:19)
[2022-08-25] MEDS: SUCRALFATE 1 GM TAB PO SCH ×4 (09:28→22:14)
[2022-08-25 15:48] LABS: ALBUMIN 3.2 G/DL (3.2-5.2); ALKALINE PHOSPHATASE 59 U/L (46-116); ALT/SGPT < 9 U/L (7.0-40); AST/SGOT 18 U/L (<34); BILIRUBIN,TOTAL 0.6 MG/DL (0.3-1.2); BLOOD UREA NITROGEN 14 MG/DL (9-23); CALCIUM LEVEL 8.1 MG/DL (8.3-10.6); CARBON DIOXIDE LEVEL 28 MMOL/L (20-31); CHLORIDE LEVEL 111 MMOL/L (98-107); CREATININE FOR GFR 0.69 MG/DL (0.55-1.30); GLOMERULAR FILTRATION RATE > 60.0 (>39); GLUCOSE, FASTING 117 MG/DL (74-106); POTASSIUM SERUM 3.6 MMOL/L (3.5-5.1); SODIUM LEVEL 146 MMOL/L (136-145); TOTAL PROTEIN 5.2 G/DL (5.7-8.2)
[2022-08-25] MEDS: FERROUS SULFATE 325MG TAB PO SCH (18:23)
[2022-08-25] MEDS: SPIRONOLACTONE 25 MG TAB PO SCH (22:14)
[2022-08-26] VITALS (15 sets, daily range): BP systolic 128–162; BP diastolic 61–72; TEMP 96.8–98.4; O2SAT 95–100
[2022-08-26] MEDS ORDERED: ONDANSETRON 4MG TAB PO ONE (02:00)
[2022-08-26 05:51] LABS: HEMATOCRIT 23.4 % (36.0-47.0); HEMOGLOBIN 7.6 g/dl (12.0-15.5); MEAN CORPUSCULAR HEMOGLOBIN 29.8 pg (27.0-33.0); MEAN CORPUSCULAR HGB CONC 32.5 g/dl (32.0-36.5); MEAN CORPUSCULAR VOLUME 91.8 fl (80.0-96.0); PLATELET COUNT, AUTOMATED 157 10^3/uL (150-450); RED BLOOD COUNT 2.55 10^6/uL (4.00-5.40); WHITE BLOOD COUNT 6.1 10^3/uL (4.0-10.0)
[2022-08-26 06:28] LABS: ALBUMIN 2.8 G/DL (3.2-5.2); ALKALINE PHOSPHATASE 57 U/L (46-116); ALT/SGPT < 9 U/L (7.0-40); AST/SGOT 9 U/L (<34); BILIRUBIN,TOTAL 0.5 MG/DL (0.3-1.2); BLOOD UREA NITROGEN 8 MG/DL (9-23); CALCIUM LEVEL 7.6 MG/DL (8.3-10.6); CARBON DIOXIDE LEVEL 27 MMOL/L (20-31); CHLORIDE LEVEL 111 MMOL/L (98-107); CREATININE FOR GFR 0.65 MG/DL (0.55-1.30); GLOMERULAR FILTRATION RATE > 60.0 (>39); GLUCOSE, FASTING 125 MG/DL (74-106); POTASSIUM SERUM 3.2 MMOL/L (3.5-5.1); SODIUM LEVEL 147 MMOL/L (136-145); TOTAL PROTEIN 4.7 G/DL (5.7-8.2)
[2022-08-26] MEDS ORDERED: POTASSIUM CHLORIDE 10MEQ SR TABLET PO ONE (08:00)
[2022-08-26] MEDS: PANTOPRAZOLE 40MG VIAL IV SCH ×2 (08:49→20:12)
[2022-08-26] MEDS: FERROUS SULFATE 325MG TAB PO SCH (08:50)
[2022-08-26] MEDS: ATORVASTATIN 10 MG TAB PO SCH (08:50)
[2022-08-26] MEDS: lisinopriL 40MG TAB PO SCH (08:52)
[2022-08-26] MEDS: METOPROLOL TART 25 MG TABLET PO SCH ×2 (08:53→20:13)
[2022-08-26] MEDS: amLODIPine 5 MG TAB PO SCH (08:53)
[2022-08-26] MEDS: SUCRALFATE 1 GM TAB PO SCH ×4 (09:03→20:13)
[2022-08-26] MEDS: D5W/0.2% SODIUM CHLORIDE 1,000 ML IV SCH ×2 (10:33→20:14)
[2022-08-26 16:47] LABS: BLOOD UREA NITROGEN 8 MG/DL (9-23); CALCIUM LEVEL 8.9 MG/DL (8.3-10.6); CARBON DIOXIDE LEVEL 26 MMOL/L (20-31); CHLORIDE LEVEL 109 MMOL/L (98-107); GLOMERULAR FILTRATION RATE > 60.0 (>39); GLUCOSE, FASTING 114 MG/DL (74-106); POTASSIUM SERUM 3.4 MMOL/L (3.5-5.1); SODIUM LEVEL 145 MMOL/L (136-145)
[2022-08-26] MEDS: SPIRONOLACTONE 25 MG TAB PO SCH (20:13)
[2022-08-27 04:50] VITALS: BP 153/69; TEMP 96.9; O2SAT 97
[2022-08-27 05:09] LABS: HEMATOCRIT 31.4 % (36.0-47.0); MEAN CORPUSCULAR HEMOGLOBIN 29.4 pg (27.0-33.0); MEAN CORPUSCULAR HGB CONC 31.8 g/dl (32.0-36.5); MEAN CORPUSCULAR VOLUME 92.4 fl (80.0-96.0); PLATELET COUNT, AUTOMATED 150 10^3/uL (150-450); WHITE BLOOD COUNT 5.5 10^3/uL (4.0-10.0)
[2022-08-27 05:44] LABS: ALBUMIN 2.9 G/DL (3.2-5.2); ALKALINE PHOSPHATASE 63 U/L (46-116); ALT/SGPT < 9 U/L (7.0-40); AST/SGOT < 8 U/L (<34); BILIRUBIN,TOTAL 0.7 MG/DL (0.3-1.2); BLOOD UREA NITROGEN 8 MG/DL (9-23); CALCIUM LEVEL 7.7 MG/DL (8.3-10.6); CARBON DIOXIDE LEVEL 27 MMOL/L (20-31); CHLORIDE LEVEL 111 MMOL/L (98-107); CREATININE FOR GFR 0.68 MG/DL (0.55-1.30); GLOMERULAR FILTRATION RATE > 60.0 (>39); GLUCOSE, FASTING 122 MG/DL (74-106); POTASSIUM SERUM 3.7 MMOL/L (3.5-5.1); SODIUM LEVEL 144 MMOL/L (136-145); TOTAL PROTEIN 4.8 G/DL (5.7-8.2)
[2022-08-27] MEDS: D5W/0.2% SODIUM CHLORIDE 1,000 ML IV SCH (06:51)
[2022-08-27] MEDS: SUCRALFATE 1 GM TAB PO SCH ×3 (07:30→17:30)
[2022-08-27 08:08] VITALS: BP 160/66; TEMP 97.6; O2SAT 96
[2022-08-27] MEDS: FERROUS SULFATE 325MG TAB PO SCH (08:33)
[2022-08-27] MEDS: METOPROLOL TART 25 MG TABLET PO SCH (08:33)
[2022-08-27] MEDS: PANTOPRAZOLE 40MG VIAL IV SCH (08:33)
[2022-08-27 08:34] VITALS: BP 160/66
[2022-08-27] MEDS: ATORVASTATIN 10 MG TAB PO SCH (08:34)
[2022-08-27] MEDS: amLODIPine 5 MG TAB PO SCH (08:34)
[2022-08-27] MEDS: lisinopriL 40MG TAB PO SCH (08:34)
[2022-08-27] MEDS ORDERED: propofoL 200 MG/20 ML VIAL As Ordered ONE (10:17)
[2022-08-27] MEDS ORDERED: LIDOCAINE 2% 100MG/5ML SDV (FOR ANES.) As Ordered ONE (10:17)
[2022-08-27] MEDS ORDERED: fentaNYL 100 MCG/2 ML INJECTION As Ordered ONE (10:30)
[2022-08-27 11:49] VITALS: BP 168/70; TEMP 98
[2022-08-27 15:33] VITALS: BP 142/62; TEMP 96.4; O2SAT 98
== END 2022-08-27 19:20 | disposition home or self-care (01) | DRG 378 ==
LOC: M ED 21:22 → EDBD 21:22 → M ED INP 08-24 01:21 → ENRESERV 08-24 01:40 → M PCU 08-24 03:38
PROVIDERS: ADMIT Family Medicine; ATTEND Internal Medicine
PROC: 30233N1 Transfusion of Nonautologous Red Blood Cells into Peripheral Vein, Percutaneous Approach (ICD-10-PCS; 2022-08-24)
PROC: 0DJ08ZZ Inspection of Upper Intestinal Tract, Via Natural or Artificial Opening Endoscopic (ICD-10-PCS; principal; 2022-08-27 13:25)
DX: K92.2 Gastrointestinal hemorrhage, unspecified (principal); D62 Acute posthemorrhagic anemia; E87.0 Hyperosmolality and hypernatremia; I11.0 Hypertensive heart disease with heart failure; I50.9 Heart failure, unspecified; E87.6 Hypokalemia; D50.9 Iron deficiency anemia, unspecified; K29.70 Gastritis, unspecified, without bleeding; K22.70 Barrett's esophagus without dysplasia; K44.9 Diaphragmatic hernia without obstruction or gangrene; K59.00 Constipation, unspecified; K21.9 Gastro-esophageal reflux disease without esophagitis; E78.5 Hyperlipidemia, unspecified; M81.0 Age-related osteoporosis without current pathological fracture; Z90.49 Acquired absence of other specified parts of digestive tract; Z87.891 Personal history of nicotine dependence; Z79.899 Other long term (current) drug therapy; Z88.0 Allergy status to penicillin; Z88.8 Allergy status to other drugs, medicaments and biological substances; Z88.4 Allergy status to anesthetic agent; Z91.048 Other nonmedicinal substance allergy status

== ENCOUNTER → 2022-08-31 | Outpatient (CLI) | payer MEDICARE ==
[~2022-08-31] MED LIST changes: +AMLO1TAB24 PO; +B-122500 PO; +FERR1TAB8 PO; +LISI40TA4 PO; +METO1TAB87 PO; +PANT-23 PO; +SPIR-10 PO; +SUCR1TAB56 PO
[2022-08-31 14:36] LABS: HEMATOCRIT 37.2 % (36.0-47.0); HEMOGLOBIN 11.7 g/dl (12.0-15.5); MEAN CORPUSCULAR HEMOGLOBIN 29.3 pg (27.0-33.0); MEAN CORPUSCULAR HGB CONC 31.5 g/dl (32.0-36.5); PLATELET COUNT, AUTOMATED 233 10^3/uL (150-450); WHITE BLOOD COUNT 5.3 10^3/uL (4.0-10.0)
[2022-08-31 15:02] LABS: BLOOD UREA NITROGEN 9 MG/DL (9-23); CALCIUM LEVEL 9.8 MG/DL (8.3-10.6); CARBON DIOXIDE LEVEL 30 MMOL/L (20-31); CHLORIDE LEVEL 107 MMOL/L (98-107); CREATININE FOR GFR 0.88 MG/DL (0.55-1.30); GLOMERULAR FILTRATION RATE > 60.0 (>39); GLUCOSE, FASTING 114 MG/DL (74-106); POTASSIUM SERUM 3.7 MMOL/L (3.5-5.1); SODIUM LEVEL 144 MMOL/L (136-145)
== END ==
LOC: M PLALAB 09:48
PROVIDERS: ATTEND Family Medicine
DX: N17.9 Acute kidney failure, unspecified (principal); D50.8 Other iron deficiency anemias

== ENCOUNTER → 2022-09-22 | Outpatient (CLI) | payer MEDICARE ==
[2022-09-22 15:57] LABS: HEMATOCRIT 36.6 % (36.0-47.0); HEMOGLOBIN 11.8 g/dl (12.0-15.5); MEAN CORPUSCULAR HEMOGLOBIN 29.5 pg (27.0-33.0); MEAN CORPUSCULAR HGB CONC 32.2 g/dl (32.0-36.5); MEAN CORPUSCULAR VOLUME 91.5 fl (80.0-96.0); PLATELET COUNT, AUTOMATED 193 10^3/uL (150-450); WHITE BLOOD COUNT 5.5 10^3/uL (4.0-10.0)
[2022-09-22 16:23] LABS: BLOOD UREA NITROGEN 13 MG/DL (9-23); CALCIUM LEVEL 9.2 MG/DL (8.3-10.6); CARBON DIOXIDE LEVEL 28 MMOL/L (20-31); CHLORIDE LEVEL 107 MMOL/L (98-107); CREATININE FOR GFR 0.91 MG/DL (0.55-1.30); GLOMERULAR FILTRATION RATE > 60.0 (>39); GLUCOSE, FASTING 125 MG/DL (74-106); POTASSIUM SERUM 4.2 MMOL/L (3.5-5.1); SODIUM LEVEL 144 MMOL/L (136-145)
== END ==
LOC: M PLALAB 12:32
PROVIDERS: ATTEND Family Medicine
DX: N17.9 Acute kidney failure, unspecified (principal); D50.8 Other iron deficiency anemias

== ENCOUNTER → 2022-11-02 | Outpatient (REF) | payer MEDICARE ==
[2022-11-02 15:02] LABS: CREATININE FOR GFR 1.06 MG/DL (0.55-1.30); GLOMERULAR FILTRATION RATE 53.4 (>39); POTASSIUM SERUM 4.4 MMOL/L (3.5-5.1)
== END ==
LOC: M SFHCADAM 11:25
PROVIDERS: ATTEND Family Medicine
DX: R60.1 Generalized edema (principal); I11.9 Hypertensive heart disease without heart failure

== ENCOUNTER → 2022-12-25 | Outpatient (REF) | payer MEDICARE ==
[~2022-12-25] MED LIST changes: +OPTI0.5D2 OU; -OPTI0.5D5 OU
[2022-12-25 13:22] LABS: HEMATOCRIT 36.1 % (36.0-47.0); HEMOGLOBIN 11.8 g/dl (12.0-15.5); MEAN CORPUSCULAR HEMOGLOBIN 30.3 pg (27.0-33.0); MEAN CORPUSCULAR HGB CONC 32.7 g/dl (32.0-36.5); MEAN CORPUSCULAR VOLUME 92.6 fl (80.0-96.0); PLATELET COUNT, AUTOMATED 230 10^3/uL (150-450); WHITE BLOOD COUNT 6.2 10^3/uL (4.0-10.0)
[2022-12-25 13:49] LABS: FERRITIN 57.1 NG/ML (7.3-270.7)
[2022-12-25 13:51] LABS: ALBUMIN 4.5 G/DL (3.2-5.2); BILIRUBIN,TOTAL 0.5 MG/DL (0.3-1.2); CALCIUM LEVEL 9.6 MG/DL (8.3-10.6); CREATININE FOR GFR 1.45 MG/DL (0.55-1.30); GLOMERULAR FILTRATION RATE 37.2 (>39); POTASSIUM SERUM 5.5 MMOL/L (3.5-5.1); TOTAL PROTEIN 7.5 G/DL (5.7-8.2)
== END ==
LOC: M SFHCADAM 10:45
PROVIDERS: ATTEND Family Medicine
DX: R60.1 Generalized edema (principal); D50.0 Iron deficiency anemia secondary to blood loss (chronic)

== ENCOUNTER → 2023-06-02 | Outpatient (REF) | payer MEDICARE ==
[2023-06-02 18:18] LABS: ALBUMIN 4.7 G/DL (3.2-5.2); BILIRUBIN,TOTAL 0.5 MG/DL (0.3-1.2); CHOLESTEROL RISK RATIO 2.66 (<5); CREATININE FOR GFR 1.73 MG/DL (0.55-1.30); GLOMERULAR FILTRATION RATE 30.2 (>39); HDL CHOLESTEROL 61.8 MG/DL (>40); LDL CHOLESTEROL 74.4 MG/DL (<100); NON-HDL-C 103.2 MG/DL; POTASSIUM SERUM 5.8 MMOL/L (3.5-5.1); TOTAL PROTEIN 7.4 G/DL (5.7-8.2)
[2023-06-02 18:21] LABS: HEMATOCRIT 35.8 % (36.0-47.0); HEMOGLOBIN 11.4 g/dl (12.0-15.5); MEAN CORPUSCULAR HEMOGLOBIN 31.2 pg (27.0-33.0); MEAN CORPUSCULAR HGB CONC 31.8 g/dl (32.0-36.5); MEAN CORPUSCULAR VOLUME 98.1 fl (80.0-96.0); PLATELET COUNT, AUTOMATED 250 10^3/uL (150-450); RED BLOOD COUNT 3.65 10^6/uL (4.00-5.40); WHITE BLOOD COUNT 5.7 10^3/uL (4.0-10.0)
[2023-06-02 18:22] LABS: FERRITIN 23.3 NG/ML (7.3-270.7); THYROID STIMULATING HORMONE 1.306 uIU/ML (0.55-4.78)
[2023-06-02 18:23] LABS: FREE T4 1.18 NG/DL (0.89-1.76)
[2023-06-02 18:28] LABS: HEMOGLOBIN A1c 5.2 % (4.0-6.0)
== END ==
LOC: M SFHCADAM 11:46
PROVIDERS: ATTEND Family Medicine
DX: I48.91 Unspecified atrial fibrillation (principal); M81.0 Age-related osteoporosis without current pathological fracture; E78.2 Mixed hyperlipidemia; D50.8 Other iron deficiency anemias; Z79.899 Other long term (current) drug therapy

== ENCOUNTER → 2023-09-01 | Outpatient (CLI) | payer MEDICARE ==
[2023-09-01 15:44] LABS: HEMATOCRIT 28.4 % (36.0-47.0); HEMOGLOBIN 9.2 g/dl (12.0-15.5); MEAN CORPUSCULAR HEMOGLOBIN 31.5 pg (27.0-33.0); MEAN CORPUSCULAR HGB CONC 32.4 g/dl (32.0-36.5); MEAN CORPUSCULAR VOLUME 97.3 fl (80.0-96.0); PLATELET COUNT, AUTOMATED 283 10^3/uL (150-450); RED BLOOD COUNT 2.92 10^6/uL (4.00-5.40); WHITE BLOOD COUNT 8.1 10^3/uL (4.0-10.0)
[2023-09-01 16:18] LABS: ALBUMIN 4.2 G/DL (3.2-5.2); ALKALINE PHOSPHATASE 95 U/L (46-116); ALT/SGPT < 9 U/L (7.0-40); AST/SGOT < 8 U/L (<34); BILIRUBIN,TOTAL 0.3 MG/DL (0.3-1.2); BLOOD UREA NITROGEN 35 MG/DL (9-23); CALCIUM LEVEL 9.6 MG/DL (8.3-10.6); CARBON DIOXIDE LEVEL 22 MMOL/L (20-31); CHLORIDE LEVEL 113 MMOL/L (98-107); CREATININE FOR GFR 1.98 MG/DL (0.55-1.30); GLOMERULAR FILTRATION RATE 25.9 (>39); GLUCOSE, FASTING 96 MG/DL (74-106); POTASSIUM SERUM 4.8 MMOL/L (3.5-5.1); SODIUM LEVEL 143 MMOL/L (136-145); TOTAL PROTEIN 6.7 G/DL (5.7-8.2)
== END ==
LOC: M PLALAB 13:58
PROVIDERS: ATTEND Family Medicine
DX: R53.1 Weakness (principal)

== ENCOUNTER → 2023-09-08 | Outpatient (REF) | payer MEDICARE ==
[2023-09-08 12:45] LABS: HEMATOCRIT 30.9 % (36.0-47.0); HEMOGLOBIN 9.7 g/dl (12.0-15.5); MEAN CORPUSCULAR HEMOGLOBIN 30.9 pg (27.0-33.0); MEAN CORPUSCULAR HGB CONC 31.4 g/dl (32.0-36.5); MEAN CORPUSCULAR VOLUME 98.4 fl (80.0-96.0); PLATELET COUNT, AUTOMATED 241 10^3/uL (150-450); RED BLOOD COUNT 3.14 10^6/uL (4.00-5.40); WHITE BLOOD COUNT 7.5 10^3/uL (4.0-10.0)
[2023-09-08 13:07] LABS: ALBUMIN 4.3 G/DL (3.2-5.2); ALKALINE PHOSPHATASE 97 U/L (46-116); ALT/SGPT 10 U/L (7.0-40); AST/SGOT < 8 U/L (<34); BILIRUBIN,TOTAL 0.4 MG/DL (0.3-1.2); BLOOD UREA NITROGEN 31 MG/DL (9-23); CALCIUM LEVEL 9.9 MG/DL (8.3-10.6); CARBON DIOXIDE LEVEL 23 MMOL/L (20-31); CHLORIDE LEVEL 113 MMOL/L (98-107); GLOMERULAR FILTRATION RATE 30.9 (>39); GLUCOSE, FASTING 102 MG/DL (74-106); POTASSIUM SERUM 5.5 MMOL/L (3.5-5.1); SODIUM LEVEL 144 MMOL/L (136-145); TOTAL PROTEIN 6.9 G/DL (5.7-8.2)
[2023-09-08 13:10] LABS: TOTAL 25(OH) VITAMIN D 35.2 NG/ML (20.0-100.0)
[2023-09-08 13:30] LABS: CREATININE, URINE 422.3 MG/DL; MAU/CREAT RATIO 22.7 MCG/MG (0.0-30.0)
== END ==
LOC: M SFHCADAM 10:31
PROVIDERS: ATTEND Family Medicine
DX: N18.32 Chronic kidney disease, stage 3b (principal); D53.9 Nutritional anemia, unspecified; I11.9 Hypertensive heart disease without heart failure

== ENCOUNTER → 2023-09-09 | Outpatient (CLI) | payer MEDICARE ==
[2023-09-09 16:41] LABS: PERCENT SATURATION 16.8 % (13.2-45.0)
[2023-09-09 16:45] LABS: FERRITIN 29.7 NG/ML (7.3-270.7)
[2023-09-09 16:47] LABS: FOLATE 15.38 NG/ML (>5.4)
== END ==
LOC: M PLALAB 13:28
PROVIDERS: ATTEND Family Medicine
DX: D53.9 Nutritional anemia, unspecified (principal)

== ENCOUNTER → 2023-10-05 | Outpatient (CLI) | payer MEDICARE | LOC: M RAD 14:18 | PROVIDERS: ATTEND Family Medicine | DX: N17.9 Acute kidney failure, unspecified (principal) ==

== ENCOUNTER → 2023-12-06 | Outpatient (CLI) | payer MEDICARE ==
[2023-12-06 15:21] LABS: HEMATOCRIT 28.3 % (36.0-47.0); HEMOGLOBIN 9.1 g/dl (12.0-15.5); MEAN CORPUSCULAR HEMOGLOBIN 31.4 pg (27.0-33.0); MEAN CORPUSCULAR HGB CONC 32.2 g/dl (32.0-36.5); MEAN CORPUSCULAR VOLUME 97.6 fl (80.0-96.0); PLATELET COUNT, AUTOMATED 251 10^3/uL (150-450); WHITE BLOOD COUNT 5.5 10^3/uL (4.0-10.0)
[2023-12-06 15:55] LABS: ALKALINE PHOSPHATASE 95 U/L (46-116); ALT/SGPT 9 U/L (7.0-40); AST/SGOT < 8 U/L (<34); BILIRUBIN,TOTAL 0.4 MG/DL (0.3-1.2); BLOOD UREA NITROGEN 19 MG/DL (9-23); CALCIUM LEVEL 9.7 MG/DL (8.3-10.6); CARBON DIOXIDE LEVEL 28 MMOL/L (20-31); CHLORIDE LEVEL 111 MMOL/L (98-107); CREATININE FOR GFR 1.24 MG/DL (0.55-1.30); GLOMERULAR FILTRATION RATE 44.4 (>39); GLUCOSE, FASTING 63 MG/DL (74-106); IRON (FE) 285 UG/DL (50-170); PERCENT SATURATION 77.9 % (13.2-45.0); POTASSIUM SERUM 4.2 MMOL/L (3.5-5.1); SODIUM LEVEL 146 MMOL/L (136-145); TOTAL IRON BINDING CAPACITY 366 UG/DL (250-425); TOTAL PROTEIN 6.8 G/DL (5.7-8.2)
[2023-12-06 15:56] LABS: FERRITIN 27.4 NG/ML (7.3-270.7)
== END ==
LOC: M PLALAB 14:08
PROVIDERS: ATTEND Family Medicine
DX: N18.32 Chronic kidney disease, stage 3b (principal); D53.9 Nutritional anemia, unspecified

== ENCOUNTER → 2023-12-09 | Outpatient (CLI) | payer MEDICARE | LOC: M LAB 14:17 | PROVIDERS: ATTEND Family Medicine | DX: D64.9 Anemia, unspecified (principal) ==

== ENCOUNTER → 2023-12-28 | Outpatient (REF) | payer MEDICARE ==
[2023-12-28 17:18] LABS: BACTERIA, URINE AUTO NEGATIVE (NEGATIVE); RBC, URINE AUTO 1 /HPF (0-3); SQUAMOUS EPITHELIAL CELL UR AU 1 /HPF (0-6); WBC, URINE AUTO 13 /HPF (0-3)
[2023-12-28 17:42] LABS: PERCENT SATURATION 46.6 % (13.2-45.0)
[2023-12-28 17:44] LABS: FERRITIN 24.6 NG/ML (7.3-270.7)
== END ==
LOC: M LAB REF 16:55
PROVIDERS: ATTEND Internal Medicine Nephrology
DX: D50.9 Iron deficiency anemia, unspecified (principal); R31.21 Asymptomatic microscopic hematuria

== ENCOUNTER → 2024-04-26 | Outpatient (CLI) | payer MEDICARE ==
[2024-04-26 14:12] LABS: BASO % 0.6 % (0.0-1.0); EOS # 0.1 10^3/uL (0.0-0.5); EOS % 1.6 % (0.0-3.0); LYMPH # 0.8 10^3/uL (1.5-5.0); LYMPH % 15.1 % (24.0-44.0); MEAN CORPUSCULAR HEMOGLOBIN 30.1 pg (27.0-33.0); MEAN CORPUSCULAR HGB CONC 30.9 g/dl (32.0-36.5); MEAN CORPUSCULAR VOLUME 97.6 fl (80.0-96.0); MONO # 0.4 10^3/uL (0.0-0.8); MONO % 7.5 % (2.0-8.0); NEUTROPHILS # 3.8 10^3/uL (1.5-8.5); PLATELET COUNT, AUTOMATED 251 10^3/uL (150-450); RED BLOOD COUNT 2.09 10^6/uL (4.00-5.40); WHITE BLOOD COUNT 5.1 10^3/uL (4.0-10.0)
[2024-04-26 14:18] LABS: TOTAL 25(OH) VITAMIN D 53.7 NG/ML (20.0-100.0)
[2024-04-26 14:19] LABS: FERRITIN 14.2 NG/ML (7.3-270.7); THYROID STIMULATING HORMONE 0.624 uIU/ML (0.55-4.78)
[2024-04-26 14:22] LABS: FREE T4 1.54 NG/DL (0.89-1.76)
[2024-04-26 14:25] LABS: HEMATOCRIT 20.4 % (36.0-47.0)
[2024-04-26 14:26] LABS: HEMOGLOBIN 6.3 g/dl (12.0-15.5)
[2024-04-28 13:37] LABS: ALBUMIN 3.8 G/DL (3.2-5.2); BILIRUBIN,TOTAL 0.3 MG/DL (0.3-1.2); CALCIUM LEVEL 9.1 MG/DL (8.3-10.6); CREATININE FOR GFR 1.19 MG/DL (0.55-1.30); GLOMERULAR FILTRATION RATE 46.5 (>32); POTASSIUM SERUM 4.2 MMOL/L (3.5-5.1); TOTAL PROTEIN 6.3 G/DL (5.7-8.2)
== END ==
LOC: M PLALAB 11:07
PROVIDERS: ATTEND Physician Assistant Medical
DX: R53.83 Other fatigue (principal); D63.1 Anemia in chronic kidney disease; N18.32 Chronic kidney disease, stage 3b; E55.9 Vitamin D deficiency, unspecified; I48.91 Unspecified atrial fibrillation

== ENCOUNTER → 2024-04-27 | Outpatient (CLI) | payer MEDICARE | LOC: M PLALAB 11:57 | PROVIDERS: ATTEND Physician Assistant Medical | DX: D64.9 Anemia, unspecified (principal) ==

== ENCOUNTER 2024-04-28 07:03 | Outpatient (CLI) | payer MEDICARE ==
[2024-04-28] VITALS (7 sets, daily range): BP systolic 132–165; BP diastolic 69–96; TEMP 97–98.6; O2SAT 96–100
[~2024-04-28 07:03] MED LIST changes: +NS (Normal Saline) 0.9% 250 ML IV ONE; +diphenhydrAMINE 25MG CAP PO ONE
== END 2024-04-28 12:35 ==
LOC: M INFU 07:03
PROVIDERS: ATTEND Physician Assistant Medical
DX: D50.9 Iron deficiency anemia, unspecified (principal)
CPT/HCPCS: 36430; P9016

== ENCOUNTER → 2024-04-28 | Outpatient (REF) | payer MEDICARE | LOC: M SFHCPLAZ 13:15 | PROVIDERS: ATTEND Physician Assistant Medical | DX: Z53.9 Procedure and treatment not carried out, unspecified reason (principal) ==

== ENCOUNTER → 2024-05-01 | Outpatient (CLI) | payer MEDICARE ==
[~2024-05-01] MED LIST changes: -NS (Normal Saline) 0.9% 250 ML IV ONE; -diphenhydrAMINE 25MG CAP PO ONE
[2024-05-01 13:20] LABS: HEMATOCRIT 24.9 % (36.0-47.0); HEMOGLOBIN 7.8 g/dl (12.0-15.5); MEAN CORPUSCULAR HEMOGLOBIN 28.9 pg (27.0-33.0); MEAN CORPUSCULAR HGB CONC 31.3 g/dl (32.0-36.5); MEAN CORPUSCULAR VOLUME 92.2 fl (80.0-96.0); PLATELET COUNT, AUTOMATED 267 10^3/uL (150-450); WHITE BLOOD COUNT 7.7 10^3/uL (4.0-10.0)
== END ==
LOC: M PLALAB 12:02
PROVIDERS: ATTEND Physician Assistant Medical
DX: D50.8 Other iron deficiency anemias (principal)

== ENCOUNTER → 2024-05-03 | Outpatient (CLI) | payer MEDICARE | LOC: M PLALAB 15:35 | PROVIDERS: ATTEND Physician Assistant Medical | DX: D50.9 Iron deficiency anemia, unspecified (principal); D63.8 Anemia in other chronic diseases classified elsewhere ==

== ENCOUNTER 2024-05-04 08:30 | Outpatient (CLI) | payer MEDICARE ==
[~2024-05-04] VITALS: Ht 157.5 cm; Wt 84.0 kg
[~2024-05-04 08:30] MED LIST changes: +diphenhydrAMINE 25MG CAP PO ONE
[2024-05-04 09:31] VITALS: BP 160/77; TEMP 98.9; O2SAT 98
[2024-05-04 09:45] VITALS: BP 144/63; TEMP 98.3
[2024-05-04 10:52] VITALS: BP 154/67; TEMP 97.7; O2SAT 98
[2024-05-04 11:15] VITALS: BP 137/63; TEMP 97.6; O2SAT 98
[2024-05-04 11:30] VITALS: BP 127/65; TEMP 98.3; O2SAT 97
[2024-05-04 12:45] VITALS: BP 140/63; TEMP 98.6; O2SAT 98
== END 2024-05-04 13:15 ==
LOC: M INFU 08:30
PROVIDERS: ATTEND Physician Assistant Medical
DX: D50.9 Iron deficiency anemia, unspecified (principal); Z88.0 Allergy status to penicillin; Z88.8 Allergy status to other drugs, medicaments and biological substances
CPT/HCPCS: 36430; P9016

== ENCOUNTER → 2024-05-05 | Outpatient (CLI) | payer MEDICARE ==
[~2024-05-05] MED LIST changes: -diphenhydrAMINE 25MG CAP PO ONE
[2024-05-05 15:49] LABS: HEMATOCRIT 31.3 % (36.0-47.0); HEMOGLOBIN 9.9 g/dl (12.0-15.5); MEAN CORPUSCULAR HEMOGLOBIN 28.4 pg (27.0-33.0); MEAN CORPUSCULAR HGB CONC 31.6 g/dl (32.0-36.5); MEAN CORPUSCULAR VOLUME 89.7 fl (80.0-96.0); PLATELET COUNT, AUTOMATED 271 10^3/uL (150-450); RED BLOOD COUNT 3.49 10^6/uL (4.00-5.40); WHITE BLOOD COUNT 5.8 10^3/uL (4.0-10.0)
[2024-05-05 15:56] LABS: ALBUMIN 3.8 G/DL (3.2-5.2); ALKALINE PHOSPHATASE 90 U/L (35-104); ALT/SGPT 12 U/L (7.0-40); AST/SGOT < 8 U/L (<34); BILIRUBIN,TOTAL 0.4 MG/DL (0.3-1.2); BLOOD UREA NITROGEN 24 MG/DL (9-23); CALCIUM LEVEL 8.9 MG/DL (8.3-10.6); CARBON DIOXIDE LEVEL 29 MMOL/L (20-31); CHLORIDE LEVEL 107 MMOL/L (98-107); CHOLESTEROL LEVEL 151 MG/DL (<200); CHOLESTEROL RISK RATIO 2.74 (<5); CREATININE FOR GFR 1.13 MG/DL (0.55-1.30); GLOMERULAR FILTRATION RATE 49.3 (>32); GLUCOSE, FASTING 108 MG/DL (74-106); HDL CHOLESTEROL 55.1 MG/DL (>40); LDL CHOLESTEROL 76.1 MG/DL (<100); NON-HDL-C 95.9 MG/DL; POTASSIUM SERUM 4.2 MMOL/L (3.5-5.1); SODIUM LEVEL 148 MMOL/L (136-145); TOTAL PROTEIN 6.5 G/DL (5.7-8.2); TRIGLYCERIDES LEVEL 99 MG/DL (<150)
[2024-05-05 17:04] LABS: HEMOGLOBIN A1c 4.5 % (4.0-6.0)
== END ==
LOC: M PLALAB 13:01
PROVIDERS: ATTEND Family Medicine
DX: E78.2 Mixed hyperlipidemia (principal); N18.32 Chronic kidney disease, stage 3b; D63.1 Anemia in chronic kidney disease; E11.9 Type 2 diabetes mellitus without complications

== ENCOUNTER → 2024-05-17 | Outpatient (REF) | payer MEDICARE ==
[2024-05-17 18:00] LABS: BASO % 0.8 % (0.0-1.0); EOS # 0.2 10^3/uL (0.0-0.5); EOS % 3.4 % (0.0-3.0); HEMOGLOBIN 11.1 g/dl (12.0-15.5); LYMPH # 0.8 10^3/uL (1.5-5.0); LYMPH % 14.9 % (24.0-44.0); MEAN CORPUSCULAR HEMOGLOBIN 28.7 pg (27.0-33.0); MEAN CORPUSCULAR HGB CONC 30.8 g/dl (32.0-36.5); MONO # 0.4 10^3/uL (0.0-0.8); MONO % 8.4 % (2.0-8.0); NEUTROPHILS # 3.8 10^3/uL (1.5-8.5); NEUTROPHILS % 72.1 % (36.0-66.0); PLATELET COUNT, AUTOMATED 272 10^3/uL (150-450); RED BLOOD COUNT 3.87 10^6/uL (4.00-5.40); WHITE BLOOD COUNT 5.2 10^3/uL (4.0-10.0)
[2024-05-17 18:09] LABS: CALCIUM LEVEL 9.5 MG/DL (8.3-10.6); CREATININE FOR GFR 1.24 MG/DL (0.55-1.30); GLOMERULAR FILTRATION RATE 44.3 (>32); PERCENT SATURATION 64.8 % (13.2-45.0); POTASSIUM SERUM 4.7 MMOL/L (3.5-5.1)
== END ==
LOC: M SFHCADAM 11:36
PROVIDERS: ATTEND Physician Assistant
DX: D50.0 Iron deficiency anemia secondary to blood loss (chronic) (principal)

== ENCOUNTER 2024-06-05 06:43 | Day surgery (SDC) | payer MEDICARE ==
[~2024-06-05] VITALS: Ht 157.5 cm; Wt 88.1 kg
[2024-06-05] MEDS ORDERED: LIDOCAINE 2% 100MG/5ML SDV (FOR ANES.) As Ordered ONE (06:58)
[2024-06-05] MEDS ORDERED: propofoL 200 MG/20 ML VIAL As Ordered ONE (06:58)
[2024-06-05] MEDS ORDERED: fentaNYL 100 MCG/2 ML INJECTION As Ordered ONE (07:33)
[2024-06-05 08:01] VITALS: BP 130/65; O2SAT 98
== END 2024-06-05 08:03 | disposition home or self-care (01) ==
LOC: M OPP 06:43
PROVIDERS: ATTEND Internal Medicine Gastroenterology
DX: K92.2 Gastrointestinal hemorrhage, unspecified (principal); I48.91 Unspecified atrial fibrillation; Z88.0 Allergy status to penicillin; Z88.1 Allergy status to other antibiotic agents; Z88.4 Allergy status to anesthetic agent; Z91.048 Other nonmedicinal substance allergy status; Z79.899 Other long term (current) drug therapy
CPT/HCPCS: 43235; J3010

== ENCOUNTER 2024-06-14 06:39 | Day surgery (SDC) | payer MEDICARE ==
[~2024-06-14] VITALS: Ht 157.5 cm; Wt 88.9 kg
[~2024-06-14 06:39] MED LIST changes: -SUCR1ORA2 PO; +SUCR1ORA20 PO
[2024-06-14] MEDS ORDERED: propofoL 200 MG/20 ML VIAL As Ordered ONE (07:30)
[2024-06-14 07:41] VITALS: TEMP 97.9
[2024-06-14 08:03] VITALS: BP 164/74; O2SAT 98
== END 2024-06-14 08:05 | disposition home or self-care (01) ==
LOC: M OPP 06:39
PROVIDERS: ATTEND Internal Medicine Gastroenterology
DX: K22.89 Other specified disease of esophagus (principal); K44.9 Diaphragmatic hernia without obstruction or gangrene; K92.2 Gastrointestinal hemorrhage, unspecified; I48.91 Unspecified atrial fibrillation; Z88.0 Allergy status to penicillin; Z88.1 Allergy status to other antibiotic agents; Z91.041 Radiographic dye allergy status; Z91.048 Other nonmedicinal substance allergy status; Z79.899 Other long term (current) drug therapy

== ENCOUNTER 2024-08-20 19:58 | Observation (INO) | payer MEDICARE ==
[~2024-08-20] VITALS: Ht 165.1 cm; Wt 86.1 kg
[~2024-08-20 19:58] MED LIST changes: +LISI40TA10 PO; -LISI40TA4 PO
[2024-08-20 20:46] LABS: BASO # 0.0 10^3/uL (0.0-0.2); BASO % 0.3 % (0.0-1.0); EOS # 0.0 10^3/uL (0.0-0.5); EOS % 0.6 % (0.0-3.0); LYMPH # 0.7 10^3/uL (1.5-5.0); LYMPH % 9.9 % (24.0-44.0); MONO # 0.5 10^3/uL (0.0-0.8); MONO % 7.1 % (2.0-8.0); NEUTROPHILS # 5.7 10^3/uL (1.5-8.5); NEUTROPHILS % 81.8 % (36.0-66.0); PLATELET COUNT, AUTOMATED 225 10^3/uL (150-450)
[2024-08-20] MEDS: NS (Normal Saline) 0.9% 1,000 ML IV ONE (20:53)
[2024-08-20] MEDS: ONDANSETRON 4MG 2ML VIAL IV ONE (21:12)
[2024-08-20 21:13] LABS: CK-MB VALUE MASS < 1.0 NG/ML (<3.6)
[2024-08-20 21:20] LABS: CPK CREATINE PHOSPHOKINASE 102 U/L (34-145)
[2024-08-20 21:21] LABS: ALT/SGPT 11 U/L (7.0-40); AST/SGOT 14 U/L (<34); CALCIUM LEVEL 8.8 MG/DL (8.3-10.6); CARBON DIOXIDE LEVEL 27 MMOL/L (20-31); CHLORIDE LEVEL 103 MMOL/L (98-107); CREATININE FOR GFR 1.50 MG/DL (0.55-1.30); GLOMERULAR FILTRATION RATE 35.0 (>32); POTASSIUM SERUM 4.8 MMOL/L (3.5-5.1); SODIUM LEVEL 144 MMOL/L (136-145)
[2024-08-21] VITALS (11 sets, daily range): BP systolic 92–175; BP diastolic 45–67; TEMP 97.8–99.1; O2SAT 95–100
[2024-08-21] MEDS: PANTOPRAZOLE 40MG VIAL IV ONE (04:54)
[2024-08-21] MEDS ORDERED: DIFL5DRO OS (10:04)
[2024-08-21] MEDS ORDERED: HOME MED LIST COMPLETE! XX SCH (10:05)
[2024-08-21 13:49] LABS: PLATELET COUNT, AUTOMATED 177 10^3/uL (150-450)
[2024-08-21] MEDS ORDERED: DOCUSATE SODIUM 100 MG CAPSULE PO PRN (19:40)
[2024-08-21] MEDS: TORSEMIDE 10 MG TABLET PO SCH (20:58)
[2024-08-21] MEDS: SUCRALFATE 1 GM TAB PO SCH (20:59)
[2024-08-21] MEDS: PANTOPRAZOLE 40MG TAB PO SCH (21:00)
[2024-08-21] MEDS: ATORVASTATIN 10 MG TAB PO SCH (21:00)
[2024-08-21] MEDS: amLODIPine 5 MG TAB PO SCH (21:00)
[2024-08-21] MEDS: SPIRONOLACTONE 25 MG TAB PO SCH (21:01)
[2024-08-21] MEDS: METOPROLOL TART 25 MG TABLET PO SCH (21:01)
[2024-08-22] VITALS (8 sets, daily range): BP systolic 118–163; BP diastolic 60–68; TEMP 97.2–99; O2SAT 96–100
[2024-08-22] MEDS: VITAMIN D 1,000 INTERNATIONAL UNITS TABLET PO SCH (08:17)
[2024-08-22] MEDS: CYANOCOBALAMIN 500 MCG TAB PO SCH (08:17)
[2024-08-22] MEDS: FERROUS SULFATE 325 MG TAB PO SCH (08:17)
[2024-08-22 08:52] LABS: BASO # 0.0 10^3/uL (0.0-0.2); BASO % 0.5 % (0.0-1.0); EOS # 0.2 10^3/uL (0.0-0.5); EOS % 2.6 % (0.0-3.0); LYMPH # 0.7 10^3/uL (1.5-5.0); LYMPH % 12.8 % (24.0-44.0); MONO # 0.4 10^3/uL (0.0-0.8); MONO % 7.7 % (2.0-8.0); NEUTROPHILS # 4.3 10^3/uL (1.5-8.5); NEUTROPHILS % 76.0 % (36.0-66.0); PLATELET COUNT, AUTOMATED 174 10^3/uL (150-450)
[2024-08-22 09:19] LABS: CALCIUM LEVEL 8.7 MG/DL (8.3-10.6); CARBON DIOXIDE LEVEL 25.0 MMOL/L (20-31); CHLORIDE LEVEL 115.0 MMOL/L (98-107); CREATININE FOR GFR 1.18 MG/DL (0.55-1.30); GLOMERULAR FILTRATION RATE 46.7 (>32); MAGNESIUM LEVEL 2.0 MG/DL (1.8-2.4); POTASSIUM SERUM 4.2 MMOL/L (3.5-5.1); SODIUM LEVEL 152.0 MMOL/L (136-145)
[2024-08-22 11:38] LABS: CALCIUM LEVEL 8.8 MG/DL (8.3-10.6); CARBON DIOXIDE LEVEL 26.0 MMOL/L (20-31); CHLORIDE LEVEL 113.0 MMOL/L (98-107); CREATININE FOR GFR 1.22 MG/DL (0.55-1.30); GLOMERULAR FILTRATION RATE 44.9 (>32); POTASSIUM SERUM 4.1 MMOL/L (3.5-5.1); SODIUM LEVEL 148.0 MMOL/L (136-145)
== END 2024-08-22 16:50 | disposition home or self-care (01) ==
LOC: EDBD 19:58 → M ED 19:58 → M ED INP 19:59 → M MSPAV 08-21 15:45
PROVIDERS: ADMIT Student in an Organized Health Care Education/Training Program; ATTEND Internal Medicine
DX: D50.9 Iron deficiency anemia, unspecified (principal); K21.9 Gastro-esophageal reflux disease without esophagitis; K31.7 Polyp of stomach and duodenum; Z87.19 Personal history of other diseases of the digestive system; E87.0 Hyperosmolality and hypernatremia; N17.9 Acute kidney failure, unspecified; N18.30 Chronic kidney disease, stage 3 unspecified; I12.9 Hypertensive chronic kidney disease with stage 1 through stage 4 chronic kidney disease, or unspecified chronic kidney disease; M81.0 Age-related osteoporosis without current pathological fracture; Z79.899 Other long term (current) drug therapy
CPT/HCPCS: 36415; 36430; 78278; 80048; 80076; 82550; 82553; 83605; 83690; 83735; 84484; 85025; 85027; 86850; 86900; 86901; 86920; 93005; 93041; 96374; 96375; 99285; A9560; G0378; J2405; J2470; P9016

== ENCOUNTER → 2024-09-01 | Outpatient (CLI) | payer MEDICARE ==
[~2024-09-01] MED LIST changes: +DIFL5DRO OS
[2024-09-01 15:46] LABS: PLATELET COUNT, AUTOMATED 292 10^3/uL (150-450)
[2024-09-01 15:48] LABS: CALCIUM LEVEL 9.3 MG/DL (8.3-10.6); CARBON DIOXIDE LEVEL 29.0 MMOL/L (20-31); CHLORIDE LEVEL 104.0 MMOL/L (98-107); CREATININE FOR GFR 1.46 MG/DL (0.55-1.30); GLOMERULAR FILTRATION RATE 36.2 (>32); IRON (FE) 358.0 UG/DL (50-170); PERCENT SATURATION 97.0 % (13.2-45.0); POTASSIUM SERUM 3.9 MMOL/L (3.5-5.1); SODIUM LEVEL 144.0 MMOL/L (136-145)
== END ==
LOC: M PLALAB 14:21
PROVIDERS: ATTEND Family Medicine
DX: K92.2 Gastrointestinal hemorrhage, unspecified (principal); I11.9 Hypertensive heart disease without heart failure

== ENCOUNTER → 2024-11-07 | Outpatient (REF) | payer MEDICARE ==
[2024-11-07 19:17] LABS: IRON (FE) 113.0 UG/DL (50-170)
[2024-11-07 19:18] LABS: PERCENT SATURATION 31.9 % (13.2-45.0)
== END ==
LOC: M LAB REF 18:02
PROVIDERS: ATTEND Internal Medicine Nephrology
DX: N18.9 Chronic kidney disease, unspecified (principal); D63.1 Anemia in chronic kidney disease

== ENCOUNTER 2024-12-11 11:03 | Outpatient (CLI) | payer MEDICARE ==
[~2024-12-11] VITALS: Ht 157.5 cm; Wt 86.8 kg
[2024-12-11 11:00] VITALS: BP 168/70; O2SAT 98
[~2024-12-11 11:03] MED LIST changes: +ALBUTEROL SULFATE 2.5 MG/0.5 ML INH CONCENTRATE NEB SOLN INH PRN; +EPINEPHrine INJ 1 MG/ML 1ML AMP IM PRN; +diphenhydrAMINE 50 MG/ML VIAL IV PRN
[2024-12-11] MEDS: IRON SUCROSE 300 MG in NS 250 ML IV ONE (11:37)
[2024-12-11 14:00] VITALS: BP 140/80; O2SAT 99
== END 2024-12-11 14:00 | disposition home or self-care (01) ==
LOC: M INFU 11:03
PROVIDERS: ATTEND Internal Medicine Nephrology
DX: D50.9 Iron deficiency anemia, unspecified (principal); Z88.0 Allergy status to penicillin; Z88.1 Allergy status to other antibiotic agents; Z88.8 Allergy status to other drugs, medicaments and biological substances
CPT/HCPCS: 96365; 96366; J1756

== ENCOUNTER 2024-12-18 10:26 | Outpatient (CLI) | payer MEDICARE ==
[~2024-12-18] VITALS: Ht 157.5 cm; Wt 86.8 kg
[~2024-12-18 10:26] MED LIST changes: +NS (Normal Saline) 0.9% 1,000 ML IV SCH
[2024-12-18 10:40] VITALS: BP 140/60; O2SAT 97
[2024-12-18] MEDS: IRON SUCROSE 300 MG in NS 250 ML IV ONE (11:13)
[2024-12-18 13:00] VITALS: BP 142/50; O2SAT 98
== END 2024-12-18 13:00 | disposition home or self-care (01) ==
LOC: M INFU 10:26
PROVIDERS: ATTEND Internal Medicine Nephrology
DX: D50.9 Iron deficiency anemia, unspecified (principal); Z88.0 Allergy status to penicillin; Z88.1 Allergy status to other antibiotic agents; Z88.8 Allergy status to other drugs, medicaments and biological substances
CPT/HCPCS: 96365; 96366; J1756

== ENCOUNTER 2025-01-04 10:08 | Outpatient (CLI) | payer MEDICARE ==
[~2025-01-04] VITALS: Ht 157.5 cm; Wt 86.8 kg
[~2025-01-04 10:08] MED LIST changes: +IRON SUCROSE 300 MG in NS 250 ML IV ONE
[2025-01-04 10:30] VITALS: BP 152/76; O2SAT 97
[2025-01-04] MEDS: IRON SUCROSE 300 MG in NS 250 ML IV ONE (10:31)
[2025-01-04 12:38] VITALS: BP 140/80; O2SAT 98
== END 2025-01-04 12:45 | disposition home or self-care (01) ==
LOC: M INFU 10:08
PROVIDERS: ATTEND Internal Medicine Nephrology
DX: D50.9 Iron deficiency anemia, unspecified (principal); Z88.0 Allergy status to penicillin; Z88.1 Allergy status to other antibiotic agents; Z88.8 Allergy status to other drugs, medicaments and biological substances
CPT/HCPCS: 96365; 96366; J1756